=== PATIENT | male | born 1950 | race Caucasian/White ===

== ENCOUNTER 2017-10-23 12:32 | Emergency (ER) | payer MEDICARE ==
[~2017-10-23] VITALS: Ht 162.6 cm; Wt 73.5 kg
--- OUTSIDE RECORDS SUMMARY | ~2017-10-23 | XMS | Clinical Summary ---
Demographics + + + | Address | [address] | | | [place] [address] | + + + | Home Phone | | + + + | Preferred Language | Unknown | + + + | Marital Status | | + + + | Taoism Affiliation | 1041 | + + + | Race | Unknown | + + + | Ethnic Group | Unknown | + + + Author + + + | Author | [facility] | | | and [place] | + + + | Organization | [facility] | | | and [place] | + + + | Address | Unknown | + + + | Phone | Unavailable | + + + Support + + +---------+ + | Name | Relationship | Address | Phone | + + +---------+ + | GRETCHEN JAVIER | ECON | Unknown | | + + +---------+ + | Manuela Badillo | ECON | Unknown | | + + +---------+ + Care Team Providers + +------+ + | Care Milling Operator Name | Role | Phone | + +------+ + | Andrei Presley | PP | | | MD | | | + +------+ + Allergies + + + + + + | Active Allergy | Reactions | Severity | Noted | Comments | | | | | Date | | + + + + + + | Cefuroxime | | | 06/09/20 | Joint pain. | | | | | 14 | | + + + + + + | Iodinated Diagnostic | Hives, Shortness Of | High | 06/09/20 | | | Agents | Breath | | 14 | | + + + + + + Current Medications + + +-------+---------+------+------+-------+ | Prescription | Sig. | Disp. | Refills | Star | End | Statu | | | | | | t | Date | s | | | | | | Date | | | + + +-------+---------+------+------+-------+ | oxyCODONE | Take 15 mg by mouth | | | | | Activ | | (ROXICODONE) 15 mg | every 4 hours as | | | | | e | | immediate release | needed. | | | | | | | tablet | | | | | | | + + +-------+---------+------+------+-------+ | metoprolol | Take 50 mg by mouth | | | | | Activ | | succinate | Daily. | | | | | e | | (TOPROL-XL) 50 mg 24 | | | | | | | | hr tablet | | | | | | | + + +-------+---------+------+------+-------+ | baclofen | Take 10 mg by mouth | | | | | Activ | | (LIORESAL) 10 mg | 3 times daily. | | | | | e | | tablet | | | | | | | + + +-------+---------+------+------+-------+ | albuterol (PROAIR | Inhale 2 puffs into | | | | | Activ | | HFA) 90 mcg/puff | the lungs every 6 | | | | | e | | inhaler | hours as needed. | | | | | | + + +-------+---------+------+------+-------+ | | Take 1 tablet by | | | | | Activ | | butalbital-acetamino | mouth every 4 hours | | | | | e | | phen-caffeine | as needed. | | | | | | | (FIORICET) per | | | | | | | | tablet | | | | | | | + + +-------+---------+------+------+-------+ | albuterol 2.5 mg/3 | Take 2.5 mg by | | | | | Activ | | mL nebulizer | nebulization every 6 | | | | | e | | solution | hours as needed. | | | | | | + + +-------+---------+------+------+-------+ Active Problems + + + | Problem | Noted Date | + + + | ANITA (obstructive sleep apnea) | 06/16/2014 | + + + | Abnormal chest x-ray | 06/16/2014 | + + + | Von Willebrand's disease (HCC) | | + + + | Osteoarthritis | | + + + | Lumbar spondylosis | | + + + | Hypertension | | + + + | Chronic pansinusitis | | + + + Immunizations + + + + | Name | Dates Previously Given | Next Due | + + + + | INFLUENZA PF 18 Y OR | 06/03/2013 | | | >,TRIVALENT | | | | RECOMBINANT | | | + + + + | PNEUMOCOCCAL | 06/03/2013 | | | POLYSACCHARIDE | | | | 23-VALENT (PPSV23) | | | + + + + Family History + + +------+ + | Medical History | Relation | Name | Comments | + + +------+ + | Cancer | Brother | | brain tumor | + + +------+ + | Heart disease | Brother | | | + + +------+ + | Cancer | Father | | in his hips | + + +------+ + | Other (see comment) | Father | | bone disease from exposure to coral | + + +------+ + | Alcohol abuse | Mother | | | + + +------+ + + +------+ + + | Relation | Name | Status | Comments | + +------+ + + | Brother | | | heart disease | + +------+ + + | Brother | | Alive | | + +------+ + + | Father | | | cancer | + +------+ + + | Mother | | | alcohol abuse | + +------+ + + | Sister | | Alive | | + +------+ + + | Sister | | Alive | | + +------+ + + | Sister | | Alive | | + +------+ + + | Sister | | Alive | | + +------+ + + | Sister | | Alive | | + +------+ + + | Sister | | Alive | | + +------+ + + Social History + + + +--------+ + | Tobacco Use | Types | Packs/Day | Years | Date | | | | | Used | | + + + +--------+ + | Former Smoker | Cigarettes | 1 | 19 | Quit: 11/13/2013 | + + + +--------+ + + + +---------+ + | Alcohol Use | Drinks/We | oz/Week | Comments | | | ek | | | + + +---------+ + | Yes | | 0.0 | 4-6 per day at the most, ranges from 0 to | | | | | 4-6 | + + +---------+ + + + + | Sex Assigned at | Date Recorded | | | | + + + | Not on file | | + + + Last Filed Vital Signs + + + + | Vital Sign | Reading | Time Taken | + + + + | Blood Pressure | 126/80 | 06/16/20144 PST | + + + + | Pulse | 87 | 06/16/20144 PST | + + + + | Temperature | 37 C (98.6 F) | 06/16/20144 PST | + + + + | Respiratory Rate | 14 | 06/03/2014 1336 PST | + + + + | Oxygen Saturation | 95% | 06/16/20141433 PST | + + + + | Inhaled Oxygen | - | - | | Concentration | | | + + + + | Weight | 76.4 kg (168 lb 6.4 | 06/16/20141433 PST | | | oz) | | + + + + | Height | 161.3 cm (5' 3.5") | 06/16/20141433 PST | + + + + | Body Mass Index | 29.36 | 06/16/20141433 PST | + + + + Plan of Treatment + + + + + | Health Maintenance | Due Date | Last Done | Comments | + + + + + | Hepatitis C | | | | | Screening | 0 | | | + + + + + | Vaccine: | | | | | Dtap/Tdap/Td (1 - | 9 | | | | Tdap) | | | | + + + + + | COLON CANCER | | | | | SCREENING | 0 | | | | (COLONOSCOPY EVERY | | | | | 10 YEARS 50-75) | | | | + + + + + | Vaccine: Zoster (#1) | | | | | | 0 | | | + + + + + | Vaccine: | | 06/03/2013 | | | Pneumococcal 65+ | 5 | | | | Low/Medium Risk (1 | | | | | of 2 - PCV13) | | | | + + + + + | Vaccine: Influenza | | 06/03/2013 | | | (Season Ended) | 8 | | | + + + + + Results Not on filefrom Last 3 Months Insurance + +--------+ +--------+ +---------+ | Payer | Benefi | Subscriber | Type | Phone | Address | | | t Plan | ID | | | | | | / | | | | | | | Group | | | | | + +--------+ +--------+ +---------+ | MEDICARE | MEDICA | xxxxxxxxxx | Medica | +- | | | | RE | | re | [phone] | | | | PART A | | | | | | | AND B | | | | | + +--------+ +--------+ +---------+ | HEALTHNET | HEALTH | xxxxxxxxx | Indemn | [phone] | | | | NET | | ity | [phone] | | | | MDCR | | | | | | | SUPPL | | | | | + +--------+ +--------+ +---------+ + +--------+ +--------+ + + | Guarantor Name | Accoun | Relation to | Date | Phone | Billing Address | | | t Type | Patient | of | | | | | | | | | | + +--------+ +--------+ + + | KIKE BADILLO | Person | Self | [birth year] | Home: | [address] | | | al/Fam | | 1950 | [phone] | [place] [address] | | | tish | | | [phone] | | + +--------+ +--------+ + +
--- OUTSIDE RECORDS SUMMARY | ~2017-10-23 | XMS | Clinical Summary ---
Demographics + + + | Address | [address] | | | [place] [address] | + + + | Home Phone | | + + + | Preferred Language | Unknown | + + + | Marital Status | | + + + | Caodaism Affiliation | Unknown | + + + | Race | White | + + + | Ethnic Group | Not or | + + + Author + + + | Author | [facility] | + + + | Organization | [facility] | + + + | Address | Unknown | + + + | Phone | Unavailable | + + + Support + + +---------+ + | Name | Relationship | Address | Phone | + + +---------+ + | Bridgett Irwin | ECON | Unknown | | + + +---------+ + Care Team Providers + +------+ + | Care Chartered Wealth Manager Name | Role | Phone | + +------+ + PP | Unavailable | + +------+ + Source Comments MESERET is fully live on both [facility] Ambulatory and [facility] Allergies + + + + + + | Active Allergy | Reactions | Severity | Noted | Comments | | | | | Date | | + + + + + + | Clarification Needed | Angioedema | High | 04/23/20 | Reaction to Metal | | | | | 14 | "in mouth" | + + + + + + | Contrast Medium | Anaphylaxis, Contact | High | 04/23/20 | | | | Dermatitis | | 14 | | + + + + + + Current Medications + + +-------+---------+------+------+-------+ | Prescription | Sig. | Disp. | Refills | Star | End | Statu | | | | | | t | Date | s | | | | | | Date | | | + + +-------+---------+------+------+-------+ | baclofen 10 mg | Take 10 mg by mouth | | | | | Activ | | oral tablet | two times daily. | | | | | e | + + +-------+---------+------+------+-------+ | oxyCODONE, | Take 5 mg by mouth | | | | | Activ | | immediate release, 5 | every six hours as | | | | | e | | mg oral tablet | needed. | | | | | | + + +-------+---------+------+------+-------+ | | Take 1 tablet by | | | | | Activ | | losartan-hydrochloro | mouth once daily. | | | | | e | | thiazide 50-12.5 mg | | | | | | | | oral tablet | | | | | | | + + +-------+---------+------+------+-------+ | metoprolol | Take 50 mg by mouth | | | | | Activ | | succinate 50 mg oral | once daily. | | | | | e | | tablet extended | | | | | | | | release 24 hr | | | | | | | + + +-------+---------+------+------+-------+ Active Problems Not on file Social History + +-------+ +--------+ + | Tobacco Use | Types | Packs/Day | Years | Date | | | | | Used | | + +-------+ +--------+ + | Former Smoker | | | | Quit: 08/16/2013 | + +-------+ +--------+ + + + + | Sex Assigned at | Date Recorded | | | | + + + | Not on file | | + + + Last Filed Vital Signs + + + + | Vital Sign | Reading | Time Taken | + + + + | Blood Pressure | 126/76 | 04/23/2014 9:55 AM PDT | + + + + | Pulse | 75 | 04/23/2014 9:55 AM PDT | + + + + | Temperature | - | - | + + + + | Respiratory Rate | - | - | + + + + | Oxygen Saturation | - | - | + + + + | Inhaled Oxygen | - | - | | Concentration | | | + + + + | Weight | 77.1 kg (170 lb) | 04/23/2014 9:55 AM PDT | + + + + | Height | 162.6 cm (5' 4") | 04/23/2014 9:55 AM PDT | + + + + | Body Mass Index | 29.18 | 04/23/2014 9:55 AM PDT | + + + + Plan of Treatment + + + + + | Health Maintenance | Due Date | Last Done | Comments | + + + + + | INFLUENZA VACCINE | | | | | (FLU SHOT) | 8 | | | + + + + + Results Not on filefrom Last 3 Months
--- OUTSIDE RECORDS SUMMARY | ~2017-10-23 | XMS | Clinical Summary ---
Demographics + + + | Address | [address] | | | [place] [address] | + + + | Home Phone | | + + + | Preferred Language | Unknown | + + + | Marital Status | | + + + | Faith Affiliation | 1041 | + + + | Race | Unknown | + + + | Ethnic Group | Unknown | + + + Author + + + | Author | [facility] | + + + | Organization | [facility] | + + + | Address | Unknown | + + + | Phone | Unavailable | + + + Support + + + + + | Name | Relationship | Address | Phone | + + + + + | Manuela Baldwin | ECON | [address] | | | | | [place] | | | | | [address] | | + + + + + Care Team Providers + +------+ + | Care Snowboard Instructor Name | Role | Phone | + +------+ + | Clinic, [facility] | PP | Unavailable | | Community | | | + +------+ + Allergies [...]
--- OUTSIDE RECORDS SUMMARY | ~2017-10-23 | XMS | Clinical Summary ---
Demographics + + + | Address | [address] | | | [place] [address] | + + + | Home Phone | | + + + | Preferred Language | Unknown | + + + | Marital Status | | + + + | Faith Affiliation | 1041 | + + + | Race | Unknown | + + + | Ethnic Group | Unknown | + + + Author + + + | Author | [facility] | | | and [place] | + + + | Organization | [facility] | | | and [place] [...] Team Providers + +------+ + | Care Hand Knitter Name | Role | Phone | + [...] | HEALTH | xxxxxxxxx | Indemn | [phone] | | | | NET | | ity | [phone] | | | | MDCR | | [...] | Self | [birth year] | Home: | [address] | | | al/Fam | | 1950 | [phone] | [place] [address] | | | tish | | | [phone] | | + +--------+ +--------+ + +
--- OUTSIDE RECORDS SUMMARY | ~2017-10-23 | XMS | Clinical Summary ---
Demographics + + + | Address | [address] | | | [place] [address] | + + + | Home Phone | | + + + | Preferred Language | Unknown | + + + | Marital Status | | + + + | Jain Affiliation | Unknown | + + + | Race | White | + + + | Ethnic Group | Not or | + + + Author + + + | Author | [facility] | + + + | Organization | [facility] | + + + | Address | Unknown | + + + | Phone | Unavailable | + + + Support + + +---------+ + | Name | Relationship | Address | Phone | + + +---------+ + | Bridgett Irwin | ECON | Unknown | | + + +---------+ + Care Team Providers + +------+ + | Care Cook Dinner Name | Role | Phone | + +------+ + PP | Unavailable | + +------+ + Source Comments MESERET is fully live on both [facility] Ambulatory and [facility] InPatient.[facility] Allergies + + + + + + [...]
--- OUTSIDE RECORDS SUMMARY | ~2017-10-23 | XMS | Clinical Summary ---
Demographics + + + | Address | [address] | | | [place] [address] | + + + | Home Phone | | + + + | Preferred Language | Unknown | + + + | Marital Status | | + + + | Islam Affiliation | 1041 | + + + | Race | Unknown | + + + | Ethnic Group | Unknown | + + + Author + + + | Author | [facility] | + + + | Organization | [facility] | + + + | Address | Unknown | + + + | Phone | Unavailable | + + + Support + + + + + | Name | Relationship | Address | Phone | + + + + + | Manuela Baldwin | ECON | [address] | | | | | [place] | | | | | [address] | | + + + + + Care Team Providers + +------+ + | Care Engraver Flatware Name | Role | Phone | + +------+ + | Clinic, [facility] | PP | Unavailable | | Community [...]
[~2017-10-23 12:32] MED LIST: ADVAIR 250-501 EACH IH; ASPIRIN EC81 MG PO; ATIVAN1 MG PO; AZITHROMYCIN250 MG PO; BACLOFEN10 MG; BACLOFEN10 MG PO; BUTALB-ACETAMI1 EACH PO; CEPACOL SORE T1 EAC5 MM; DAYPRO600 MG PO; FIORICET 50-301 EACH PO; FLOMAX0.4 MG PO; HYDROMORPHONE HC4 MG PO; HYDROXYZINE HCL50 MG PO; LISINOPRIL10 MG; LISINOPRIL20 MG PO; LOSARTAN-HCTZ1 EACH PO; MEDROL4 M1 PO; METOPROLOL SUCC50 MG PO; MIRALAX17 GM PO; OXYCODONE HCL15 MG PO; OXYCODONE HCL5 MG PO; OXYCONTIN10 MG PO; PERCOCET 5-3251 EACH PO; PREDNISONE20 MG PO; PROAIR HFA8.5 GM IH; ROBAXIN500 MG PO; ROPINIROLE HCL0.5 MG PO; TAMSULOSIN HCL0.4 MG PO; VOLTAREN-XR100 MG PO; XARELTO10 MG PO
== END 2017-10-23 15:21 | disposition home or self-care (01) ==
LOC: ED 12:32
PROC: 0T9B70Z Drainage of Bladder with Drainage Device, Via Natural or Artificial Opening (ICD-10-PCS; principal; 2017-10-23)
PROC: BT40ZZZ Ultrasonography of Bladder (ICD-10-PCS; principal; 2017-10-23)
DX: R33.9 Retention of urine, unspecified (principal); I10 Essential (primary) hypertension; F17.200 Nicotine dependence, unspecified, uncomplicated; Z91.041 Radiographic dye allergy status; Z79.899 Other long term (current) drug therapy
CPT/HCPCS: 51702; 51798; 81001; 99284

== ENCOUNTER 2018-03-30 08:49 | Emergency (ER) | payer MEDICARE ==
[~2018-03-30] VITALS: Ht 162.6 cm; Wt 73.5 kg
--- OUTSIDE RECORDS SUMMARY | ~2018-03-30 | XMS | Clinical Summary ---
Demographics + + + | Address | [address] | | | [place] [address] | + + + | Home Phone | | + + + | Preferred Language | Unknown | + + + | Marital Status | | + + + | Synagogue Affiliation | 1041 | + + + | Race | Unknown | + + + | Ethnic Group | Unknown | + + + Author + + + | Author | [facility] | | | and [place] | + + + | Organization | [facility] | | | and [place] [...] Team Providers + +------+ + | Care Cullet Trucker Name | Role | Phone | + [...] +--------+ +---------+ | MEDICARE | MEDICA | [id number] | Medica | +1- | | | | RE | | re | [phone] | | | | PART A | | | | | | | AND B | | | | | + +--------+ +--------+ +---------+ | HEALTHNET | HEALTH | [id number] | Indemn | [phone] | | | | NET | | [...] | Self | [birth year] | Home: | [address] | | | [place] | | 1950 | [phone] | [place] [address] | | | [place] | | | [address] | | + +--------+ +--------+ + +
--- OUTSIDE RECORDS SUMMARY | ~2018-03-30 | XMS | Clinical Summary ---
Demographics + + + | Address | [address] | | | [place] [address] | + + + | Home Phone | | + + + | Preferred Language | Unknown | + + + | Marital Status | | + + + | Evangelical Affiliation | Unknown | + + + | Race | White | + + + | Ethnic Group | Not or | + + + Author + + + | Author | [facility] | + + + | Organization | [facility] | + + + | Address | Unknown | + + + | Phone | Unavailable | + + + Support + + +---------+ + | Name | Relationship | Address | Phone | + + +---------+ + | Bridgett Irwin | ECON | Unknown | | + + +---------+ + Care Team Providers + +------+ + | Care Rotary Operator Name | Role | Phone | + +------+ + PP | Unavailable | + +------+ + Source Comments MESERET is fully live on both [facility] Ambulatory and [facility] InPatient.[facility] Allergies + + + + + + [...] | + + + + + | Pneumococcal (Adult) | | | | | (1 of 2 - PCV13) | 5 | | | + + + + + | INFLUENZA VACCINE | | | | | (FLU SHOT) | 8 | | | + + + + + Results Not on filefrom Last 3 Months Insurance + +--------+ +--------+ + + | Payer | Benefi | Subscriber | Type | Phone | Address | | | t Plan | ID | | | | | | / | | | | | | | Group | | | | | + +--------+ +--------+ + + | MEDICARE | MEDICA | xxxxxxxxxx | Medica | +1- | [address] | | | RE A & | | re | [phone] | [place] [address] | | | B | | | | | + +--------+ +--------+ + + | COMMERCIAL | INDIVI | xxxxxxxxx | Indemn | | | | INDIVIDUAL | DUAL | | ity | | | | | COMMER | | | | | | | CIAL | | | | | + +--------+ +--------+ + + + +--------+ +--------+ + + | Guarantor Name | Accoun | Relation to | Date | Phone | Billing Address | | | t Type | Patient | of | | | | | | | | | | + +--------+ +--------+ + + | KIKE BADILLO | Person | Self | [birth year] | Home: | [address] | | | [place] | | 1950 | [phone] | [place] [address] | | | [place] | | | [address] | | + +--------+ +--------+ + +
--- OUTSIDE RECORDS SUMMARY | ~2018-03-30 | XMS | Clinical Summary ---
Demographics + + + | Address | [address] | | | [place] [address] | + + + | Home Phone | | + + + | Preferred Language | Unknown | + + + | Marital Status | | + + + | Rastafari Affiliation | 1041 | + + + | Race | Unknown | + + + | Ethnic Group | Unknown | + + + Author + + + | Author | [facility] | | | and [place] | + + + | Organization | [facility] | | | and [place] [...] Team Providers + +------+ + | Care Bi Lead Name | Role | Phone | + [...] +--------+ +---------+ | MEDICARE | MEDICA | [id number] | Medica | +1- | | | | RE | | re | [phone] | | | | PART A | | | | | | | AND B | | | | | + +--------+ +--------+ +---------+ | HEALTHNET | HEALTH | [id number] | Indemn | [phone] | | | | NET | | [...] | Self | [birth year] | Home: | [address] | | | al/[place] | | 1950 | [phone] | [place] [address] | | | [place] | | | [address] | | + +--------+ +--------+ + +
--- OUTSIDE RECORDS SUMMARY | ~2018-03-30 | XMS | Clinical Summary ---
Demographics + + + | Address | [address] | | | [place] [address] | + + + | Home Phone [...] + + | Author | [facility] | + + + | Organization | [facility] | + + + | Address | Unknown | + + + | Phone | Unavailable | + + + Support + + + + + | Name | Relationship | Address | Phone | + + + + + | Manuela Baldwin | ECON | [address] | | | | | [place] | | | | | [address] | | + + + + + Care Team Providers + +------+ + | Care Film Waxer Name | Role | Phone | + +------+ + | Medicine, [place] | PP | Unavailable | | Family [...]
--- OUTSIDE RECORDS SUMMARY | ~2018-03-30 | XMS | Clinical Summary ---
Demographics + + + | Address | [address] | | | [place] [address] | + + + | Home Phone | | + + + | Preferred Language | Unknown | + + + | Marital Status | | + + + | Hoahaoism Affiliation | 1041 | + + + | Race | Unknown | + + + | Ethnic Group | Unknown | + + + Author + + + | Author | [facility] | + + + | Organization | [facility] | + + + | Address | Unknown | + + + | Phone | Unavailable | + + + Support + + + + + | Name | Relationship | Address | Phone | + + + + + | Manuela Baldwin | ECON | [address] | | | | | [place] | | | | | [address] | | + + + + + Care Team Providers + +------+ + | Care Reexaminer Name | Role | Phone | + +------+ + | Medicine, [place] | PP | Unavailable | | Family [...]
--- OUTSIDE RECORDS SUMMARY | ~2018-03-30 | XMS | Clinical Summary ---
Demographics + + + | Address | [address] | | | [place] [address] | + + + | Home Phone | | + + + | Preferred Language | Unknown | + + + | Marital Status | | + + + | Spiritism Affiliation | Unknown | + + + | Race | White | + + + | Ethnic Group | Not or | + + + Author + + + | Author | [facility] | + + + | Organization | [facility] | + + + | Address | Unknown | + + + | Phone | Unavailable | + + + Support + + +---------+ + | Name | Relationship | Address | Phone | + + +---------+ + | Bridgett Irwin | ECON | Unknown | | + + +---------+ + Care Team Providers + +------+ + | Care Core Stripper Name | Role | Phone | + +------+ + PP | Unavailable | + +------+ + Source Comments MESERET is fully live on both [facility] Ambulatory and [facility] InPatient.[facility] Allergies + + + + [...] | re | [phone] | [place] [address] | | | B | | | [...] | Self | [birth year] | Home: | [address] | | | [place] | | 1950 | [phone] | [place] [address] | | | [place] | | | [address] | | + +--------+ +--------+ + +
[2018-03-30] MEDS ORDERED: GABAPENTIN600 MG PO (09:01)
== END 2018-03-30 12:44 | disposition home or self-care (01) ==
LOC: ED 08:49
PROC: 0R9N3ZZ Drainage of Right Wrist Joint, Percutaneous Approach (ICD-10-PCS; principal; 2018-03-30)
DX: M25.531 Pain in right wrist (principal); I10 Essential (primary) hypertension; F17.200 Nicotine dependence, unspecified, uncomplicated; Z91.041 Radiographic dye allergy status; Z79.899 Other long term (current) drug therapy
CPT/HCPCS: 20605; 73110; 80053; 84550; 85025; 85651; 96374; 96375; 99283; J1170; J1885; J3301

== ENCOUNTER → 2018-05-11 | Emergency (ER) | payer MEDICARE ==
[~2018-05-11] VITALS: Ht 162.6 cm; Wt 73.5 kg
[~2018-05-11] MED LIST changes: +GABAPENTIN600 MG PO
--- OUTSIDE RECORDS SUMMARY | ~2018-05-11 | XMS | Clinical Summary ---
Demographics + + + | Address | [address] | | | [place] [address] | + + + | Home Phone | | + + + | Preferred Language | Unknown | + + + | Marital Status | | + + + | Zoroastrian Affiliation | 1041 | + + + | Race | Unknown | + + + | Ethnic Group | Unknown | + + + Author + + + | Author | [facility] | + + + | Organization | [facility] | + + + | Address | Unknown | + + + | Phone | Unavailable | + + + Support + + + + + | Name | Relationship | Address | Phone | + + + + + | Manuela Baldwin | ECON | [address] | | | | | [place] | | | | | [address] | | + + + + + Care Team Providers + +------+ + | Care Security Sales Manager Name | Role | Phone | + +------+ + | Medicine, [place] | PP | Unavailable | | Family | | | + +------+ + Allergies Not on File Current Medications Not on file Active Problems Not on file Social History + +-------+ +--------+------+ | Tobacco [...] on file | | + + + Plan of Treatment Not on file Results Not on filefrom Last 3 Months"
--- OUTSIDE RECORDS SUMMARY | ~2018-05-11 | XMS | Clinical Summary ---
Demographics + + + | Address | [address] | | | [place] [address] | + + + | Home Phone | | + + + | Preferred Language | Unknown | + + + | Marital Status | | + + + | Mandaeism Affiliation | 1041 | + + + | Race | Unknown | + + + | Ethnic Group | Unknown | + + + Author + + + | Author | [facility] | | | and [place] | + + + | Organization | [facility] | | | and [place] [...] Team Providers + +------+ + | Care Rectifier Operator Name | Role | Phone | [...] + + + + | Vaccine: Zoster (1 | | | | | of 2) | 0 | | | + + + + + | Vaccine: | | 06/03/2013 | | | Pneumococcal 65+ | 5 | | | | Low/Medium Risk (1 | | | | | of 2 - PCV13) | | | | + + + + + | Vaccine: Influenza | | 06/03/2013 | | | (#1) | 8 | | | + + [...] +--------+ +---------+ | MEDICARE | MEDICA | [id number] | Medica | +1- | | | | RE | | re | [phone] | | | | PART A | | | | | | | AND B | | | | | + +--------+ +--------+ +---------+ | HEALTHNET | HEALTH | [id number] | Indemn | [phone] | | | | NET | | ity | [phone] | | | | MDCR | | [...] | Self | [birth year] | Home: | [address] | | | [place] | | 1950 | [phone] | [place] [address] | | | [place] | | | [address] | | + +--------+ +--------+ + +
--- OUTSIDE RECORDS SUMMARY | ~2018-05-11 | XMS | Clinical Summary ---
Demographics + + + | Address | [address] | | | [place] [address] | + + + | Home Phone | | + + + | Preferred Language | Unknown | + + + | Marital Status | | + + + | Baptist Affiliation | 1041 | + + + | Race | Unknown | + + + | Ethnic Group | Unknown | + + + Author + + + | Author | [facility] | | | and [place] | + + + | Organization | [facility] | | | and [place] [...] Team Providers + +------+ + | Care Lockstitch Pocket Setter Name | Role | Phone | + [...] +--------+ +---------+ | MEDICARE | MEDICA | [id number] | Medica | +1- | | | | RE | | re | [phone] | | | | PART A | | | | | | | AND B | | | | | + +--------+ +--------+ +---------+ | HEALTHNET | HEALTH | [id number] | Indemn | [phone] | | | | NET | | [...] | Self | [birth year] | Home: | [address] | | | [place] | | 1950 | [phone] | [place] [address] | | | [place] | | | [address] | | + +--------+ +--------+ + +
--- OUTSIDE RECORDS SUMMARY | ~2018-05-11 | XMS | Clinical Summary ---
Demographics + + + | Address | [address] | | | [place] [address] | + + + | Home Phone | | + + + | Preferred Language | Unknown | + + + | Marital Status | | + + + | Rastafari Affiliation | Unknown | + + + | Race | White | + + + | Ethnic Group | Not or | + + + Author + + + | Author | [facility] | + + + | Organization | [facility] | + + + | Address | Unknown | + + + | Phone | Unavailable | + + + Support + + +---------+ + | Name | Relationship | Address | Phone | + + +---------+ + | Bridgett Irwin | ECON | Unknown | | + + +---------+ + Care Team Providers + +------+ + | Care Nickel Plater Name | Role | Phone | + +------+ + PP | Unavailable | + +------+ + Source Comments MESERET is fully live on both [facility] Ambulatory and [facility] InPatient.Pending Sale To [facility] Allergies + + + + + + [...] | | | | vaccination (#1) | 8 | | | + [...] | MEDICA | xxxxxxxxxx | Medica | [phone] | [phone] | | | RE A & | | re | [phone] | [place] [address] | | | B | | | [...] | Self | [birth year] | Home: | [address] | | | brandan/Segun | | 1950 | [phone] | [place] [address] | | | tish | | | [phone] | | + +--------+ +--------+ + +
--- OUTSIDE RECORDS SUMMARY | ~2018-05-11 | XMS | Clinical Summary ---
Demographics + + + | Address | [address] | | | [place] [address] | + + + | Home Phone [...] + + | Author | [facility] | + + + | Organization | [facility] | + + + | Address | Unknown | + + + | Phone | Unavailable | + + + Support + + + + + | Name | Relationship | Address | Phone | + + + + + | Manuela Baldwin | ECON | [address] | | | | | [place] | | | | | [address] | | + + + + + Care Team Providers + +------+ + | Care Balancing Machine Operator Name | Role | Phone | + +------+ + | [place], [place] | PP | Unavailable | | Family [...]
--- OUTSIDE RECORDS SUMMARY | ~2018-05-11 | XMS | Clinical Summary ---
Demographics + + + | Address | [address] | | | [place] [address] | + + + | Home Phone | | + + + | Preferred Language | Unknown | + + + | Marital Status | | + + + | Pentecostalism Affiliation | Unknown | + + + | Race | White | + + + | Ethnic Group | Not or | + + + Author + + + | Author | [facility] | + + + | Organization | [facility] | + + + | Address | Unknown | + + + | Phone | Unavailable | + + + Support + + +---------+ + | Name | Relationship | Address | Phone | + + +---------+ + | Bridgett Irwin | ECON | Unknown | | + + +---------+ + Care Team Providers + +------+ + | Care Quality Process Engineer Name | Role | Phone | + +------+ + PP | Unavailable | + +------+ + Source Comments MESERET is fully live on both [facility] Ambulatory and [facility] InPatient.[facility] Allergies + + + + + + [...] | | re | [phone] | [place] [address] | | | B | | | [...] | Self | [birth year] | Home: | [address] | | | brandan/[place] | | 1950 | [phone] | [place] [address] | | | tish | | | [phone] | | + +--------+ +--------+ + +
--- NOTE | 2018-05-12 12:37 | EKG ---
[facility] [address] [place], [place] [address] Signed Sinus rhythm with 1st degree AV block Possible Left atrial enlargement Septal infarct , age undetermined Abnormal ECG No previous ECGs available Confirmed by MERCEDES LLOYD DO ([id number]) on 05/12/2018 12:37:06 PM Electronically Signed By: MERCEDES LLOYD DO 05/12/18 1237 PATIENT NAME: NATHANIEL BADILLO Electrocardiogram DATE OF : 50 PHYSICIAN: MERCEDES LLOYD DO REPORT #: [id number] REPORT IS CONFIDENTIAL AND NOT TO BE RELEASED WITHOUT AUTHORIZATION
--- NOTE | 2018-05-12 12:38 | EKG ---
[facility] [address] [place], [place] [address] Signed Sinus rhythm with 1st degree AV block Possible Left atrial enlargement Septal infarct (cited on or before 11-MAY-2018) Abnormal ECG When compared with ECG of 11-MAY-2018 20:43, (Unconfirmed) No significant change was found Confirmed by MERCEDES LLOYD DO ([id number]) on 05/12/2018 12:38:31 PM Electronically Signed By: MERCEDES LLOYD DO 05/12/18 1238 PATIENT NAME: ABYNATHANIEL Electrocardiogram DATE OF : 50 PHYSICIAN: MERCEDES LLOYD DO REPORT #: [id number] REPORT IS CONFIDENTIAL AND NOT TO BE RELEASED WITHOUT AUTHORIZATION
== END ==
LOC: ED 20:38
DX: R06.02 Shortness of breath (principal); I10 Essential (primary) hypertension; F17.200 Nicotine dependence, unspecified, uncomplicated; Z91.041 Radiographic dye allergy status; Z79.899 Other long term (current) drug therapy
CPT/HCPCS: 70450; 71046; 80053; 84484; 85025; 93005; 93010; 94640; 96372; 99285; J1650

== ENCOUNTER 2020-01-22 18:29 | Emergency (ER) | payer MEDICARE ==
[~2020-01-22] VITALS: Ht 162.6 cm; Wt 73.5 kg
--- OUTSIDE RECORDS SUMMARY | ~2020-01-22 | XMS | Encounter Summary ---
Demographics + + + | Address | [address] | | | [place] [address] | + + + | Home Phone | | + + + | Preferred Language | Unknown | + + + | Marital Status | | + + + | Pentecostal Affiliation | [phone] | + + + | Race | Unknown | + + + | Ethnic Group | Unknown | + + + Author + + + | Author | [facility] | | | and [place] | + + + | Organization | [facility] | | | and [place] | + + + | Address | Unknown | + + + | Phone | Unavailable | + + + Support + + + + + | Name | Relationship | Address | Phone | + + + + + | Bridgett Neal | ECON | Unknown | | + + + + + | Manuela Badillo | ECON | [address] | | | | | [place] | | | | | [address] | | + + + + + Care Team Providers + +------+ + | Care Network Cabler Name | Role | Phone | + +------+ + | nAdrei Presley PCP | | | MD | | | + +------+ + Encounter Details +--------+ + + + + | Date | Type | Department | Care Team | Description | +--------+ + + + + | // | Orders Only | [place] [facility] | Lin Pike, | | | 2010 | | CONVERSION | MD [address] | | | | | [address]FAC[address] | [place] [address] | | | | | [address] [place], [place] | [phone] | | | | | [address] | | | | | | [phone] | | | +--------+ + + + + Social History + +-------+ +--------+------+ | Tobacco Use | Types | Packs/Day | Years | Date | | | | | Used | | + +-------+ +--------+------+ | Never Assessed | | | | | + +-------+ +--------+------+ + + + | Sex Assigned at | Date Recorded | | | | + + + | Not on file | | + + + documented as of this encounter Plan of Treatment Not on filedocumented as of this encounter Procedures + +--------+ + + + | Procedure Name | Priori | Date/Time | Associated Diagnosis | Comments | | | ty | | | | + +--------+ + + + | ECHO COMPLETE | Routin | 04/25/2011 | | Results for this | | | e | 4:05 PM | | procedure are in the | | | | PDT | | results section. | + +--------+ + + + documented in this encounter Results ECHO Complete (04/25/2011 4:05 PM PDT) + + | Specimen | + + | | + + + + + | Narrative | Performed At | + + + | [place] [address] | | | Patient Name: NATHANIEL BADILLO Date of : | | | 1950 Medical Record: [id number] Account: [id number] | | | Exam Date/Time: 04/25/2011 15:17 Performing | | | Physician: Ronny Black Order Detail: [id number] Exam Description: | | | ECHO CARDIAC ADULT WITH DOPPLER COLOR FLOW | | | | | | INDICATIONS LVEF, WALL MOTION, CP CONCLUSIONS | | | 1. Left ventricular systolic function is hyperdynamic | | | with an estimated EF of >70%. 2. The diastolic filling pattern | | | indicates impaired relaxation consistent with mild dysfunction (Grade | | | I). 3. There is borderline pulmonary hypertension. FINDINGS | | | -------- ECG rhythm: Sinus rhythm. Study: A 2-dimensional | | | transthoracic echocardiogram with m-mode, spectral and color flow | | | Doppler was perfomed. Study: This was a technically adequate study. | | | Left Ventricle: Left ventricular systolic function is hyperdynamic | | | with an estimated EF of >70%. Left Ventricle: Left Ventricle ejection | | | fraction by m-mode measures 79%. Left Ventricle: The left ventricle | | | cavity size is normal. Left Ventricle: Left ventricular wall | | | thickness is normal. Left Ventricle: The diastolic filling pattern | | | indicates impaired relaxation consistent with mild dysfunction (Grade | | | I). Right Ventricle: The right ventricle is normal in size. Right | | | Ventricle: The right ventricular systolic function is normal. Left | | | Atrium: The left atrial size is normal Left Atrium: , and the LA | | | measures 3.9cm. Right Atrium: The right atrium is mildly enlarged | | | Right Atrium: , and the RA measures 5.2cm. Aortic Valve: The aortic | | | valve is trileaflet and appears structurally normal. Aortic Valve: | | | There is no evidence of aortic regurgitation. Aortic Valve: There is | | | no evidence of aortic stenosis. Mitral Valve: The mitral valve is | | | normal. Mitral Valve: There is trace mitral regurgitation. Tricuspid | | | Valve: The tricuspid valve appears structurally normal. Tricuspid | | | Valve: No regurgitation noted Tricuspid Valve: There is borderline | | | pulmonary hypertension. Tricuspid Valve: The right ventricular | | | systolic pressure (pulmonary artery systolic pressure), as measured by | | | Doppler, is 35mmHg. Pulmonic Valve: The pulmonic valve is normal. | | | Pulmonic Valve: Trace/mild (physiologic) pulmonic regurgitation. | | | Pericardium: There is no pericardial effusion. IVC/Hepatic Veins: The | | | IVC is small (<1.5cm) and collapses with sniff, consistent with | | | central venous pressures of 0-5mmHg. Mass: No mass visualized | | | Thrombus: No clot visualized Septum: No ASD observed. Septum: No VSD | | | observed. MEASUREMENTS IVC: 1.26 cm LA Major: | | | 5.02 cm EDV(Teich): 58.28 ml IVSd: 1.10 cm LVIDd: 3.70 | | | cm LVPWd: 1.03 cm LVOT Diam: 2.08 cm %FS: 47.12 % | | | EF(Teich): 79.29 % ESV(Teich): 12.06 ml IVSs: 1.46 cm | | | LVIDs: 1.95 cm LVPWs: 1.52 cm SV(Teich): 46.21 ml RA | | | Major: 5.20 cm RVIDd: 2.39 cm LVEF MOD A2C: 72.89 % SV MOD | | | A2C: 31.98 ml LVEF MOD A4C: 70.28 % SV MOD A4C: 50.41 ml | | | EF Biplane: 73.23 % LVEDV MOD BP: 59.78 ml LVESV MOD BP: | | | 16.00 ml LVEDV MOD A2C: 43.87 ml LVLd A2C: 7.31 cm LVEDV MOD | | | A4C: 71.72 ml LVLd A4C: 8.52 cm LVESV MOD A2C: 11.89 ml | | | LVLs A2C: 4.92 cm LVESV MOD A4C: 21.30 ml LVLs A4C: 5.85 cm | | | CO Biplane: 4.03 l/min HR: 92.21 BPM R-R: 650.64 ms | | | LAESV(A-L): 55.85 ml LAESV Index (A-L): 30.86 ml/m2 LAAs A2C: | | | 19.22 cm2 LAESV A-L A2C: 57.80 ml LALs A2C: 5.42 cm LAAs | | | A4C: 17.50 cm2 LAESV A-L A4C: 50.87 ml LALs A4C: 5.11 cm | | | Ao Diam: 3.13 cm AV Cusp: 2.23 cm LA Diam: 3.91 cm LA/Ao: | | | 1.25 %FS: 46.66 % EDV(Teich): 62.79 ml EF(Teich): 78.73 | | | % ESV(Teich): 13.35 ml IVSd: 1.07 cm IVSs: 1.22 cm | | | LVIDd: 3.82 cm LVIDs: 2.03 cm LVPWd: 0.96 cm LVPWs: | | | 1.98 cm SV(Teich): 49.44 ml D-E Excursion: 1.86 cm E-F Ford: | | | 0.06 m/s EPSS: 0.06 cm HR: 85.89 BPM AV maxP.40 | | | mmHg AV meanP.55 mmHg AV Vmax: 1.52 m/s AV Vmean: 1.13 | | | m/s AV VTI: 30.35 cm TRAVIS Vmax: 3.21 cm2 TRAVIS (VTI): 2.84 | | | cm2 LVCI Dopp: 4.07 l/minm2 LVCO Dopp: 7.37 l/min HR: | | | 85.42 BPM LVOT maxP.28 mmHg LVOT meanP.96 mmHg LVSI | | | Dopp: 47.68 ml/m2 LVSV Dopp: 86.31 ml LVOT Vmax: 1.43 m/s | | | LVOT Vmean: 0.94 m/s LVOT VTI: 25.41 cm MCO: 406.65 ms MV | | | A Del: 0.78 m/s MV DecT: 275.72 ms MV E Del: 0.70 m/s MV | | | E/A Ratio: 0.90 MV PHT: 74.92 ms MVA By PHT: 2.93 cm2 MV A | | | Dur: 107.20 ms MV maxP.45 mmHg MV meanP.22 mmHg | | | MV Vmax: 0.78 m/s MV Vmean: 0.52 m/s MV VTI: 16.81 cm MVA | | | (VTI): 5.13 cm2 Septal e': 0.09 m/s Septal E/e': 7.69 | | | Lateral e': 0.14 m/s Lateral E/e': 4.88 P Vein A: 0.39 m/s | | | P Vein A Dur: 77.63 ms P Vein D: 0.38 m/s P Vein S/D Ratio: | | | 1.52 P Vein S: 0.58 m/s HR: 82.80 BPM PV maxP.97 | | | mmHg PV meanP.82 mmHg PV Vmax: 1.22 m/s PV Vmean: 0.79 | | | m/s PV VTI: 22.92 cm TR maxP.87 mmHg TR Vmax: 2.73 | | | m/s TV A Del: 0.55 m/s TV Dec Ford: 3.56 m/s2 TV Dec Time: | | | 146.24 ms TV E Del: 0.52 m/s TV E/A Ratio: 0.94 | | | Business Planning Director: PRIYA Authenticated by: Ronny Black Report Date/Time: | | | 04-25-2011 18:49:35 | | + + + + + | Procedure Note | + + | Tej Rodriguez Conversion - 03/08/2019 11:00 AM [facility] | | [place], [place] [address]: Patient Name: Tyree BADILLO of : | | 1950Medical Record: [id number]: [id number] | | Date/Time: 04/25/2011 15:17Performing Physician: Ronny Crowe Detail: [id number] | | Description: ECHO CARDIAC ADULT WITH DOPPLER COLOR | | FLOW INDICATIONS | | -LVEF, WALL MOTION, CP CONCLUSIONS 1. Left ventricular systolic function is | | hyperdynamic with an estimated EF of >70%.2. The diastolic filling pattern indicates | | impaired relaxation consistent with mild dysfunction (Grade I).3. There is borderline | | pulmonary hypertension. FINDINGS--------ECG rhythm: Sinus rhythm.Study: A 2-dimensional | | transthoracic echocardiogram with m-mode, spectral and color flow Doppler was | | perfomed.Study: This was a technically adequate study.Left Ventricle: Left ventricular | | systolic function is hyperdynamic with an estimated EF of >70%.Left Ventricle: Left | | Ventricle ejection fraction by m-mode measures 79%.Left Ventricle: The left ventricle | | cavity size is normal.Left Ventricle: Left ventricular wall thickness is normal.Left | | Ventricle: The diastolic filling pattern indicates impaired relaxation consistent with | | mild dysfunction (Grade I).Right Ventricle: The right ventricle is normal in size.Right | | Ventricle: The right ventricular systolic function is normal.Left Atrium: The left | | atrial size is normalLeft Atrium: , and the LA measures 3.9cm.Right Atrium: The right | | atrium is mildly enlargedRight Atrium: , and the RA measures 5.2cm.Aortic Valve: The | | aortic valve is trileaflet and appears structurally normal.Aortic Valve: There is no | | evidence of aortic regurgitation.Aortic Valve: There is no evidence of aortic | | stenosis.Mitral Valve: The mitral valve is normal.Mitral Valve: There is trace mitral | | regurgitation.Tricuspid Valve: The tricuspid valve appears structurally normal.Tricuspid | | Valve: No regurgitation notedTricuspid Valve: There is borderline pulmonary | | hypertension.Tricuspid Valve: The right ventricular systolic pressure (pulmonary artery | | systolic pressure), as measured by Doppler, is 35mmHg.Pulmonic Valve: The pulmonic valve | | is normal.Pulmonic Valve: Trace/mild (physiologic) pulmonic regurgitation.Pericardium: | | There is no pericardial effusion.IVC/Hepatic Veins: The IVC is small (<1.5cm) and | | collapses with sniff, consistent with central venous pressures of 0-5mmHg.Mass: No mass | | visualizedThrombus: No clot visualizedSeptum: No ASD observed.Septum: No VSD observed. | | MEASUREMENTS IVC: 1.26 cmLA Major: 5.02 cmEDV(Teich): 58.28 mlIVSd: | | 1.10 cmLVIDd: 3.70 cmLVPWd: 1.03 cmLVOT Diam: 2.08 cm%FS: 47.12 %EF(Teich): | | 79.29 %ESV(Teich): 12.06 mlIVSs: 1.46 cmLVIDs: 1.95 cmLVPWs: 1.52 cmSV(Teich): | | 46.21 mlRA Major: 5.20 cmRVIDd: 2.39 cmLVEF MOD A2C: 72.89 %SV MOD A2C: 31.98 | | mlLVEF MOD A4C: 70.28 %SV MOD A4C: 50.41 mlEF Biplane: 73.23 %LVEDV MOD BP: | | 59.78 mlLVESV MOD BP: 16.00 mlLVEDV MOD A2C: 43.87 mlLVLd A2C: 7.31 cmLVEDV MOD | | A4C: 71.72 mlLVLd A4C: 8.52 cmLVESV MOD A2C: 11.89 mlLVLs A2C: 4.92 cmLVESV MOD | | A4C: 21.30 mlLVLs A4C: 5.85 cmCO Biplane: 4.03 l/minHR: 92.21 BPMR-R: 650.64 | | msLAESV(A-L): 55.85 mlLAESV Index (A-L): 30.86 ml/m2LAAs A2C: 19.22 [id number] A-L | | A2C: 57.80 mlLALs A2C: 5.42 cmLAAs A4C: 17.50 [id number] A-L A4C: 50.87 mlLALs | | A4C: 5.11 cmAo Diam: 3.13 cmAV Cusp: 2.23 cmLA Diam: 3.91 cmLA/Ao: 1.25%FS: | | 46.66 %EDV(Teich): 62.79 mlEF(Teich): 78.73 %ESV(Teich): 13.35 mlIVSd: 1.07 | | cmIVSs: 1.22 cmLVIDd: 3.82 cmLVIDs: 2.03 cmLVPWd: 0.96 cmLVPWs: 1.98 | | cmSV(Teich): 49.44 mlD-E Excursion: 1.86 cmE-F Ford: 0.06 m/sEPSS: 0.06 cmHR: | | 85.89 BPMAV maxP.40 mmHgAV meanP.55 mmHgAV Vmax: 1.52 m/Hong Vmean: 1.13 | | m/Hong VTI: 30.35 cmAVA Vmax: 3.21 cm2AVA (VTI): 2.84 [id number] Dopp: 4.07 | | [id number]/[id number] Dopp: 7.37 l/minHR: 85.42 BPMLVOT maxP.28 mmHgLVOT meanP.96 | | mmHgLVSI Dopp: 47.68 ml/m2LVSV Dopp: 86.31 mlLVOT Vmax: 1.43 m/sLVOT Vmean: 0.94 | | m/sLVOT VTI: 25.41 cmMCO: 406.65 msMV A Del: 0.78 m/sMV DecT: 275.72 msMV E | | Del: 0.70 m/sMV E/A Ratio: 0.90MV PHT: 74.92 msMVA By PHT: 2.93 cm2MV A Dur: | | 107.20 msMV maxP.45 mmHgMV meanP.22 mmHgMV Vmax: 0.78 m/sMV Vmean: 0.52 | | m/sMV VTI: 16.81 cmMVA (VTI): 5.13 fo0Fniige e': 0.09 m/sSeptal E/e': | | 7.69Lateral e': 0.14 m/sLateral E/e': 4.88P Vein A: 0.39 m/sP Vein A Dur: 77.63 | | msP Vein D: 0.38 m/sP Vein S/D Ratio: 1.52P Vein S: 0.58 m/sHR: 82.80 BPMPV | | maxP.97 mmHgPV meanP.82 mmHgPV Vmax: 1.22 m/sPV Vmean: 0.79 m/sPV VTI: | | 22.92 cmTR maxP.87 mmHgTR Vmax: 2.73 m/sTV A Del: 0.55 m/sTV Dec Ford: | | 3.56 m/s2TV Dec Time: 146.24 msTV E Del: 0.52 m/sTV E/A Ratio: 0.94 Business Planning Director: | | PRIYAAuthenticated by: Ronny Tapia Date/Time: 04-25-2011 18:49:35 | | | |MEASUREMENTS | | | |IVC: 1.26 cm | |LA Major: 5.02 cm | |EDV(Teich): 58.28 ml | |IVSd: 1.10 cm | |LVIDd: 3.70 cm | |LVPWd: 1.03 cm | |LVOT Diam: 2.08 cm | |%FS: 47.12 % | |EF(Teich): 79.29 % | |ESV(Teich): 12.06 ml | |IVSs: 1.46 cm | |LVIDs: 1.95 cm | |LVPWs: 1.52 cm | |SV(Teich): 46.21 ml | |RA Major: 5.20 cm | |RVIDd: 2.39 cm | |LVEF MOD A2C: 72.89 % | |SV MOD A2C: 31.98 ml | |LVEF MOD A4C: 70.28 % | |SV MOD A4C: 50.41 ml | |EF Biplane: 73.23 % | |LVEDV MOD BP: 59.78 ml | |LVESV MOD BP: 16.00 ml | |LVEDV MOD A2C: 43.87 ml | |LVLd A2C: 7.31 cm | |LVEDV MOD A4C: 71.72 ml | |LVLd A4C: 8.52 cm | |LVESV MOD A2C: 11.89 ml | |LVLs A2C: 4.92 cm | |LVESV MOD A4C: 21.30 ml | |LVLs A4C: 5.85 cm | |CO Biplane: 4.03 l/min | |HR: 92.21 BPM | |R-R: 650.64 ms | |LAESV(A-L): 55.85 ml | |LAESV Index (A-L): 30.86 ml/m2 | |LAAs A2C: 19.22 cm2 | |LAESV A-L A2C: 57.80 ml | |LALs A2C: 5.42 cm | |LAAs A4C: 17.50 cm2 | |LAESV A-L A4C: 50.87 ml | |LALs A4C: 5.11 cm | |Ao Diam: 3.13 cm | |AV Cusp: 2.23 cm | |LA Diam: 3.91 cm | |LA/Ao: 1.25 | |%FS: 46.66 % | |EDV(Teich): 62.79 ml | |EF(Teich): 78.73 % | |ESV(Teich): 13.35 ml | |IVSd: 1.07 cm | |IVSs: 1.22 cm | |LVIDd: 3.82 cm | |LVIDs: 2.03 cm | |LVPWd: 0.96 cm | |LVPWs: 1.98 cm | |SV(Teich): 49.44 ml | |D-E Excursion: 1.86 cm | |E-F Ford: 0.06 m/s | |EPSS: 0.06 cm | |HR: 85.89 BPM | |AV maxP.40 mmHg | |AV meanP.55 mmHg | |AV Vmax: 1.52 m/s | |AV Vmean: 1.13 m/s | |AV VTI: 30.35 cm | |TRAVIS Vmax: 3.21 cm2 | |TRAVIS (VTI): 2.84 cm2 | |LVCI Dopp: 4.07 l/minm2 | |LVCO Dopp: 7.37 l/min | |HR: 85.42 BPM | |LVOT maxP.28 mmHg | |LVOT meanP.96 mmHg | |LVSI Dopp: 47.68 ml/m2 | |LVSV Dopp: 86.31 ml | |LVOT Vmax: 1.43 m/s | |LVOT Vmean: 0.94 m/s | |LVOT VTI: 25.41 cm | |MCO: 406.65 ms | |MV A Del: 0.78 m/s | |MV DecT: 275.72 ms | |MV E Del: 0.70 m/s | |MV E/A Ratio: 0.90 | |MV PHT: 74.92 ms | |MVA By PHT: 2.93 cm2 | |MV A Dur: 107.20 ms | |MV maxP.45 mmHg | |MV meanP.22 mmHg | |MV Vmax: 0.78 m/s | |MV Vmean: 0.52 m/s | |MV VTI: 16.81 cm | |MVA (VTI): 5.13 cm2 | |Septal e': 0.09 m/s | |Septal E/e': 7.69 | |Lateral e': 0.14 m/s | |Lateral E/e': 4.88 | |P Vein A: 0.39 m/s | |P Vein A Dur: 77.63 ms | |P Vein D: 0.38 m/s | |P Vein S/D Ratio: 1.52 | |P Vein S: 0.58 m/s | |HR: 82.80 BPM | |PV maxP.97 mmHg | |PV meanP.82 mmHg | |PV Vmax: 1.22 m/s | |PV Vmean: 0.79 m/s | |PV VTI: 22.92 cm | |TR maxP.87 mmHg | |TR Vmax: 2.73 m/s | |TV A Del: 0.55 m/s | |TV Dec Ford: 3.56 m/s2 | |TV Dec Time: 146.24 ms | |TV E Del: 0.52 m/s | |TV E/A Ratio: 0.94 | | | |Business Planning Director: PRIYA | |Authenticated by: Ronny Black | |Report Date/Time: 04-25-2011 18:49:35 | + + documented in this encounter Visit Diagnoses Not on filedocumented in this encounter"
--- OUTSIDE RECORDS SUMMARY | ~2020-01-22 | XMS | Encounter Summary ---
Demographics + + + | Address | [address] | | | [place] [address] | + + + | Home Phone | | + + + | Preferred Language | Unknown | + + + | Marital Status | | + + + | Episcopalian Affiliation | [id number] | + + + | Race | Unknown | + + + | Ethnic Group | Unknown | + + + Author + + + | Author | [facility] | | | and [place] | + + + | Organization | [facility] | | | and [place] | [...] + | Manuela Badillo | ECON | [address] | | | | | [place] | | | | | [address] | | + + + + + Care Team Providers + +------+ + | Care Abstract Writer Name | Role | Phone | + +------+ + | Andrei Presley PCP | | | MD | | | + +------+ + Encounter Details +--------+ + + + + | Date | Type | Department | Care Team | Description | +--------+ + + + + | 04/25/ | Orders Only | [place] [facility] | Mateo Bolivar, | | | 2010 | | CONVERSION | MD [address] | | | | | INTERFACES [address] | [place] [address] | | | | | [address] [place], [place] | [phone] | | | | | [address] | | | | | | [phone] | | | +--------+ + + + [...] | + +--------+ + + + | XR CHEST 1 VIEW | Routin | 04/25/2011 | | Results for this | | | e | 10:01 AM | | procedure are in the | | | | PDT | | results section. | + +--------+ + + + documented in this encounter Results XR Chest 1 Vw (04/25/2011 10:01 AM PDT) + + | Specimen | + + | | + + + + + | Narrative | Performed At | + + + | [facility] [id number] Ph: | | | Patient Name: KIKE BADILLO Date of : | | | 1950 Medical Record: [id number] Account: [id number] | | | Exam Date/Time: 04/25/2011 09:49 Ordering | | | Physician: MATEO BOLIVAR Order Detail: [id number] Exam Description: | | | XR CHEST 1 VIEW | | | The | | | KIKE BADILLO XR CHEST 1 VIEW 04/25/2011 9:49 AM HISTORY: 60 | | | years. Male. Chest pain TECHNIQUE: AP portable view of the | | | chest 0958 hrs COMPARISON: None FINDINGS: Cardiac size is | | | normal. The lungs are expanded free of infiltrate. There is no | | | pneumo thorax. The coarsening of the interstitial markings and | | | rarification the lung parenchyma are free may suggest some underlying | | | emphysematous change/COPD but no evidence of a superimposed | | | infiltrate, no large bulla, no evidence of pulmonary nodule or mass. | | | No hilar or mediastinal adenopathy. The osseous structures are | | | grossly unremarkable for age degenerative changes of the left | | | shoulder in mild thoracic spondylosis are noted. IMPRESSION: 1. | | | Negative AP portable view of the chest. | | + + + + + | Procedure Note | + + | Tej Rodriguez - 03/08/2019 11:00 AM PDT | | [facility] | | [facility] [address] | | | | | | Patient Name: KIKE BADILLO | | Date of : 1950 | | Medical Record: [id number] | | Account: [id number] | | | | | | Exam Date/Time: 04/25/2011 09:49 | | Ordering Physician: MATEO BOLIVAR | | Order Detail: [id number] | | Exam Description: XR CHEST 1 VIEW | | | | The KIKE BADILLO | | XR CHEST 1 VIEW | | 04/25/2011 9:49 AM | | | | HISTORY: | | 60 years. Male. Chest pain | | | | TECHNIQUE: | | AP portable view of the chest 0958 hrs | | | | COMPARISON: | | None | | | | FINDINGS: | | Cardiac size is normal. The lungs are expanded free of infiltrate. There | | is no pneumo thorax. The coarsening of the interstitial markings and | | rarification the lung parenchyma are free may suggest some underlying | | emphysematous change/COPD but no evidence of a superimposed infiltrate, no | | large bulla, no evidence of pulmonary nodule or mass. No hilar or | | mediastinal adenopathy. The osseous structures are grossly unremarkable | | for age degenerative changes of the left shoulder in mild thoracic | | spondylosis are noted. | | | | IMPRESSION: | | 1. Negative AP portable view of the chest. | | | | | + + documented in this encounter Visit Diagnoses Not on filedocumented in this encounter"
--- OUTSIDE RECORDS SUMMARY | ~2020-01-22 | XMS | Encounter Summary ---
Demographics + + + | Address | [address] | | | [place] [address] | + + + | Home Phone | | + + + | Preferred Language | Unknown | + + + | Marital Status | | + + + | Anabaptist Affiliation | [id number] | + + + | Race | Unknown | + + + | Ethnic Group | Unknown | + + + Author + + + | Author | [facility] | | | and [place] | + + + | Organization | [facility] | | | and [...] + + + + + | Manuela Denny | ECON | [address] | | | | | [place] | | | | | [address] | | + + + + + Care Team Providers + +------+ + | Care Locate Technician Name | Role | Phone | + +------+ + | Andrei Presley PCP | | | MD | | | + +------+ + Reason for Referral Evaluate & Treat (Routine) +--------+ + + + + + | Status | Reason | Specialty | Diagnoses / | Referred By | Referred To | | | | | Procedures | Contact | Contact | +--------+ + + + + + | Closed | Specialty | Sleep | Diagnoses | | [facility] | | | Services | Medicine | ANITA | [place], | Center [address] | | | Required | | (obstructive | Sloane B, | [place] | | | | | sleep | MD [address] | [place], | | | | | apnea) | [address] | [place] [address] | | | | | Procedures | [place], | Phone: | | | | | [place] | [place] [address] | [phone] | | | | | 6/>YRS SLEEP | | Fax: | | | | | 4/> ADDL | | [phone] | | | | | JONO ATTND | | | | | | | NPSG | | | +--------+ + + + + + Diagnostic/Screening (Routine) +--------+--------+ + + + + | Status | Reason | Specialty | Diagnoses / | Referred By | Referred To | | | | | Procedures | Contact | Contact | +--------+--------+ + + + + | Closed | | Radiology | Diagnoses | | [facility] [address] | | | | | Abnormal | [place], | [address] [place] | | | | | chest x-ray | Sloane B, | [place], | | | | | Procedures | MD [address] | [place] [address] | | | | | CT Chest wo | [address] | Phone: | | | | | Contrast | [place], | [phone] | | | | | | [place] [address] | Fax: | | | | | | | [phone] | +--------+--------+ + + + + Reason for Visit + + + | Reason | Comments | + + + | Establish Care | | + + + Evaluate & Treat (Routine) +--------+--------+ + + + + | Status | Reason | Specialty | Diagnoses / | Referred By | Referred To | | | | | Procedures | Contact | Contact | +--------+--------+ + + + + | Closed | | Pulmonary | Diagnoses | Fernandez, | Vaish[place], | | | | Disease / | Chronic | Andrei | Sloane Husain, | | | | Pulmonology | airway | MD Akbar | | | | | | obstruction, | [address] | | | | | | not | [address] | | | | | | elsewhere | [address] | | | | | | classified | [place], | | | | | | Procedures | [place] [address] | | | | | | [place] OFFICE | Phone: | | | | | | OUTPATIENT | [phone] | | | | | | NEW [address] | Fax: | | | | | | MINUTES | [phone] | | | | | | [address] MAINTENANCE SUPERVISOR-DOS | | | | | | | 12-1-14 | | | +--------+--------+ + + + + Encounter Details +--------+---------+ + + + | Date | Type | Department | Care Team | Description | +--------+---------+ + + + | 06/16/ | Office | [facility] [place] | [place], | Abnormal chest x-ray | | 2013 | Visit | PULMONARY [address] | Sloane Husain MD | (Primary Dx); ANITA | | | | [place], | | (obstructive sleep | | | | [place] [address] | | apnea); | | | | [phone] | | Osteoarthritis | +--------+---------+ + + + Social History + + + +--------+ + | Tobacco Use | Types | Packs/Day | Years | Date | | | | | Used | | + + + +--------+ + | Former Smoker | Cigarettes | 1 | 19 | Quit: 11/13/2013 | + + + +--------+ + + + +---------+ + | Alcohol Use | Drinks/Week | oz/Week | Comments | + + +---------+ + | Yes | | 0.0 | 4-6 per day at the | | | | | most, ranges from 0 | | | | | to 4-6 | + + +---------+ + + + + | Sex Assigned at | Date Recorded | | | | + + + | Not on file | | + + + documented as of this encounter Last Filed Vital Signs + + + + + | Vital Sign | Reading | Time Taken | Comments | + + + + + | Blood Pressure | 126/80 | 06/16/2014 2:34 PM | | | | | PST | | + + + + + | Pulse | 87 | 06/16/2014 2:34 PM | | | | | PST | | + + + + + | Temperature | 37 C (98.6 F) | 06/16/2014 2:34 PM | | | | | PST | | + + + + + | Respiratory Rate | - | - | | + + + + + | Oxygen Saturation | 95% | 06/16/2014 2:34 PM | | | | | PST | | + + + + + | Inhaled Oxygen | - | - | | | Concentration | | | | + + + + + | Weight | 76.4 kg (168 lb 6.4 | 06/16/2014 2:34 PM | | | | oz) | PST | | + + + + + | Height | 161.3 cm (5' 3.5") | 06/16/2014 2:34 PM | | | | | PST | | + + + + + | Body Mass Index | 29.36 | 06/16/2014 2:34 PM | | | | | PST | | + + + + + documented in this encounter Patient Instructions Patient Instructions Sloane Tom MD - 06/16/2014 3:46 PM PSTWe will schedule a chest CT to look more at your lung disease. We can do the same day as your follow up or your sleep study. We will see you back after your sleep study. If you need a second sleep study for treatment , we may go ahead and order this to expedite things for your surgery. Instructions for Night-Time Sleep Testing The [facility] is located on the 1st level of the [facility]. Please park in the Cancer Center/Sleep Center Parking Lot located on the [facility] corner of [facility], at [address] Please enter through the glass sliding doors and take the aga vated down to level 1. Bring pajamas, T-shirt and shorts, or nightgown to wear. You may bring your own pillow with you. Do not bring polyester, ginger, nylon or other slick material clothing to wear. Bring a change of clothes and any toiletries for the morning after your sleep study. Each bedroo m is equipped with a full bathroom. If you usually consume caffeine or alcoholic beverages, continue to do so. If you consume alcoholic beverages in the evening, bring them with you. You may drink them prior to your s leep study. Do not drink them before you arrive, especially if you are driving. If you dri nk alcoholic beverages before your sleep study you will not be allowed to leave the Sleep Ce nter until the effects of the alcohol have worn off. Do not take any naps on the day of the test. Continue taking all your medications, unless your doctor has advised you otherwise. Be joan e to bring all medications along with you in original prescription containers. Eat your evening meal before you come to the hospital. Our cafeteria will be closed by the time you arrive. Do not bring valuables with you. We will be attaching many electrodes and sensors to you for the test; however, you are able to get up easily during the night. You will be continuously monitored by video cameras and intercoms during the night. Should you need anything, just start talking and the technolog ists will answer. We will wake you at 6:00 am; however, if you must get up at an earlier time, please let the technologist know. If you have any questions, please give the sleep center a call at . documented in this encounter Progress Notes Sloane Tom MD - 06/16/2014 2:56 PM PSTFormatting of this note might be differe nt from the original. Pulmonary Consult Referring Provider: Andrei Presley* HPI Kike Baldwin is a 64 y.o. male patient of Andrei Presley here today for evalua tion of COPD. He needs clearance for a hip replacement, which will be done in [place]. He notes that he is here because he would like to have a hip replacement. He notes that he has been asked to get clearance for his lung problems and for his von Willebrand's. He denies any significant problems with dyspnea on exertion. He notes that he does wake up at times gasping for air. He thinks that he must forget to stop breathing in his sleep, or b reathe shallowly. It will last for 3-4 hours and he will sit and watch TV. This will occur a bout once a week. This occurs almost always when he takes a muscle relaxant, so he opts not to take these. When he doesn't take these, the episodes happen, but not as severe. He notes that he has a home oximeter, and his has placed it on him when he is asleep a nd his heart rate goes down to 40 bpm, but his oxygen level is always is in the 90s. Currently they are able to walk several miles at their own pace on level ground, when he do es not have hip pain. He notes as long as he takes his time, there is no limit to what he ca n do. One year ago, he feels that they could walk the same distance. He is exercising regul dean, doing yard work, taking care of his children. He does not cough chronically, and does not produce mucous. He has not had hemoptysis rece ntly, but has in the past. He used his ProAir inhaler 2 times in the last year. He used his albuterol nebulizer 2 time s last month. He does snore if he drinks too much according to his . His has never said that he chokes, gasps or chokes in his sleep, only snores on occasion. She has not noticed any recen t coughing or wheezing. She has noticed occasional apneas. In the last six months he has not slept well due to hip pain. He tried the muscle relaxants, but then he had the gasping epis odes at night. He does not like taking them also due to the side effects of sedation. Usuall y he wakes up at night 3-4 times per night, to urinate and from muscle cramps either hip or shoulder. His brother in laws have sleep apnea and have suggested he try treatment for this. He notes that he has had a cardiac work up previously, about 1 year ago. He had a Holter mo nitor done. He does not know if he had an ultrasound of his heart done. Past Medical History Past Medical History Diagnosis Date COPD (chronic obstructive pulmonary disease) (HCC) Chronic pansinusitis Hypertension Lumbar spondylosis Osteoarthritis Von Willebrand's disease (HCC) Abnormal chest x-ray Past Surgical History Past Surgical History Procedure Date Tonsillectomy Inguinal hernia repair Vasectomy Vasectomy reversal Total knee arthroplasty 2002 Right Knee surgery several prior to replacement on right Family History: Family History Problem Relation Age of Onset Alcohol abuse Mother Cancer Father in his hips Other (See Comment) Father bone disease from exposure to coral Cancer Brother brain tumor Heart disease Brother Social History: History Social History Marital Status: Spouse Name: N/A Number of Children: N/A Years of Education: N/A Occupational History Painting Sand blasting Social History Main Topics Smoking status: Former Smoker -- 1.0 packs/day for 19 years Types: Cigarettes Quit date: 11/13/2013 Smokeless tobacco: None Alcohol Use: 0.0 oz/week Comment: 4-6 per day at the most, ranges from 0 to 4-6 Drug Use: No Sexually Active: None Other Topics Concern None Social History Narrative Lives: [place] With: his and 2 daughtersGrew up: [place] Has previously lived i n: [place], [place], [place], [facility], [facility], [place], [place], [place], [place], [place]posure to toxic chemicals: grain dust, sand dust, inhaled pesticides, herbicides, paint epoxy's; he has worn appropria te protection over the yearExposure to asbestos: yesExposure to tuberculosis: no Has had a P PD or Quantiferon before: yes, negativeHas pets at home: dog Has ever owned birds: no, has s craped pigeon poop in his work beforeOther animal exposures: no Allergies: Allergies Allergen Reactions Iodinated Diagnostic Agents Hives and Shortness Of Breath Cefuroxime Joint pain. Medications: Outpatient Encounter Prescriptions as of 06/16/2014 Medication Sig Dispense Refill albuterol (PROAIR HFA) 90 mcg/puff inhaler Inhale 2 puffs into the lungs every 6 hours as needed. albuterol 2.5 mg/3 mL nebulizer solution Take 2.5 mg by nebulization every 6 hours as n eeded. baclofen (LIORESAL) 10 mg tablet Take 10 mg by mouth 3 times daily. ymbjuswkib-hozwkqnrukkzg-cgzcnkcx (FIORICET) per tablet Take 1 tablet by mouth every 4 hours as needed. metoprolol succinate (TOPROL-XL) 50 mg 24 hr tablet Take 50 mg by mouth Daily. oxyCODONE (ROXICODONE) 15 mg immediate release tablet Take 15 mg by mouth every 4 hours as needed. Review of Systems Constitutional: Denies fever, and chills. He has lost 35 pounds in the last 6 months for u nclear reasons. He had a routine colonoscopy, prostate test, etc. He does get night sweats. Sleep: See HPI. Eyes: Denies vision change. His eyes burn quite a bit. ENT: Denies earache, decreased hearing, nosebleeds, sore throat, and hoarseness. Very occa sional tooth problems. He has very occasional nasal congestion. Resp: See HPI. He notes when he coughs, he has a rotted smell come up. CV: Denies chest pain, palpitations, syncope, and peripheral edema. GI: Denies nausea, vomiting, and abdominal pain. He gets heartburn once in a great while. : He notes he has to urinate more often than he used to, and he urinates small amounts. Musculoskeletal: Denies joint pain/stiffness, joint swelling, and muscle cramps. Derm: Denies itching, dryness, and suspicious lesions. Has had skin rashes. Neurologic: Denies seizures, numbness or tingling in hands or feet, and vertigo. Has had he adaches. Psych: Denies depression, anxiety, and suicidal ideation. Endo: Denies cold intolerance, heat intolerance, and unusual weight change. Heme: Denies abnormal bruising, bleeding, and enlarged lymph nodes. Has been diagnosed with von Willebrand's though he denies having bleeding problems with prior surgeries. Allergy: Denies food allergies, allergic rash. Has seasonal allergies, when working in the lay. Objective BP 126/80 | Pulse 87 | Temp 37 C (98.6 F) (Tympanic) | Ht 1.613 m (5' 3.5") | Wt 76.386 kg (168 lb 6.4 oz) | BMI 29.36 kg/m2 | SpO2 95% RA General Appearance: Alert, cooperative, no distress, appears stated age Head: Normocephalic, without obvious abnormality, atraumatic Eyes: PERRL, conjunctiva clear, no scleral icterus, EOM's intact Ears: Normal TM's, external auditory canals, normal acuity Nose: Nares normal, septum midline, mucosa normal Mouth: No oral lesions or exudate Neck: Supple, symmetrical, no adenopathy Lungs: No accessory muscle use, breath sounds are slightly diminished bilaterally, no whe ezes, crackles or rhonchi Chest Wall: No deformity Heart: Regular rate and rhythm, though with an occasional skipped beat, no murmur, rub or gallop Abdomen: Soft, non-tender, non-distended Extremities: No cyanosis, clubbing, or edema Pulses: Radial pulses 2+ and symmetric Skin: Warm and dry Lymph nodes: Cervical and supraclavicular nodes normal Data: Chest x-ray done May 15, 2014 was reviewed and interpreted in clinic today. It shows ev idence of ILD, and reportedly is stable to x-ray from 1 year prior. Pulmonary function tests were performed prior to clinic today and were reviewed and interpr eted in clinic today. They show normal spirometry, normal lung volumes and a moderately red uced diffusion capacity. Echocardiogram was performed on April 25, 2011 and results were reviewed in clinic today. It shows a hyperdynamic LV, grade 1 diastolic dysfunction, and mild pulmonary hypertension. NM stress test was performed on April 26, 2011 and results were reviewed in clinic today. It did not show evidence of ischemia. Labs 05/15/2014: CBC normal BNP 137 Andrei Presley's notes were reviewed in clinic today. Immunization History Administered Date(s) Administered PNEUMOCOCCAL POLYSACCHARIDE 23-VALENT (PPSV23) 06/03/2013 TRIVALENT INFLUENZA, PRESERATIVE FREE (PED/ADOL/ADULT) 06/03/2013 Assessment 1. 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 I told him that based on his PFTs, he is somewhat higher risk for having complications from an orthopedic surgery, but I do no t feel he is excluded from having one. 2. ANITA (obstructive sleep apnea) - I strongly suspect sleep apnea, based on symptoms descri bed above. I discussed risks of untreated sleep apnea at time of surgery, including, but not limited to, increased risk of viviana operative . I recommended that he have a sleep stud y to evaluate for ANITA or CSA prior to having any surgery, and would not recommend surgery pr ior to a sleep study. 3. Osteoarthritis - He notes marked issues with arthritis and feels he needs to have surger y as soon as possible. We discussed doing surgery at a higher level of care, which he is res istant to, and I suggested that the highest level of care he is willing to do would be best. He has not even made a decision as to what surgeon will be doing his surgery as of yet or w here to do the surgery it would seem, so no surgery date is even planned for his hip replace ment. Plan 1.Recommend chest CT scan for further evaluation of probable ILD. 2.Recommend sleep study prior to any surgery, either here or at [facility]. 3.We will see him back after his sleep study. 4. He is at slightly increased risk for complications from surgery based on his lung diseas e and PFTs. I would not recommend surgery until he has a sleep study for further clarificati on. He was advised to call if new pulmonary symptoms were to develop. Return to clinic after sleep study CC: Andrei Presley MD Portions of this report were transcribed using voice recognition software. Every effort wa s made to ensure accuracy; however, inadvertent computerized sheet pile hammer operator errors may be pre sent. documented in t his encounter Procedure Notes [facility]AN [facility] - 06/16/2014 12:00 AM PST 14 1:44 PM PSTONBASE SCAN [facility] - 05/15/2014 12:00 AM PDTAssociated Order(s): IMAGING REPORT - EXTERNAL SCAN NBASE SCAN [facility] - 05/15/2014 12:00 AM PDTAssociated Order(s): LABS - EXTERNAL SCAN documented in this encounter Miscellaneous Notes Miscellaneous - ONBASE SCAN [facility] - 06/16/2014 12:00 AM PSTElectronically signed by [facility], [facility] at 06/22/2014 12:45 PM PSTMiscellaneous - ONBASE SCAN [facility] - 06/03/2014 12:00 AM PSTEle ctronically signed by [facility], [facility] at 06/24/2014 1:44 PM PSTdocumented in this encounter Plan of Treatment + +---------+--------+ + + | Name | Type | Priori | Associated Diagnoses | Order Schedule | | | | ty | | | + +---------+--------+ + + | CT Chest wo Contrast | Imaging | Routin | Abnormal chest | Expected: | | | | e | x-ray | 06/16/2014, Expires: | | | | | | 06/16/2015 | + +---------+--------+ + + + + +--------+ + + | Name | Type | Priori | Associated Diagnoses | Order Schedule | | | | ty | | | + + +--------+ + + | Diagnostic NPSG | Outpatient | Routin | ANITA (obstructive | Ordered: 06/16/2014 | | | Referral | e | sleep apnea) | | + + +--------+ + + documented as of this encounter Procedures + +--------+ + + + | Procedure Name | Priori | Date/Time | Associated Diagnosis | Comments | | | ty | | | | + +--------+ + + + | IMAGING REPORT - | | 05/15/2014 | Abnormal chest | Results for this | | EXTERNAL SCAN | | 12:00 AM | x-ray | procedure are in the | | | | PDT | | results section. | + +--------+ + + + | LABS - EXTERNAL SCAN | | 05/15/2014 | Abnormal chest | | | | | 12:00 AM | x-ray | | | | | PDT | | | + +--------+ + + + documented in this encounter Results IMAGING REPORT - EXTERNAL SCAN (05/15/2014 12:00 AM PDT) + + + | Narrative | Performed At | + + + | Ordered by an | | | unspecified provider. | | + + + + + | Transcriptions | + + | Segundo Ledezma - 05/15/2014 12:00 AM PDT | + + documented in this encounter Visit Diagnoses + + | Diagnosis | + + | Abnormal chest x-ray - Primary Other nonspecific abnormal finding of lung field | + + | ANITA (obstructive sleep apnea) Obstructive sleep apnea (adult) (pediatric) | + + | Osteoarthritis Osteoarthrosis, unspecified whether generalized or localized, | | unspecified site | + + documented in this encounter
--- OUTSIDE RECORDS SUMMARY | ~2020-01-22 | XMS | Encounter Summary ---
Demographics + + + | Address | [address] | | | [place] [address] | + + + | Home Phone | | + + + | Preferred Language | Unknown | + + + | Marital Status | | + + + | Buddhist Affiliation | Unknown | + + + | Race | White | + + + | Ethnic Group | Not or | + + + Author + + + | Author | [facility] | + + + | Organization | [facility] | + + + | Address | Unknown | + + + | Phone | Unavailable | + + + Support + + +---------+ + | Name | Relationship | Address | Phone | + + +---------+ + | Bridgett Persall | ECON | Unknown | | + + +---------+ + Care Team Providers + +------+ + | Care Engineering Inspection Assistant Name | Role | Phone | + +------+ + | Andrei Presley MD | PCP | | + +------+ + Encounter Details +--------+ + + + + | Date | Type | Department | Care Team | Description | +--------+ + + + + | 04/23/ | Hospital | Radiology/Imaging | | | | 2013 | Encounter | Lab at [facility] [address] | | | | | | [facility] | [facility], | | | | | | [address] | | | | | | [place], [place] | | | | | | [address] | | | | | | [phone] | | | +--------+ + + + + Social History + +-------+ +--------+ + | Tobacco Use | Types | Packs/Day | Years | Date | | | | | Used | | + +-------+ +--------+ + | Former Smoker | | | | Quit: 08/16/2013 | + +-------+ +--------+ + + + +---------+ + | Alcohol Use | Drinks/Week | oz/Week | Comments | + + +---------+ + | Not Asked | | | | + + +---------+ + + + + | Sex Assigned at | Date Recorded | | | | + + + | Not on file | | + + + + + + + | Job Start Date | Occupation | Industry | + + + + | Not on file | Not on file | Not on file | + + + + + + + + | Travel History | Travel Start | Travel End | + + + + + + | No recent travel history available. | + + documented as of this encounter Medications at Time of Discharge + + + +---------+--------+ + | Medication | Sig | Dispensed | Refills | Start | End Date | | | | | | Date | | + + + +---------+--------+ + | baclofen 10 mg | Take 10 mg by mouth | | 0 | | | | oral tablet | two times daily. | | | | | + + + +---------+--------+ + | | Take 1 tablet by | | 0 | | | | losartan-hydrochloro | mouth once daily. | | | | | | thiazide 50-12.5 mg | | | | | | | oral tablet | | | | | | + + + +---------+--------+ + | metoprolol | Take 50 mg by mouth | | 0 | | | | succinate 50 mg oral | once daily. | | | | | | tablet extended | | | | | | | release 24 hr | | | | | | + + + +---------+--------+ + | oxyCODONE, | Take 5 mg by mouth | | 0 | | | | immediate release, 5 | every six hours as | | | | | | mg oral tablet | needed. | | | | | + + + +---------+--------+ + documented as of this encounter Plan of Treatment Not on filedocumented as of this encounter Procedures + +--------+ + + + | Procedure Name | Priori | Date/Time | Associated Diagnosis | Comments | | | ty | | | | + +--------+ + + + | X-RAY HIP 2 VIEWS | Routin | 04/23/2014 | Right hip pain | Results for this | | RIGHT W/ PELVIS 1 | e | 10:13 AM | | procedure are in the | | VIEW | | PDT | | results section. | + +--------+ + + + documented in this encounter Results X-RAY HIP 2 VIEWS RIGHT W/ PELVIS 1 VIEW (04/23/2014 10:13 AM PDT) + + + + + + | Component | Value | Ref Range | Performed | Pathologist | | | | | At | Signature | + + + + + + | X-RAY HIP 2 | STUDY: HIP 2 VIEWS RIGHT | | | | | VIEWS | W/ PELVIS 1 VIEW | | | | | RIGHT W/ | 04/23/14 10:13:00 | | | | | PELVIS 1 | HISTORY: Pain. | | | | | VIEW | COMPARISON: 02/18/2014 | | | | | | outside hip MRI | | | | | | FINDINGS:HIPS:There is | | | | | | moderately severe joint | | | | | | space narrowing and | | | | | | sclerosis at the | | | | | | righthip. Mild/moderate | | | | | | narrowing and sclerosis | | | | | | is seen at the left hip. | | | | | | There is nofracture or | | | | | | focal osseous | | | | | | destruction. Alignment | | | | | | is normal. SI joints and | | | | | | pubicsymphysis are | | | | | | maintained. No soft | | | | | | tissue abnormality. | | | | | | KNEES: RIGHT: [place], | | | | | | AP and patellar views | | | | | | demonstrate total knee | | | | | | arthroplastyhardware | | | | | | without evidence of | | | | | | loosening or failure. | | | | | | There is no fracture | | | | | | focalosseous | | | | | | distraction. Alignment | | | | | | is normal. No soft | | | | | | tissue abnormality. | | | | | | LEFT: Severe medial | | | | | | compartment joint space | | | | | | narrowing and | | | | | | mild/moderatetricompartm | | | | | | ental spurring. No | | | | | | fracture or focal | | | | | | osseous destruction. | | | | | | Alignmentis normal. | | | | | | There is a small joint | | | | | | effusion. 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 | | | | | | Moderatedegenerative | | | | | | joint disease the left | | | | | | hip. Right total knee | | | | | | arthroplasty hardware | | | | | | without complication. | | | | | | Left knee severe medial | | | | | | compartment degenerative | | | | | | joint disease | | | | | | andtricompartmental | | | | | | spurring with small | | | | | | joint effusion. | | | | | | Attending Radiologists: | | | | | | FLORENCIO GARCIA MDAuthor: | | | | | | EVE NATHAN MD I | | | | | | have personally viewed | | | | | | this procedure/exam, | | | | | | reviewed this report, | | | | | | and madechanges to it | | | | | | where appropriate. | | | | | | Final/Electronically | | | | | | signed / FLORENCIO GARCIA | | | | | | 04/23/2014 11:56 AM | | | | + + + + + + + + | Specimen | + + | | + + + +---------+ + + | Performing | Address | City/State/Zipcode | Phone Number | | Organization | | | | + +---------+ + + | [facility] | | | | [facility] | | | | + +---------+ + + documented in this encounter Visit Diagnoses + + | Diagnosis | + + | Right hip pain Pain in joint, pelvic region and thigh | + + documented in this encounter"
--- OUTSIDE RECORDS SUMMARY | ~2020-01-22 | XMS | Encounter Summary ---
Demographics + + + | Address | [address] | | | [place] [address] | + + + | Home Phone | | + + + | Preferred Language | Unknown | + + + | Marital Status | | + + + | Worship Affiliation | [phone] | + + + | Race | Unknown | + + + | Ethnic Group | Unknown | + + + Author + + + | Author | [facility] | | | and [place] | + + + | Organization | [facility] | | | and [place] [...] + | Manuela Baldwin | ECON | [address] | | | | | [place] | | | | | [address] | | + + + + + Care Team Providers + +------+ + | Care Manager Commodities Name | Role | Phone | + +------+ + PCP | Unavailable | + +------+ + Encounter Details +--------+ + + + + | Date | Type | Department | Care Team | Description | +--------+ + + + + | 06/08/ | Orders Only | [facility] [place] | [place], | COPD (chronic | | 2013 | | PULMONARY [address] | Sloane Husain MD | obstructive | | | | [place], | | pulmonary disease) | | | | [place] [address] | | ([facility]) (Primary Dx) | | | | [phone] | | | +--------+ + + + [...] Not on filedocumented as of this encounter Results PFT PULMONARY FUNCTION TESTING ORDERS Full PFT ([place] w/BD, lung volumes, diffusion)?: Yes (06/28/2014 9:12 AM PST) + + + | Narrative | Performed At | + + + | Sloane Tom MD 06/28/2014 9:12 PULMONARY | | | FUNCTION TESTING METHOD: Spirometry was obtained pre | | | administration of inhaled bronchodilator only. Lung volumes were | | | obtained by body plethysmography. Diffusion capacity was obtained by | | | single breath method and was not corrected for a measured | | | hemoglobin. ATS standards were met. SPIROMETRY: FVC was normal | | | at 3.75 L or 105% of predicted. FEV1 was normal at 2.90 L or 100% of | | | predicted. FEV1/FVC ratio was normal at 77%. LUNG VOLUMES: Total | | | lung capacity was normal at 5.24 L or 92% of predicted. Residual | | | volume was mildly reduced at 1.49 L or 76% of predicted. RV/TLC | | | ratio was normal at 28% or 84 % of predicted. DIFFUSION CAPACITY: | | | Diffusion capacity was moderately reduced at 15.1 mL/mmHg per minute | | | or 57% of predicted and was not corrected for a measured | | | hemoglobin. IMPRESSION: Spirometry is normal. Lung volume testing is | | | normal. Diffusion capacity is moderately reduced and is not | | | corrected for measured hemoglobin. Electronically signed by: | | | Sloane Tom MD 06/28/2014 9:09 [facility] | | | [facility] CC: Andrei Presley | | + + + + + | Procedure Note | + + | Sloane Tom MD - 06/28/2014 9:09 AM PST PULMONARY FUNCTION TESTING | | METHOD: Spirometry was obtained pre administration of inhaled bronchodilator only. Lung | | volumes were obtained by body plethysmography. Diffusion capacity was obtained by single | | breath method and was not corrected for a measured hemoglobin. ATS standards were met. | | SPIROMETRY: FVC was normal at 3.75 L or 105% of predicted. FEV1 was normal at 2.90 L or | | 100% of predicted. FEV1/FVC ratio was normal at 77%. LUNG VOLUMES: Total lung capacity | | was normal at 5.24 L or 92% of predicted. Residual volume was mildly reduced at 1.49 L | | or 76% of predicted. RV/TLC ratio was normal at 28% or 84 % of predicted. DIFFUSION | | CAPACITY: Diffusion capacity was moderately reduced at 15.1 mL/mmHg per minute or 57% of | | predicted and was not corrected for a measured hemoglobin.IMPRESSION: Spirometry is | | normal. Lung volume testing is normal. Diffusion capacity is moderately reduced and is | | not corrected for measured hemoglobin.Electronically signed by: Sloane Tom | | 06/28/2014 9:09[facility] | |[facility] | | | |CC: Andrei Presley | + + documented in this encounter Visit Diagnoses + + | Diagnosis | + + | COPD (chronic obstructive pulmonary disease) (HCC) - Primary Chronic airway | | obstruction, not elsewhere classified | + + documented in this encounter"
--- OUTSIDE RECORDS SUMMARY | ~2020-01-22 | XMS | Encounter Summary ---
Demographics + + + | Address | [address] | | | [place] [address] | + + + | Home Phone | | + + + | Preferred Language | Unknown | + + + | Marital Status | | + + + | Nondenominational Affiliation | Unknown | + + + | Race | White | + + + | Ethnic Group | Not or | + + + Author + + + | Author | [facility] | + + + | Organization | [facility] | + + + | Address | Unknown | + + + | Phone | Unavailable | + + + Support + + +---------+ + | Name | Relationship | Address | Phone | + + +---------+ + | Bridgett Persall | ECON | Unknown | | + + +---------+ + Care Team Providers + +------+ + | Care Auto Body Man Name | Role | Phone | + +------+ + | Andrei Presley MD | PCP | | + +------+ + Reason for Referral Consult to [place] (Routine) +--------+--------+ + + + + | Status | Reason | Specialty | Diagnoses / | Referred By | Referred To | | | | | Procedures | Contact | Contact | +--------+--------+ + + + + | Closed | | Orthopedics | Diagnoses | Nicolás, | Nicolás, | | | | | OA | Chrystal Ahn, | Chrystal Ahn MD | | | | | (osteoarthri | [address] | | | | | tis) of hip | [address] | Ave | | | | | Procedures | [place] | | | | | REQUEST TO | [address] | [address] | | | | | SURGERY | Phone: | Phone: | | | | | [facility] | [phone] | [phone] | | | | | [place] T[place]IP | Fax: | Fax: | | | | | | [phone] | [phone] | | | | | ARTHROPLASTY | | | +--------+--------+ + + + + Consultation (Routine) +--------+--------+ + + + + | Status | Reason | Specialty | Diagnoses / | Referred By | Referred To | | | | | Procedures | Contact | Contact | +--------+--------+ + + + + | Closed | | Hematology & | Diagnoses | | Phil, | | | | Oncology | Left knee | Snadra, | MD North | | | | | pain | Marlee Husain MD | [address] | | | | | Procedures | [address] | [address] | | | | | CONSULT TO | [facility] | [place], [place] | | | | | HEMATOLOGY / | Hospital | [address] | | | | | ONCOLOGY | Road | Phone: | | | | | | [place], [place] | [phone] | | | | | | [address] | Fax: | | | | | | Phone: | [phone] | | | | | | [phone] | | | | | | | Fax: | | | | | | | [phone] | | +--------+--------+ + + + + Reason for Visit + + + | Reason | Comments | + + + | Hip pain | Right | + + + | Knee pain | left | + + + Intake Referral (Urgent) +--------+--------+ + + + + | Status | Reason | Specialty | Diagnoses / | Referred By | Referred To | | | | | Procedures | Contact | Contact | +--------+--------+ + + + + | Closed | | Orthopedics | Diagnoses | Fernandez, | Nicolás, | | | | | Other and | Andrei Buitrago, | Chrystal Ahn MD | | | | | unspecified | | [address] | | | | | coagulation | [place] | Ave | | | | | defects | FAMILY | [place], [place] | | | | | Primary | MEDICINE | [address] | | | | | localized | [address] | Phone: | | | | | osteoarthros | [address] | [phone] | | | | | is, pelvic | [place], | Fax: | | | | | region and | [place] [address] | [phone] | | | | | thigh | Phone: | | | | | | Possible | [phone] | | | | | | right hip | Fax: | | | | | | replacement, | [phone] | | | | | | risk of Von | | | | | | | | | | | | | | Willebrand's | | | | | | | disease; | | | | | | | may need | | | | | | | referral to | | | | | | | hematology | | | | | | | and | | | | | | | rheumatology | | | +--------+--------+ + + + + Encounter Details +--------+---------+ + + + | Date | Type | Department | Care Team | Description | +--------+---------+ + + + | 04/23/ | Office | Orthopaedics | Chrystal Monzon | OA (osteoarthritis) | | 2013 | Visit | [facility] | MD Anabelle [address] | of hip (Primary Dx); | | | | for Health and | Ave [place], [place] | Right hip pain; | | | | Healing [address] | [address] | Left knee pain | | | | Ave [facility] | [phone] | | | | | Health and Healing, | | | | | | [facility] | | | | | | [place], [place] | | | | | | [address] | | | | | | [phone] | | | +--------+---------+ + + + Social History + +-------+ [...] + + + | Blood Pressure | 126/76 | 04/23/2014 9:55 AM | | | | | PDT | | + + + + + | Pulse | 75 | 04/23/2014 9:55 AM | | | | | PDT | | + + + + + | Temperature | - | - | | + + + + + | Respiratory Rate | - | - | | + + + + + | Oxygen Saturation | - | - | | + + + + + | Inhaled Oxygen | - | - | | | Concentration | | | | + + + + + | Weight | 77.1 kg (170 lb) | 04/23/2014 9:55 AM | | | | | PDT | | + + + + + | Height | 162.6 cm (5' 4") | 04/23/2014 9:55 AM | | | | | PDT | | + + + + + | Body Mass Index | 29.18 | 04/23/2014 9:55 AM | | | | | PDT | | + + + + + documented in this encounter Progress Notes Marlee Flores MD - 04/23/2014 10:01 AM PDT [facility] [place] Department of Orthopaedics and Rehabilitation Division of Adult Reconstruction Decision for Hip Surgery and knee surgery History of Present Illness: Mr. Baldwin is a 63 year old pleasant man with right hip pain for about 5 years. The pain is located in the deep groin crease . The patient describes the pain as constant, achy and harris its his function daily. Radiation of the pain is negative. The patient reports pain at [facility]. He also complains of bilateral knee pain. He has history of right knee replacement 12 y ears ago. His left knee has been bothering him daily. His pain is medial joint line. Additional details include: He has been seen by Dr. Reeder (an orthopaedist) in [place] [facility]. He was scheduled for a right hip replacement but surgery was cancelled secondary to harley mcnulty medical comorbidities. He has a history of von willebrand's disease and was considere d high risk and has been referred to [facility] for secondary evaluation for potential right hip r eplacement. History of mechanical symptoms is negative. History of neurological symptoms is negative. History of constitutional symptoms such as fever, chills, and sweats is negative. History of trauma/previous surgery to the affected extremity is negative History of inflammatory disease is negative. History of other painful conditions is negative. Previous treatments and their efficacy or reason treatment was not attempted: Medications: Patient has tried taking oxycodone for pain. Weight loss: Patient has maintained a healthy body weight, weight loss not indicated. Physical therapy: Patient has had prior physical therapy and symptoms have progressed in spite of good effort. Injections: He has never had any knee or hip injections. Braces, orthotics and/or assistive devices: No appropriate hip bracing of hip degeneratio n. Limitations of activities of daily living from hip degeneration include severe limitation i n ability to walk, climb stairs, shop. Safety concerns: Patient is at risk of falling due to pain, unstable gait and stiffness. Past Medical History: No past medical history on file. Patient denies history of DVT/PE, DM, CAD or other significant cardiopulmonary disease. Past Surgical History: No past surgical history on file. Medications: Current Outpatient Prescriptions Medication baclofen 10 mg oral tablet losartan-hydrochlorothiazide 50-12.5 mg oral tablet metoprolol succinate 50 mg oral tablet extended release 24 hr oxyCODONE, immediate release, 5 mg oral tablet No current facility-administered medications for this visit. Patient denies anticoagulation, immunosuppressants, hormone therapy with the following exce ptions: Allergies: Allergies Allergen Reactions Clarification Needed Angioedema Reaction to Metal "in mouth" Contrast Medium Anaphylaxis and Contact Dermatitis Review of systems: Patient denies fevers, chills, chest pain, shortness of breath, chest pain, leg swelling or recent infection The review is otherwise negative except as noted in HPI. Family History: Patient denies family history of coagulopathies or problems with anesthesia. Family history is otherwise non-contributory Social History: Smoking/tobacco products: Former smoker (1 PPD) Alcohol: drinks occassionally. Illicit drugs: none Occupation: He is on disability for work related knee problems. The pt's medical history, medications, allergies, surgical history, family history, social history, and a complete review of systems are also included on today's patient questionnaire (see Scanned Documents/Media section). This was reviewed and signed by us both today. EXAM: Last Vitals: BP 126/76 | Pulse 75 | Ht 1.626 m (5' 4") | Wt 77.111 kg (170 lb) | BMI 29.17 kg/(m^2) BMI: Body mass index is 29.17 kg/(m^2). General: NAD, alert, affect appropriate. Well-nourished adult. Non Obese. Neck: Supple. Normal motion and strength. No cervical/axillary lymphadenopathy. Spine: Normal gross alignment with no obvious coronal or sagittal plane deformity. Normal motion and strength. CV: Regular rate and rhythm Chest: Breathing non-labored, no signs of respiratory distress. Abd: Soft, ND/NT Pelvis: Level. Leg lengths clinically equal Skin: No lesions noted on bilateral lower extremities. No pedal edema Lower extremity exam: Gait: Antalgic Right: Hip: No tenderness over trochanteric bursa. Mild pain with hip rotation Forward flexion Internal Rotation External Rotation Adduction Abduction ROM 110 10 20 30 30 Right knee- incision well healed Crepitance with flexion extension ROM 0- 110 Left: Hip: No tenderness over trochanteric bursa. No pain with hip rotation Forward flexion Internal Rotation External Rotation Adduction Abduction ROM 110 20 40 30 30 Knee extension 0-130, varus deformity is passively correctable. No laxity with varus/valgus stressing Examination of the remainder of the left lower extremity reveals full pain-free motion with out tenderness, swelling, or crepitus of the knee and ankle. Neurologic: Motor: Bilateral Hip flexion Bilateral Knee Extension Bilateral Ankle Plantarflexion Bilateral EHL Bilateral Ankle Dorsiflexion 5 5 5 5 5 Sensory: Sensation intact to light touch in deep peroneal, superficial peroneal and tibial nerve distributions of foot and grossly in all distributions of leg. Reflexes: Patella and Achilles equal Vascular: Palpable dorsalis pedis and posterior tibial pulses. Capillary refill <2 sec. N o evidence venous varicosities. Imaging: Riky-posterior pelvis with riky-posterior & lateral views of the right hip show: modera te to severe OA of right hip. Xrays of knee show intact knee replacement on right, end stage OA with varus deformity of l eft knee. Impression: 1. Right hip pain with exam and radiographic evidence consistent with severe, end-stage ost eoarthritis. 2. Left knee end stage OA, with varus deformity passively correctible. 3. Right TKA, 13 years ago, recent increase in pain. No radiographic failure 4. 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 Plan: Hip replacement surgery is indicated because this patient has failed thorough trials of con servative management. Given the severity of the patient's condition and debilitating pain, c ontinued nonsurgical management will not result in significant or long-term pain relief and deferral of surgery will only serve increase the risk of falls, deconditioning, and severely limit the patient's daily activities. VTE risk stratification: Thromboembolic risk stratification: Kike Baldwin is at average orthopaedic risk for venous thrombo-embolism after joint replacement, having no additional risk factors. I have described our multimodal VTE prophylaxis approach and emphasized the im portance of compliance. We will need a chest xray for PMC clinic appointment due to patient's COPD. He will return to clinic for PMC, Heme visit, and to see Dr. Monzon for surgical consent. We will also plan for hematology consult for von willebrands evaluation for upcoming surger y. We will plan for knee injection today. Risks and benefits of steroid injection reviewed with patient. The risks include infection , failure, pain, swelling. The patient verbalized understanding and verbal consent was obta ined prior to procedure. The area of injection was prepped with chloroprep and the site of injection was confirmed. The left knee was injected with 2ml of kenalog 40 (80mg) and 4 ml of Marcaine. Injection max wed freely. Good hemostasis was achieved and no complications noted. The patient tolerated the procedure well. Orders Placed This Encounter X-RAY HIP 2 VIEWS RIGHT W/ PELVIS 1 VIEW X-RAY KNEE 4 VIEWS LEFT 3 VIEWS RIGHT ORTHO COMBO baclofen 10 mg oral tablet oxyCODONE, immediate release, 5 mg oral tablet losartan-hydrochlorothiazide 50-12.5 mg oral tablet metoprolol succinate 50 mg oral tablet extended release 24 hr MARLEE FLORES MD I have seen this patient, performed independent history and physical exam, and have reviewe d and edited resident physician's note. I agree with assessment and plan as above. I was present for the entire procedure as described in the note for this encounter. Chrystal Monzon MD Consumer Science Teacher Orthopaedic Surgery Adult Reconstruction documented in this encounter Plan of Treatment + +------+--------+ + + | Name | Type | Priori | Associated Diagnoses | Order Schedule | | | | ty | | | + +------+--------+ + + | 12 LEAD ECG | ECG | Routin | OA | Ordered: 04/23/2014 | | | | e | (osteoarthritis) of | | | | | | hip | | + +------+--------+ + + documented as of this encounter Procedures + +--------+ + + + | Procedure Name | Priori | Date/Time | Associated Diagnosis | Comments | | | ty | | | | + +--------+ + + + | LAB REPORTS | | 04/03/2014 | | Results for this | | | | 12:00 AM | | procedure are in the | | | | PDT | | results section. | + +--------+ + + + | OUTSIDE RADIOLOGY - | | 02/18/2014 | | Results for this | | MRI | | 12:00 AM | | procedure are in the | | | | PDT | | results section. | + +--------+ + + + | OUTSIDE RADIOLOGY - | | 02/26/2013 | | Results for this | | CT | | 12:00 AM | | procedure are in the | | | | PDT | | results section. | + +--------+ + + + documented in this encounter Results X-RAY KNEE 4 VIEWS LEFT 3 VIEWS RIGHT ORTHO COMBO (04/23/2014 10:13 AM PDT) + + + + + + | Component | Value | Ref Range | Performed | Pathologist | | | | | At | Signature | + + + + + + | X-RAY KNEE | STUDY: HIP 2 VIEWS RIGHT | | | | | 4 VIEWS | W/ PELVIS 1 VIEW | | | | | LEFT 3 | 04/23/14 10:13:00 | | | | | VIEWS RIGHT | HISTORY: Pain. | | | | | ORTHO | COMPARISON: 02/18/2014 | | | | | COMBO | outside hip MRI | | | [...] | | | | | KNEES: RIGHT: [place], | | | | | | AP [...] | | + +---------+ + + | [facility] DEPARTMENT OF | | | | | RADIOLOGY | | | | + +---------+ + + X-RAY HIP 2 VIEWS RIGHT W/ PELVIS [...] | | | | | KNEES: RIGHT: [place], | | | | | | AP [...] Radiologists: | | | | | | FLROENCIO GARCIA MDAuthor: | | | | | [...] | | + +---------+ + + | [facility] DEPARTMENT OF | | | | | RADIOLOGY | | | | + +---------+ + + LAB REPORTS (04/03/2014 12:00 AM PDT) + + + | Narrative | Performed At | + + + | | | | | | + + + + + | Procedure Note | + + | Constantin, Faculty - 05/06/2014 2:15 PM PDT | + + + + | Transcriptions | + + | Constantin Faculty - 05/06/2014 2:15 PM PDT | + + OUTSIDE RADIOLOGY - MRI (02/18/2014 12:00 AM PDT) + + + | Narrative | Performed At | + + + | | | | | | + + + + + | Procedure Note | + + | Stacey Killian - 05/06/2014 2:15 PM PDT | + + OUTSIDE RADIOLOGY - CT (02/26/2013 12:00 AM PDT) + + + | Narrative | Performed At | + + + | | | | | | + + + + + | Procedure Note | + + | Stacey Killian - 05/06/2014 2:15 PM PDT | + + documented in this encounter Visit Diagnoses + + | Diagnosis | + + | OA (osteoarthritis) of hip - Primary Osteoarthrosis, unspecified whether generalized | | or localized, pelvic region and thigh | + + | Right hip pain Pain in joint, pelvic region and thigh | + + | Left knee pain Pain in joint, lower leg | + + documented in this encounter Administered Medications + +--------+ +------+------+------+ | Medication Order | MAR | Action | Dose | Rate | Site | | | Action | Date | | | | + +--------+ +------+------+------+ | Bupivacaine 0.5% | Given | 10/9/201 | 2ml | | | | | | 4 | | | | + +--------+ +------+------+------+ +---+---+ | | | +---+---+ + +-------+ +-----+---+---+ | Lidocaine 1% | Given | | 2ml | | | | | | 4 | | | | + +-------+ +-----+---+---+ +---+---+ | | | +---+---+ + +-------+ +------+---+---+ | Triamcinolone Acetonide 40 | Given | | 40mg | | | | Mg/ml | | 4 | | | | + +-------+ +------+---+---+ +---+---+ | | | +---+---+ documented in this encounter
--- OUTSIDE RECORDS SUMMARY | ~2020-01-22 | XMS | Encounter Summary ---
Demographics + + + | Address | [address] | | | [place] [address] | + + + | Home Phone | | + + + | Preferred Language | Unknown | + + + | Marital Status | | + + + | Uatsdin Affiliation | Unknown | + + + | Race | White | + + + | Ethnic Group | Not or | + + + Author + + + | Author | [facility] | + + + | Organization | [facility] | + + + | Address | Unknown | + + + | Phone | Unavailable | + + + Support + + +---------+ + | Name | Relationship | Address | Phone | + + +---------+ + | Bridgett Persall | ECON | Unknown | | + + +---------+ + Care Team Providers + +------+ + | Care Consulting Application Engineer Name | Role | Phone | + +------+ + | Andrei Presley MD | PCP | | + +------+ + Encounter Details +--------+ + + + + | Date | Type | Department | Care Team | Description | +--------+ + + + + | 02/18/ | Document-Sc | UNKNOWN DEPARTMENT | Other, Faculty | | | 2013 | anned | [address] [facility] | [phone] | | | | | [address] | | | | | | [place], [place] | | | | | | [address] | | | +--------+ + + + [...] | + +--------+ + + + | RADIOLOGY | | 02/18/2014 | | Results for this | | | | 12:00 AM | | procedure are in the | | | | PDT | | results section. | + +--------+ + + + documented in this encounter Results RADIOLOGY (02/18/2014 12:00 AM PDT) + + + | Narrative | Performed At | + + + | | | | | | + + + + + | Procedure Note | + + | Other, Faculty - 05/04/2014 10:51 AM PDT | + + documented in this encounter Visit Diagnoses Not on filedocumented in this encounter"
--- OUTSIDE RECORDS SUMMARY | ~2020-01-22 | XMS | Encounter Summary ---
Demographics + + + | Address | [address] | | | [place] [address] | + + + | Home Phone | | + + + | Preferred Language | Unknown | + + + | Marital Status | | + + + | Hinduism Affiliation | [id number] | + + + | Race | Unknown | + + + | Ethnic Group | Unknown | + + + Author + + + | Author | [facility] | | | and [place] | + + + | Organization | [facility] | | | and [place] | + [...] + | Manuela Baldwin | ECON | [address] | | | | | [place] | | | | | [address] | | + + + + + Care Team Providers + +------+ + | Care Card Grader Name | Role | Phone | + +------+ + | Andrei Presley PCP | | | MD | | | + +------+ + Encounter Details +--------+ + + + + | Date | Type | Department | Care Team | Description | +--------+ + + + + | 06/09/ | Abstract | [facility] | [place], | COPD (chronic | | 2013 | | PULMONARY [address] | Sloane Husain MD | obstructive | | | | [place], | | pulmonary disease) | | | | [place] [address] | | (HCC) (Primary Dx) | | | | [phone] | | | +--------+ + + + [...] + + + | Blood Pressure | 137/84 | 06/03/2014 1:36 PM | | | | | PST | | + + + + + | Pulse | 57 | 06/03/2014 1:36 PM | | | | | PST | | + + + + + | Temperature | - | - | | + + + + + | Respiratory Rate | 14 | 06/03/2014 1:36 PM | | | | | PST | | + + + + + | Oxygen Saturation | - | - | | + + + + + | Inhaled Oxygen | - | - | | | Concentration | | | | + + + + + | Weight | 75.3 kg (166 lb) | 06/03/2014 1:36 PM | | | | | PST | | + + + + + | Height | 161.3 cm (5' 3.5") | 06/03/2014 1:36 PM | | | | | PST | | + + + + + | Body Mass Index | 28.94 | 06/03/2014 1:36 PM | | | | | PST | | + + + + + documented in this encounter Plan of Treatment Not on filedocumented as of this encounter Visit Diagnoses + + | Diagnosis | + + | COPD (chronic obstructive pulmonary disease) (HCC) - Primary Chronic airway | | obstruction, not elsewhere classified | + + documented in this encounter
--- OUTSIDE RECORDS SUMMARY | ~2020-01-22 | XMS | Encounter Summary ---
Demographics + + + | Address | [address] | | | [place] [address] | + + + | Home Phone | | + + + | Preferred Language | Unknown | + + + | Marital Status | | + + + | Scientologist Affiliation | Unknown | + + + | Race | White | + + + | Ethnic Group | Not or | + + + Author + + + | Author | [facility] | + + + | Organization | [facility] | + + + | Address | Unknown | + + + | Phone | Unavailable | + + + Support + + +---------+ + | Name | Relationship | Address | Phone | + + +---------+ + | Bridgett Persall | ECON | Unknown | | + + +---------+ + Care Team Providers + +------+ + | Care Slat Basket Maker Machine Name | Role | Phone | + [...] | | | | | Procedures | [place] | | | | | REQUEST TO | [address] | [address] | | | | | SURGERY | Phone: | Phone: | | | | | [facility] | [phone] | [phone] | | | | | [place] | Fax: | Fax: | | | | | | [phone] | [phone] | | | | | ARTHROPLASTY | [...] | | Oncology | Left knee | Sandra, | MD North | | | | | pain | Marlee Husain MD | [address] | | | | | Procedures | [address] | [address] | | | | | CONSULT TO | [facility] | [place], [place] | | | | | HEMATOLOGY / | Hospital | [address] | | | | | ONCOLOGY | Road | Phone: | | | | | | [place], [place] | [phone] | | | | | | [address] | Fax: | | | | | | Phone: | [phone] | | | | | | [phone] | | | | | | | Fax: | | | | | | | [phone] | | +--------+--------+ + + + + [...] | | | defects | FAMILY | [place], [place] | | | | | Primary | MEDICINE | [address] | | | | | localized | [address] | Phone: | | | | | osteoarthros | [address] | [phone] | | | | | is, pelvic | [place], | Fax: | | | | | region and | [place] [address] | [phone] | | | | | thigh | Phone: | | | | | | Possible | [phone] | | | | | | right hip | Fax: | | | | | | replacement, | [phone] | | | | | | risk [...] | 2013 | Visit | [facility] | MD Anabelle [address] | of hip (Primary Dx); | | | | for Health and | Ave [place], [place] | Right hip pain; | | | | Healing [address] | [address] | Left knee pain | | | | Ave [facility] | [phone] | | | | | Health and Healing, | | | | | | [facility] | | | | | | [place], [place] | | | | | | [address] | | | | | | [phone] | | | +--------+---------+ + + + [...] Flores MD - 04/23/2014 10:01 AM PDT [facility] [place] Department of Orthopaedics and Rehabilitation Division of [...] is negative. The patient reports pain at [facility]. He also complains of bilateral knee pain. He has history of right knee replacement 12 y ears ago. His left knee has been bothering him daily. His pain is medial joint line. Additional details include: He has been seen by Dr. Reeder (an orthopaedist) in [place] [facility]. He was scheduled for a right hip replacement but surgery was cancelled secondary to harley mcnulty medical comorbidities. He has a history of von willebrand's disease and was considere d high risk and has been referred to [facility] for secondary evaluation for potential right [...] note for this encounter. Chrystal Monzon MD Locator Specialist Orthopaedic Surgery Adult Reconstruction documented in this [...] | | | | | KNEES: RIGHT: [place], | | | | | | AP [...] | | + +---------+ + + | [facility] DEPARTMENT OF | | | | [...] | | | | | KNEES: RIGHT: [place], | | | | | | AP [...] | | + +---------+ + + | [facility] DEPARTMENT OF | | | | [...]
--- OUTSIDE RECORDS SUMMARY | ~2020-01-22 | XMS | Encounter Summary ---
Demographics + + + | Address | [address] | | | [place] [address] | + + + | Home Phone | | + + + | Preferred Language | Unknown | + + + | Marital Status | | + + + | Episcopal Affiliation | 1041 | + + + | Race | Unknown | + + + | Ethnic Group | Unknown | + + + Author + + + | Author | [facility] | | | and [place] | + + + | Organization | [facility] | | | and [...] + | Manuela Denny | ECON | [address] | | | | | [place] | | | | | [address] | | + + + + + Care Team Providers + +------+ + | Care Core Drill Operator Helper Name | Role | Phone | + +------+ + | Andrei Presley PCP | | | MD | | | + +------+ + Encounter Details +--------+ + + + + | Date | Type | Department | Care Team | Description | +--------+ + + + + | 11/01/ | Orders Only | [facility] | Andrei Presley | | | 2019 | | CONVERSION 888 | MD Akbar [address] | | | | | [place] | [place] | | | | | [facility] | [place] | | | | | [phone] | [address] | | | | | [phone] | [phone] | | | | | | | | +--------+ + + + + Social History + + [...] + +--------+ + + + | ECHO INTERPRETATION | Routin | 11/01/2018 | | Results for this | | OF OUTSIDE FILMS | e | 1:57 PM | | procedure are in the | | | | PDT | | results section. | + +--------+ + + + documented in this encounter Results ECHO Interpretation of Outside Films (11/01/2018 1:57 PM PDT) + + | Specimen | + + | | + + + + + | Impressions | Performed At | + + + | 1. Overall left ventricular systolic function is normal with an EF | | | between 60 - 65 %. 2. The diastolic filling pattern indicates | | | impaired relaxation consistent with mild dysfunction (Grade I). 3. | | | The right ventricular systolic function is mildly impaired. 4. The | | | right atrium is mildly enlarged. 5. There is mild pulmonary | | | hypertension. 6. No significant valvular abnormalities are noted. 7. | | | In comparison to the previous echocardiographic study, done 04/25/11, | | | mild changes are noted, as reported below. | | + + + + + + | Narrative | Performed At | + + + | Patient Name: NATHANIEL BADILLO Date of : 1950 | | | Performing Physician: ALAN DÍAZ MD | | | | | | INDICATIONS Syncope/collapse CONCLUSIONS | | | 1. Overall left ventricular systolic function is normal | | | with an EF between 60 - 65 %. 2. The diastolic filling pattern | | | indicates impaired relaxation consistent with mild dysfunction (Grade | | | I). 3. The right ventricular systolic function is mildly impaired. | | | 4. The right atrium is mildly enlarged. 5. There is mild pulmonary | | | hypertension. 6. No significant valvular abnormalities are noted. 7. | | | In comparison to the previous echocardiographic study, done 04/25/11, | | | mild changes are noted, as reported below. FINDINGS -------- ECG | | | rhythm: Sinus rhythm. Study: A 2-dimensional transthoracic | | | echocardiogram with m-mode, spectral and color flow Doppler, along | | | with LV strain imaging, was perfomed at [facility]. Study: This was a | | | technically adequate study. Left Ventricle: Overall left ventricular | | | systolic function is normal with an EF between 60 - 65%. It was > | | | 70% on the prior study. Left Ventricle: The left ventricle cavity | | | size is normal. Left Ventricle: Left ventricular wall thickness is | | | normal. Left Ventricle: No regional wall motion abnormalities. LV | | | strain imaging was normal in all segments, with an average value of | | | -20.5%. There is a sig Left Ventricle: moid-shaped septum with mild | | | focal hypertrophy of the basal septum. The remaining wall thickness | | | is normal. Left Ventricle: The diastolic filling pattern indicates | | | impaired relaxation consistent with mild dysfunction (Grade I). Right | | | Ventricle: The right ventricle is normal in size. Right Ventricle: | | | The right ventricular systolic function is mildly impaired. RV | | | systolic function was normal on the previous exam. Left Atrium: The | | | left atrium is normal in size. Right Atrium: The right atrium is | | | mildly enlarged, unchanged from the prior study. Aortic Valve: The | | | aortic valve appears to be trileaflet. Aortic Valve: There is no | | | evidence of aortic regurgitation. Aortic Valve: There is no evidence | | | of aortic stenosis. Mitral Valve: There is trace mitral | | | regurgitation. Mitral Valve: No evidence of MVP. Mitral Valve: Mild | | | mitral annular calcification present. Mitral Valve: Mild thickening | | | of the anterior mitral valve leaflet. Tricuspid Valve: The tricuspid | | | valve appears structurally normal. Tricuspid Valve: Mild tricuspid | | | regurgitation is present (TR was not reported on the previous exam). | | | Tricuspid Valve: There is mild pulmonary hypertension. Tricuspid | | | Valve: The right ventricular systolic pressure (pulmonary artery | | | systolic pressure), as measured by Doppler, is 40.31mmHg, slightly | | | increased from the peak RVSP of 35 mm Hg noted on the previous study. | | | Pulmonic Valve: Trace pulmonic regurgitation. Pericardium: There | | | is no pericardial effusion. IVC/Hepatic Veins: The IVC is normal size | | | (1.5-2.5cm) and collapses >50% with sniff, consistent with central | | | venous pressures of 5-10mmHg. Aorta: The aortic root, ascending aorta | | | and aortic arch are normal. Mass: No mass visualized Thrombus: No | | | clot visualized Thrombus: No vegetation visualized. Septum: No ASD | | | observed. Septum: No VSD observed. MEASUREMENTS | | | Ao asc: 3.03 cm Ao Diam: 2.69 cm Ao sinus: 3.[address] | | | junct: 2.67 cm IVC: 1.69 cm LA Major: 5.26 cm EDV(Teich): | | | 79.79 ml IVSd: 1.14 cm LVIDd: 4.22 cm LVPWd: 1.06 cm | | | LVOT Diam: 2.16 cm %FS: 29.23 % EF(Teich): 56.44 % | | | ESV(Teich): 34.75 ml LVIDs: 2.99 cm SV(Teich): 45.04 ml RA | | | Major: 5.29 cm RV Major: 7.83 cm RV Minor: 3.24 cm RV | | | Minor: 2.88 cm LVEF MOD A2C: 59.61 % SV MOD A2C: 50.64 ml | | | LVEF MOD A4C: 69.03 % SV MOD A4C: 59.95 ml EF Biplane: | | | 65.55 % LVEDV MOD BP: 87.98 ml LVESV MOD BP: 30.30 ml LVEDV | | | MOD A2C: 84.94 ml LVLd A2C: 8.07 cm LVEDV MOD A4C: 86.84 ml | | | LVLd A4C: 8.58 cm LVESV MOD A2C: 34.30 ml LVLs A2C: 6.98 | | | cm LVESV MOD A4C: 26.88 ml LVLs A4C: 7.03 cm LAESV(A-L): | | | 55.98 ml LAESV Index (A-L): 31.62 ml/m2 LAAs A2C: 17.68 cm2 | | | LAESV A-L A2C: 50.84 ml LAESV MOD A2C: 49.01 ml LALs A2C: | | | 5.21 cm LAAs A4C: 19.46 cm2 LAESV A-L A4C: 57.26 ml LAESV MOD | | | A4C: 53.79 ml LALs A4C: 5.61 cm RAAs: 17.49 cm2 RAESV | | | A-L: 47.66 ml RAESV MOD: 47.20 ml RALs: 5.45 cm TAPSE: | | | 2.15 cm AV Env.Ti: 310.90 ms AV maxP.01 mmHg AV meanPG: | | | 2.08 mmHg AV Vmax: 1.00 m/s AV Vmean: 0.68 m/s AV VTI: | | | 21.30 cm TRAVIS Vmax: 2.85 cm2 TRAVIS (VTI): 2.86 cm2 AVAI Vmax: | | | 0.00 cm2/m2 AVAI (VTI): 0.00 cm2/m2 LVOT Env.Ti: 310.90 ms | | | LVOT maxP.43 mmHg LVOT meanP.34 mmHg LVSI Dopp: | | | 34.50 ml/m2 LVSV Dopp: 61.07 ml LVOT Vmax: 0.78 m/s LVOT | | | Vmean: 0.53 m/s LVOT VTI: 16.66 cm MV A Del: 0.72 m/s MV | | | Dec Bailey: 3.52 m/s2 MV DecT: 199.18 ms MV E Del: 0.70 m/s | | | MV E/A Ratio: 0.96 E/E' Sept: 15.86 E' Lat: 0.08 m/s E' | | | Sept: 0.04 m/s RAP: 5 mmHg RV S': 0.08 m/s RVSP: 40.30 | | | mmHg TR maxP.30 mmHg TR Vmax: 2.97 m/s Senior Systems Architect: | | | Authenticated by: ALAN DÍAZ MD Report Date/Time: 11-04-2018 | | | 13:14:28 | | + + + + + | Procedure Note | + + | Michael, Rad Conversion - 03/06/2019 1:02 PM PDT Patient Name: Tyree BADILLO of | | : 1950 Performing Physician: ALAN DÍAZ, | | MD INDICATIONS S | | yncope/collapse CONCLUSIONS 1. Overall left ventricular systolic function is | | normal with an EF between 60 - 65 %.2. The diastolic filling pattern indicates impaired | | relaxation consistent with mild dysfunction (Grade I).3. The right ventricular systolic | | function is mildly impaired.4. The right atrium is mildly enlarged.5. There is mild | | pulmonary hypertension. 6. No significant valvular abnormalities are noted. 7. In | | comparison to the previous echocardiographic study, done 04/25/11, mild changes are | | noted, as reported below. FINDINGS--------ECG rhythm: Sinus rhythm.Study: A | | 2-dimensional transthoracic echocardiogram with m-mode, spectral and color flow Doppler, | | along with LV strain imaging, was perfomed at [facility].Study: This was a technically | | adequate study.Left Ventricle: Overall left ventricular systolic function is normal with | | an EF between 60 - 65%. It was > 70% on the prior study.Left Ventricle: The left | | ventricle cavity size is normal.Left Ventricle: Left ventricular wall thickness is | | normal.Left Ventricle: No regional wall motion abnormalities. LV strain imaging was | | normal in all segments, with an average value of -20.5%. There is a sigLeft Ventricle: | | moid-shaped septum with mild focal hypertrophy of the basal septum. The remaining wall | | thickness is normal.Left Ventricle: The diastolic filling pattern indicates impaired | | relaxation consistent with mild dysfunction (Grade I).Right Ventricle: The right | | ventricle is normal in size.Right Ventricle: The right ventricular systolic function is | | mildly impaired. RV systolic function was normal on the previous exam.Left Atrium: The | | left atrium is normal in size.Right Atrium: The right atrium is mildly enlarged, | | unchanged from the prior study.Aortic Valve: The aortic valve appears to be | | trileaflet.Aortic Valve: There is no evidence of aortic regurgitation.Aortic Valve: | | There is no evidence of aortic stenosis.Mitral Valve: There is trace mitral | | regurgitation.Mitral Valve: No evidence of MVP.Mitral Valve: Mild mitral annular | | calcification present.Mitral Valve: Mild thickening of the anterior mitral valve | | leaflet.Tricuspid Valve: The tricuspid valve appears structurally normal.Tricuspid | | Valve: Mild tricuspid regurgitation is present (TR was not reported on the previous | | exam).Tricuspid Valve: There is mild pulmonary hypertension.Tricuspid Valve: The right | | ventricular systolic pressure (pulmonary artery systolic pressure), as measured by | | Doppler, is 40.31mmHg, slightly increased from the peak RVSP of 35 mm Hg noted on the | | previous study.Pulmonic Valve: Trace pulmonic regurgitation.Pericardium: There is no | | pericardial effusion.IVC/Hepatic Veins: The IVC is normal size (1.5-2.5cm) and collapses | | >50% with sniff, consistent with central venous pressures of 5-10mmHg.Aorta: The aortic | | root, ascending aorta and aortic arch are normal.Mass: No mass visualizedThrombus: No | | clot visualizedThrombus: No vegetation visualized.Septum: No ASD observed.Septum: No VSD | | observed. MEASUREMENTS Ao asc: 3.03 cmAo Diam: 2.69 cmAo sinus: 3.24 | | cmAo st junct: 2.67 cmIVC: 1.69 cmLA Major: 5.26 cmEDV(Teich): 79.79 mlIVSd: | | 1.14 cmLVIDd: 4.22 cmLVPWd: 1.06 cmLVOT Diam: 2.16 cm%FS: 29.23 %EF(Teich): | | 56.44 %ESV(Teich): 34.75 mlLVIDs: 2.99 cmSV(Teich): 45.04 mlRA Major: 5.29 cmRV | | Major: 7.83 cmRV Minor: 3.24 cmRV Minor: 2.88 cmLVEF MOD A2C: 59.61 %SV MOD A2C: | | 50.64 mlLVEF MOD A4C: 69.03 %SV MOD A4C: 59.95 mlEF Biplane: 65.55 %LVEDV MOD | | BP: 87.98 mlLVESV MOD BP: 30.30 mlLVEDV MOD A2C: 84.94 mlLVLd A2C: 8.07 cmLVEDV | | MOD A4C: 86.84 mlLVLd A4C: 8.58 cmLVESV MOD A2C: 34.30 mlLVLs A2C: 6.98 cmLVESV | | MOD A4C: 26.88 mlLVLs A4C: 7.03 cmLAESV(A-L): 55.98 mlLAESV Index (A-L): 31.62 | | ml/m2LAAs A2C: 17.68 [id number] A-L A2C: 50.84 mlLAESV MOD A2C: 49.01 mlLALs A2C: | | 5.21 cmLAAs A4C: 19.46 [id number] A-L A4C: 57.26 mlLAESV MOD A4C: 53.79 mlLALs A4C: | | 5.61 cmRAAs: 17.49 [id number] A-L: 47.66 mlRAESV MOD: 47.20 mlRALs: 5.45 | | cmTAPSE: 2.15 cmAV Env.Ti: 310.90 msAV maxP.01 mmHgAV meanP.08 mmHgAV | | Vmax: 1.00 m/Hong Vmean: 0.68 m/Hong VTI: 21.30 cmAVA Vmax: 2.85 cm2AVA (VTI): | | 2.86 [id number] Vmax: 0.00 cm2/m2AVAI (VTI): 0.00 cm2/m2LVOT Env.Ti: 310.90 msLVOT | | maxP.43 mmHgLVOT meanP.34 mmHgLVSI Dopp: 34.50 ml/m2LVSV Dopp: 61.07 | | mlLVOT Vmax: 0.78 m/sLVOT Vmean: 0.53 m/sLVOT VTI: 16.66 cmMV A Del: 0.72 m/sMV | | Dec Bailey: 3.52 m/s2MV DecT: 199.18 msMV E Dle: 0.70 m/sMV E/A Ratio: 0.96E/E' | | Sept: 15.86E' Lat: 0.08 m/sE' Sept: 0.04 m/sRAP: 5 mmHgRV S': 0.08 m/sRVSP: | | 40.30 mmHgTR maxP.30 mmHgTR Vmax: 2.97 m/s Senior Systems Architect:Authenticated by: | | Faye SALDAÑA Date/Time: 11-04-2018 13:14:28 IMPRESSION: 1. Overall left | | ventricular systolic function is normal with an EF between 60 - 65 %.2. The diastolic | | filling pattern indicates impaired relaxation consistent with mild dysfunction (Grade | | I).3. The right ventricular systolic function is mildly impaired.4. The right atrium is | | mildly enlarged.5. There is mild pulmonary hypertension. 6. No significant valvular | | abnormalities are noted. 7. In comparison to the previous echocardiographic study, done | | 04/25/11, mild changes are noted, as reported below. | |IVSd: 1.14 cm | |LVIDd: 4.22 cm | |LVPWd: 1.06 cm | |LVOT Diam: 2.16 cm | |%FS: 29.23 % | |EF(Teich): 56.44 % | |ESV(Teich): 34.75 ml | |LVIDs: 2.99 cm | |SV(Teich): 45.04 ml | |RA Major: 5.29 cm | |RV Major: 7.83 cm | |RV Minor: 3.24 cm | |RV Minor: 2.88 cm | |LVEF MOD A2C: 59.61 % | |SV MOD A2C: 50.64 ml | |LVEF MOD A4C: 69.03 % | |SV MOD A4C: 59.95 ml | |EF Biplane: 65.55 % | |LVEDV MOD BP: 87.98 ml | |LVESV MOD BP: 30.30 ml | |LVEDV MOD A2C: 84.94 ml | |LVLd A2C: 8.07 cm | |LVEDV MOD A4C: 86.84 ml | |LVLd A4C: 8.58 cm | |LVESV MOD A2C: 34.30 ml | |LVLs A2C: 6.98 cm | |LVESV MOD A4C: 26.88 ml | |LVLs A4C: 7.03 cm | |LAESV(A-L): 55.98 ml | |LAESV Index (A-L): 31.62 ml/m2 | |LAAs A2C: 17.68 cm2 | |LAESV A-L A2C: 50.84 ml | |LAESV MOD A2C: 49.01 ml | |LALs A2C: 5.21 cm | |LAAs A4C: 19.46 cm2 | |LAESV A-L A4C: 57.26 ml | |LAESV MOD A4C: 53.79 ml | |LALs A4C: 5.61 cm | |RAAs: 17.49 cm2 | |RAESV A-L: 47.66 ml | |RAESV MOD: 47.20 ml | |RALs: 5.45 cm | |TAPSE: 2.15 cm | |AV Env.Ti: 310.90 ms | |AV maxP.01 mmHg | |AV meanP.08 mmHg | |AV Vmax: 1.00 m/s | |AV Vmean: 0.68 m/s | |AV VTI: 21.30 cm | |TRAVIS Vmax: 2.85 cm2 | |TRAVIS (VTI): 2.86 cm2 | |AVAI Vmax: 0.00 cm2/m2 | |AVAI (VTI): 0.00 cm2/m2 | |LVOT Env.Ti: 310.90 ms | |LVOT maxP.43 mmHg | |LVOT meanP.34 mmHg | |LVSI Dopp: 34.50 ml/m2 | |LVSV Dopp: 61.07 ml | |LVOT Vmax: 0.78 m/s | |LVOT Vmean: 0.53 m/s | |LVOT VTI: 16.66 cm | |MV A Del: 0.72 m/s | |MV Dec Bailey: 3.52 m/s2 | |MV DecT: 199.18 ms | |MV E Del: 0.70 m/s | |MV E/A Ratio: 0.96 | |E/E' Sept: 15.86 | |E' Lat: 0.08 m/s | |E' Sept: 0.04 m/s | |RAP: 5 mmHg | |RV S': 0.08 m/s | |RVSP: 40.30 mmHg | |TR maxP.30 mmHg | |TR Vmax: 2.97 m/s | | | |Senior Systems Architect: | |Authenticated by: ALAN DÍAZ MD | |Report Date/Time: 11-04-2018 13:14:28 | | | |IMPRESSION: | |1. Overall left ventricular systolic function is normal with an EF between 60 - 65 %. | |2. The diastolic filling pattern indicates impaired relaxation consistent with mild dysfunc tion (Grade I). | |3. The right ventricular systolic function is mildly impaired. | |4. The right atrium is mildly enlarged. | |5. There is mild pulmonary hypertension. 6. No significant valvular abnormalities are noted . 7. In comparison to the previous echocardiographic study, done 04/25/11, mild changes are noted, as reported below. | + + documented in this encounter Visit Diagnoses Not on filedocumented in this encounter"
--- OUTSIDE RECORDS SUMMARY | ~2020-01-22 | XMS | Encounter Summary ---
Demographics + + + | Address | [address] | | | [place] [address] | + + + | Home Phone | | + + + | Preferred Language | Unknown | + + + | Marital Status | | + + + | Hinduism Affiliation | 1041 | + + + | Race | Unknown | + + + | Ethnic Group | Unknown | + + + Author + + + | Author | [facility] | | | and [place] | + + + | Organization | [facility] | | [...] + | [place]a Baldwin | ECON | [address] | | | | | [place] | | | | | [address] | | + + + + + Care Team Providers + +------+ + | Care Composer Teaching Artist Name | Role | Phone | + +------+ + | Andrei Presley PCP | | | MD | | | + +------+ + Encounter Details +--------+ + + + + | Date | Type | Department | Care Team | Description | +--------+ + + + + | 06/16/ | Hospital | [facility] | D[place], | COPD (chronic | | 2013 | Encounter | [facility] | Sloane Husain MD | obstructive | | | | FUNCTION [address] | | pulmonary disease) | | | | [place], | | ([facility]) | | | | [place] [address] | | | | | | [phone] | | | +--------+ + + + [...] | + + + +---------+--------+ + | albuterol (PROAIR | Inhale 2 puffs into | | 0 | | | | HFA) 90 mcg/puff | the lungs every 6 | | | | | | inhaler | hours as needed. | | | | | + + + +---------+--------+ + | albuterol 2.5 mg/3 | Take 2.5 mg by | | 0 | | | | mL nebulizer | nebulization every 6 | | | | | | solution | hours as needed. | | | | | + + + +---------+--------+ + | baclofen | Take 10 mg by mouth | | 0 | | | | (LIORESAL) 10 mg | 3 times daily. | | | | | | tablet | | | | | | + + + +---------+--------+ + | | Take 1 tablet by | | 0 | | | | butalbital-acetamino | mouth every 4 hours | | | | | | phen-caffeine | as needed. | | | | | | (FIORICET) per | | | | | | | tablet | | | | | | + + + +---------+--------+ + | metoprolol | Take 50 mg by mouth | | 0 | | | | succinate | Daily. | | | | | | (TOPROL-XL) 50 mg 24 | | | | | | | hr tablet | | | | | | + + + +---------+--------+ + | oxyCODONE | Take 15 mg by mouth | | 0 | | | | (ROXICODONE) 15 mg | every 4 hours as | | | | | | immediate release | needed. | | | | | | tablet | | | | | | + + + +---------+--------+ + documented as of this encounter Procedure Sloane Caba MD - 06/28/2014 9:09 AM PSTAssociated Order(s): PFT PULMONARY FUNCT ION TESTING ORDERSProcedure(s): PFT PULMONARY FUNCTION TESTING ORDERSPre-Procedure Diagnose( s): COPD (chronic obstructive pulmonary disease) (HCC) PULMONARY FUNCTION TESTING METHOD: Spirometry was obtained pre administration of inhaled bronchodilator only. Lung vol umes were obtained by body plethysmography. Diffusion capacity was obtained by single breath method and was not corrected for a measured hemoglobin. ATS standards were met. SPIROMETRY: FVC was normal at 3.75 L or 105% of predicted. FEV1 was normal at 2.90 L or 100 % of predicted. FEV1/FVC ratio was normal at 77%. LUNG VOLUMES: Total lung capacity was normal at 5.24 L or 92% of predicted. Residual volume was mildly reduced at 1.49 L or 76% of predicted. RV/TLC ratio was normal at 28% or 84 % of predicted. DIFFUSION CAPACITY: Diffusion capacity was moderately reduced at 15.1 mL/mmHg per minute or 57% of predicted and was not corrected for a measured hemoglobin. IMPRESSION: Spirometry is normal. Lung volume testing is normal. Diffusion capacity is mode rately reduced and is not corrected for measured hemoglobin. Electronically signed by: Sloane Tom MD 06/28/2014 9:09 [facility] CC: Andrei Presley ICHARD GARCIA [facility] T - 06/16/2014 12:00 AM PSTAssociated Order(s): DIAGNOSTIC REPORT - [facility]Elect[facility] [place] l[facility] signed by Segundo Ledezma at 06/30/2014 9:56 AM PSTdocumented in this encounter Plan of Treatment Not on filedocumented as of this encounter Procedures + +--------+ + + + | Procedure Name | Priori | Date/Time | Associated Diagnosis | Comments | | | ty | | | | + +--------+ + + + | PFT PULMONARY | NADIA | 06/28/2014 | COPD (chronic | Results for this | | FUNCTION TESTING | | 9:12 AM | obstructive | procedure are in the | | ORDERS | | PST | pulmonary disease) | results section. | | | | | (HCC) | | + +--------+ + + + | PFT PULMONARY | NADIA | 06/28/2014 | COPD (chronic | Results for this | | FUNCTION TESTING | | 9:12 AM | obstructive | procedure are in the | | ORDERS | | PST | pulmonary disease) | results section. | | | | | (HCC) | | + +--------+ + + + | PFT PULMONARY | NADIA | 06/28/2014 | COPD (chronic | Results for this | | FUNCTION TESTING | | 9:12 AM | obstructive | procedure are in the | | ORDERS | | PST | pulmonary disease) | results section. | | | | | (HCC) | | + +--------+ + + + | PFT PULMONARY | NADIA | 06/28/2014 | COPD (chronic | Results for this | | FUNCTION TESTING | | 9:12 AM | obstructive | procedure are in the | | ORDERS | | PST | pulmonary disease) | results section. | | | | | ([facility]) | | + +--------+ + + + | DIAGNOSTIC REPORT - | | 06/16/2014 | | | | EXTERNAL SCAN | | 12:00 AM | | | | | | PST | | | + +--------+ + + + documented in this encounter Results PFT PULMONARY FUNCTION TESTING ORDERS Full PFT ([place] w/BD, lung volumes, diffusion)?: Yes (06/28/2014 9:12 [...] | | Sloane Tom MD 06/28/2014 9:09 [facility] | | | [facility] CC: Andrei Presley | | + + [...] corrected for measured hemoglobin.Electronically signed by: Sloane Tom, | | 06/28/2014 9:09[facility] | |[facility] | | | |CC: Andrei Presley | + + documented in this encounter Visit Diagnoses + + | Diagnosis | + + | COPD (chronic obstructive pulmonary disease) (HCC) Chronic airway obstruction, not | | elsewhere classified | + + documented in this encounter"
--- OUTSIDE RECORDS SUMMARY | ~2020-01-22 | XMS | Encounter Summary ---
Demographics + + + | Address | [address] | | | [place] [address] | + + + | Home Phone | | + + + | Preferred Language | Unknown | + + + | Marital Status | | + + + | Restoration Affiliation | Unknown | + + + | Race | White | + + + | Ethnic Group | Not or | + + + Author + + + | Author | [facility] | + + + | Organization | [facility] | + + + | Address | Unknown | + + + | Phone | Unavailable | + + + Support + + +---------+ + | Name | Relationship | Address | Phone | + + +---------+ + | Bridgett Persall | ECON | Unknown | | + + +---------+ + Care Team Providers + +------+ + | Care Industrial Safety And Health Manager Name | Role | Phone | + +------+ + | Andrei Presley MD | PCP | | + +------+ + Encounter Details +--------+ + + + + | Date | Type | Department | Care Team | Description | +--------+ + + + + | 04/23/ | Hospital | Radiology/Imaging | | | | 2013 | Encounter | Lab at [facility] [address] | | | | | | [facility] | | | | [facility], | | | | | | [address] | | | | | | [place], [place] | | | | | | [address] | | | | | | [phone] | | | +--------+ + + + [...] + +--------+ + + + | X-RAY KNEE 4 VIEWS | Routin | 04/23/2014 | Left knee pain | Results for this | | LEFT 3 VIEWS RIGHT | e | 10:13 AM | | procedure are in the | | ORTHO COMBO | | PDT | | results section. [...] | | | | | KNEES: RIGHT: [facility], | | | | | | AP [...] + | Diagnosis | + + | Left knee pain Pain in joint, lower leg | + + documented in this encounter"
--- OUTSIDE RECORDS SUMMARY | ~2020-01-22 | XMS | Encounter Summary ---
Demographics + + + | Address | [address] | | | [place] [address] | + + + | Home Phone | | + + + | Preferred Language | Unknown | + + + | Marital Status | | + + + | Sabianist Affiliation | Unknown | + + + | Race | White | + + + | Ethnic Group | Not or | + + + Author + + + | Author | [facility] | + + + | Organization | [facility] | + + + | Address | Unknown | + + + | Phone | Unavailable | + + + Support + + +---------+ + | Name | Relationship | Address | Phone | + + +---------+ + | Bridgett Persall | ECON | Unknown | | + + +---------+ + Care Team Providers + +------+ + | Care Finishing Supervisor Plastic Sheets Name | Role | Phone | + +------+ + | Andrei Presley MD | PCP | | + +------+ + Encounter Details +--------+ + + + + | Date | Type | Department | Care Team | Description | +--------+ + + + + | 05/05/ | Can Reforming Machine Operator | Orthopaedics at | [facility] | Lung disease, | | 2013 | | Pending Sale To [facility] [address] | MD Anabelle [address] | obstructive (HCC) | | | | [address] | [place], [place] | (Primary Dx) | | | | [address] | [address] | | | | | [place] | [phone] | | | | | [address] | | | | | | [phone] | | | +--------+ + + + [...] + | Diagnosis | + + | Lung disease, obstructive (HCC) - Primary Chronic airway obstruction, not elsewhere | | classified | + + documented in this encounter"
--- OUTSIDE RECORDS SUMMARY | ~2020-01-22 | XMS | Encounter Summary ---
Demographics + + + | Address | [address] | | | [place] [address] | + + + | Home Phone | | + + + | Preferred Language | Unknown | + + + | Marital Status | | + + + | Holiness Affiliation | 1041 | + + + | Race | Unknown | + + + | Ethnic Group | Unknown | + + + Author + + + | Author | [facility] | | | and [place] | + + + | Organization | [facility] | | | and [place] [...] + | Manuela Baldwin | ECON | [address] | | | | | [place] | | | | | [address] | | + + + + + Care Team Providers + +------+ + | Care Phlebotomy Director Name | Role | Phone | + +------+ + | Andrei Presley PCP | | | MD | | | + +------+ + Reason for Visit +--------+--------+ + | Reason | Onset | Comments | | | Date | | +--------+--------+ + | Other | 06/19/ | Pulmonary clearance for hip surgery | | | 2013 | | +--------+--------+ + Encounter Details +--------+ + + + + | Date | Type | Department | Care Team | Description | +--------+ + + + + | 06/19/ | Telephone | [facility] | Vaishali, | Other (Pulmonary | | 2013 | | PULMONARY [address] | Sloane Husain MD | clearance for hip | | | | [place], | | surgery) | | | | [place] [address] | | | | | | [phone] | | | +--------+ + + + [...] + + documented as of this encounter Miscellaneous Notes Telephone Encounter - Stacia Ledezma RN - 06/22/2014 2:01 PM PSTCalled Kike and advise d that the sleep center here is booking out until August 2014. Kike states that he will be talking to his surgeon and will call back. elephone Encounter - Cristina Mccartney RN - 06/19/2014 2:34 PM PSTSp guy with Kike. There was miscommunication when I spoke with him earlier. He now tells me it was the [facility] Sleep [facility] which said they did not have availability until the end of July. I relayed the information from Dr. Tom to the patient. Patient voiced understanding. I tried to reach [facility] today but got voicemail. Please clarify with [facility] on Sunday whether they would be able to see Kike any s ooner because of need for pulmonary clearance for hip surgery. elephone Encounter - Sloane Tom MD - 1 08/20/2013 12:32 PM PSTThe other option is to have here, which was my first preference. I hav e no control over scheduling, but they do prioritize patients who need surgery. I would not feel comfortable with saying that I think he should have surgery before he has a sleep study, but that is a discussion between him and the surgeon. The surgeon he chooses is up to him, not to me. I have told him I think he should consider a higher level of care max Jones for reasons we discussed before. elephone Encounter - Cristina Mccartney RN - 06/19/2014 11:33 AM PSTKike called to let Dr. Tom know the soonest available appointment time for his sleep study is 08/12/14 (at [place]). Kike said he does not want to wait this long to hav e his hip surgery. Could not get through to [facility] at this time to see how far the y are booking out. Please advise. Other Info: Patient requested to have CT performed at [place]. CT has been authorized. I spoke with [place] imaging department and arranged an appointment for him 06/22/14 with a [address] [facility] in time. Patient is to be NPO 4 hour prior to exam. Orders and auth faxed to [place] imaging department. Kike notified of instructions and appointment time for CT. Patient is aware of number to ca ll if he needs to be rescheduled. Patient stated he would like to have his hip surgery in [place] but may be able to have t he surgery sooner [facility]. documented in this encounter Plan of Treatment Not on filedocumented as of this encounter Visit Diagnoses Not on filedocumented in this encounter"
--- OUTSIDE RECORDS SUMMARY | ~2020-01-22 | XMS | Encounter Summary ---
Demographics + + + | Address | [address] | | | [place] [address] | + + + | Home Phone | | + + + | Preferred Language | Unknown | + + + | Marital Status | | + + + | Restoration Affiliation | 1041 | + + + | Race | Unknown | + + + | Ethnic Group | Unknown | + + + Author + + + | Author | [facility] | | | and [place] | + + + | Organization | [facility] | | | and [place] [...] + | Manuela Baldwin | ECON | [address] | | | | | [place] | | | | | [address] | | + + + + + Care Team Providers + +------+ + | Care Medical Billing Instructor Name | Role | Phone | + +------+ + PCP | Unavailable | + +------+ + Encounter Details +--------+ + + + + | Date | Type | Department | Care Team | Description | +--------+ + + + + | 01/27/ | Hospital | [facility] | Nikita [place] | | | 2001 - | Encounter | [facility] | MD Minna Need updated | | | | | SURGICAL [address] | address | | | 01/29/ | | [place] | | | | 2001 | | [address] | | | | | | [phone] | | | +--------+ + + + [...]
--- OUTSIDE RECORDS SUMMARY | ~2020-01-22 | XMS | Encounter Summary ---
Demographics + + + | Address | [address] | | | [place] [address] | + + + | Home Phone | | + + + | Preferred Language | Unknown | + + + | Marital Status | | + + + | Protestant Affiliation | Unknown | + + + [...] Team Providers + +------+ + | Care Movable Bulkhead Installer Name | Role | Phone | + +------+ + | Andrei Presley MD | PCP | | + +------+ + Encounter Details +--------+ + + + + | Date | Type | Department | Care Team | Description | +--------+ + + + + | 04/23/ | Hospital | Radiology/Imaging | | | | 2013 | Encounter | Lab at [facility] [address] | | | | | | [address] [facility] | | | | | | [facility] Healing, | | | | | | [address] | | | | | | [place], [place] | | | | | | [address] | | | | | | [phone] | | | +--------+ + + + [...] | | | | | KNEES: RIGHT: Clinch, | | | | | | AP [...]
--- OUTSIDE RECORDS SUMMARY | ~2020-01-22 | XMS | Encounter Summary ---
Demographics + + + | Address | [address] | | | [place] [address] | + + + | Home Phone | | + + + | Preferred Language | Unknown | + + + | Marital Status | | + + + | Oriental Orthodox Affiliation | 1041 | + + + | Race | Unknown | + + + | Ethnic Group | Unknown | + + + Author + + + | Author | [facility] | | | and [place] | + + + | Organization | [facility] | | | and [...] + | Manuela Baldwin | ECON | [address] | | | | | [place] | | | | | [address] | | + + + + + Care Team Providers + +------+ + | Care Flotation Tank Operator Name | Role | Phone | + +------+ + PCP | Unavailable | + +------+ + Encounter Details +--------+ + + + + | Date | Type | Department | Care Team | Description | +--------+ + + + + | 12/25/ | Hospital | [facility] | Nikita [place] | | | 2001 | Encounter | [facility] | MD Minna Need updated | | | | | GENERIC CONV DEPT | address | | | | | [address] | | | | | | [place] | | | | | | [address] | | | | | | [phone] | | | +--------+ + + + [...]
--- OUTSIDE RECORDS SUMMARY | ~2020-01-22 | XMS | Clinical Summary ---
Demographics + + + | Address | [address] | | | [place] [address] | + + + | Home Phone | | + + + | Preferred Language | Unknown | + + + | Marital Status | | + + + | Mormonism Affiliation | 1041 | + + + | Race | Unknown | + + + | Ethnic Group | Unknown | + + + Author + + + | Author | [facility] | | | and [place] | + + + | Organization | [facility] | | | and [...] + | Manuela Baldwin | ECON | [address] | | | | | [place] | | | | | [address] | | + + + + + Care Team Providers + +------+ + | Care Etl Informatica Developer Name | Role | Phone | + +------+ + | Andrei Presley | PCP | | | MD | | [...] | + + + + + + Medications + + + +---------+------+------+-------+ | Medication | Sig | Dispensed | Refills | Star | End | Statu | | | | | | t | Date | s | | | | | | Date | | | + + + +---------+------+------+-------+ | oxyCODONE | Take 15 mg by mouth | | 0 | | | Activ | | (ROXICODONE) 15 mg | every 4 hours as | | | | | e | | immediate release | needed. | | | | | | | tablet | | | | | | | + + + +---------+------+------+-------+ | metoprolol | Take 50 mg by mouth | | 0 | | | Activ | | succinate | Daily. | | | | | e | | (TOPROL-XL) 50 mg 24 | | | | | | | | hr tablet | | | | | | | + + + +---------+------+------+-------+ | baclofen | Take 10 mg by mouth | | 0 | | | Activ | | (LIORESAL) 10 mg | 3 times daily. | | | | | e | | tablet | | | | | | | + + + +---------+------+------+-------+ | albuterol (PROAIR | Inhale 2 puffs into | | 0 | | | Activ | | HFA) 90 mcg/puff | the lungs every 6 | | | | | e | | inhaler | hours as needed. | | | | | | + + + +---------+------+------+-------+ | | Take 1 tablet by | | 0 | | | Activ | | butalbital-acetamino | mouth every 4 hours | | | | | e | | phen-caffeine | as needed. | | | | | | | (FIORICET) per | | | | | | | | tablet | | | | | | | + + + +---------+------+------+-------+ | albuterol 2.5 mg/3 | Take 2.5 mg by | | 0 | | | Activ | | mL nebulizer | nebulization every 6 | | | | | e | | solution | hours as needed. | | | | | | + + + +---------+------+------+-------+ Active Problems + + + | Problem | Noted Date | + + + | ANITA (obstructive sleep apnea) | 06/16/2014 | + + + | Abnormal chest x-ray | 06/16/2014 | + + + | Von Willebrand's disease | | + + + | Osteoarthritis | | + + + | Lumbar spondylosis | | + + + | Hypertension | | + + + | Chronic pansinusitis | | + + + Immunizations + + + + | Name | Administration Dates | Next Due | + + + [...] | + + + +--------+ + + +---+---+---+ | Smokeless Tobacco: | | | | | Never Used | | | | + +---+---+---+ + + +---------+ + | Alcohol Use | Drinks/Week | oz/Week | Comments | + + +---------+ + | Yes | | 0.0 | very seldom | + + +---------+ + + + + | Sex Assigned at | Date Recorded | | | | + + + | Not on file | | + + + Last Filed Vital Signs + + + + + | Vital Sign | Reading | Time Taken | Comments | + + + + + | Blood Pressure | 159/102 | 06/11/2019 10:10 AM | | | | | PST | | + + + + + | Pulse | 79 | 06/11/2019 10:10 AM | | | | | PST | | + + + + + | Temperature | 37 C (98.6 F) | 06/16/2014 2:34 PM | | | | | PST | | + + + + + | Respiratory Rate | 16 | 06/11/2019 10:10 AM | | | | | PST | | + + + + + | Oxygen Saturation | 95% | 06/11/2019 10:10 AM | | | | | PST | | + + + + + | Inhaled Oxygen | - | - | | | Concentration | | | | + + + + + | Weight | 69.8 kg (153 lb 12.8 | 06/11/2019 10:10 AM | | | | oz) | PST | | + + + + + | Height | 162.6 cm (5' 4") | 06/11/2019 10:10 AM | | | | | PST | | + + + + + | Body Mass Index | 26.4 | 06/11/2019 10:10 AM | | | | | PST | | + + + + + Plan of Treatment + + + + + | Health Maintenance | Due Date | Last | Comments | | | | Done | | + + + + + | Hepatitis C | | | | | Screening | 0 | | | + + + + + | Vaccine: | | | | | Dtap/Tdap/Td (1 - | 9 | | | | Tdap) | | | | + + + + + | Colorectal Cancer | | | | | Screening | 0 | | | | (Colonoscopy) | | | | + + + + + | Vaccine: Zoster (1 | | | | | of 2) | 0 | | | + + + + + | AAA Screening | | | | | | 5 | | | + + + + + | Vaccine: | | 06/03/20 | | | Pneumococcal 65+ (1 | 8 | 13 | | | of 1 - PPSV23) | | | | + + + + + | Adult Annual | | | | | Wellness Visit | 9 | | | + + + + + | Vaccine: Influenza | | 05/28/20 | | | (#1) | 0 | 19, | | | | | 05/26/20 | | | | | 17, | | | | | 06/03/20 | | | | | 13, | | | | | Addition | | | | | al | | | | | history | | | | | exists | | + + + + + Results Not on filefrom Last 3 Months Insurance + +--------+ +--------+ + +--------+ | Payer | Benefi | Subscriber | Effect | Phone | Address | Type | | | t Plan | ID | shabana | | | | | | / | | Dates | | | | | | Group | | | | | | + +--------+ +--------+ + +--------+ | MODA | MODA | [id number] | 03/16/20 | [phone] | [address] | PPO | | | [place] | | 19-Pre | 9 | [phone] | | | | [place] | | sent | | [place], | | | | [place] | | | | [place] [address] | | + +--------+ +--------+ + +--------+ | [employer] | MODA | [id number] | 07/16/19 | | | Medica | | | HEALTH | | 18-Pre | | | re | | | MDCR | | sent | | | | + +--------+ +--------+ + +--------+ | MEDICARE | MEDICA | [id number] | 12/15/19 | [phone] | | Medica | | | RE | | 08-Pre | 5 | | re | | | PART A | | sent | | | | | | AND B | | | | | | + +--------+ +--------+ + +--------+ | HEALTHNET | HEALTH | [id number] | 09/14/19 | [phone] | | Indemn | | | NET | | 13-Pre | 1 | | ity | | | MDCR | | sent | | | | | | SUPPL | | | | | | + +--------+ +--------+ + +--------+ + +--------+ +--------+ + + | Guarantor Name | Accoun | Relation to | Date | Phone | Billing Address | | | t Type | Patient | of | | | | | | | | | | + +--------+ +--------+ + + | Kike Baldwin | Person | Self | [birth year] | | [address] | | | al/Fam | | 1950 | [phone] | [place] [address] | | | tish | | | 9 (Home) | | + +--------+ +--------+ + + | Kike Baldwin | Person | Self | [birth year] | | [address] | | | al/Fam | | 1950 | [phone] | [place] [address] | | | tish | | | 9 (Home) | | + +--------+ +--------+ + + | Kike Baldwin | Third | Self | [birth year] | | [address] | | | Democrat | | 1950 | [phone] | [place] [address] | | | Liabil | | | 9 (Home) | | | | ity | | | | | + +--------+ +--------+ + + Advance Directives + + + + + | Type | Date Recorded | Patient | Explanation | | | | Electric Motor And Generator Assembler | | + + + + + | Power of | | | | | Change Management Facilitator | | | | + + + + + | Advance | 06/16/2014 12:01 | | | | Directive | PM | | | + + + + +
--- OUTSIDE RECORDS SUMMARY | ~2020-01-22 | XMS | Clinical Summary ---
Demographics + + + | Address | [address] | | | [place] [address] | + + + | Home Phone | | + + + | Preferred Language | Unknown | + + + | Marital Status | | + + + | Restoration Affiliation | Unknown | + + + | Race | White | + + + | Ethnic Group | Not or | + + + Author + + + | Author | [facility] | + + + | Organization | [facility] | + + + | Address | Unknown | + + + | Phone | Unavailable | + + + Support + + +---------+ + | Name | Relationship | Address | Phone | + + +---------+ + | Bridgett Persall | ECON | Unknown | | + + +---------+ + Care Team Providers + +------+ + | Care Art Sales Consultant Name | Role | Phone | + +------+ + PCP | Unavailable | + +------+ + Source Comments [facility] is fully live on both [facility] and [facility] InPatient.[facility] Allergies + + + + + + [...] | + + + +---------+------+------+-------+ | baclofen 10 mg | Take 10 mg by mouth | | 0 | | | Activ | | oral tablet | two times daily. | | | | | e | + + + +---------+------+------+-------+ | oxyCODONE, | Take 5 mg by mouth | | 0 | | | Activ | | immediate release, 5 | every six hours as | | | | | e | | mg oral tablet | needed. | | | | | | + + + +---------+------+------+-------+ | | Take 1 tablet by | | 0 | | | Activ | | losartan-hydrochloro [...] | + + + +---------+------+------+-------+ Active Problems Not on file Social History [...] recent travel history available. | + + Last Filed Vital Signs + [...] + + + + + | Pneumococcal | | | | | vaccination (1 of 2 | 5 | | | | - PCV13) | | | | + + + + + | Influenza (Flu) | | | | | vaccination (#1) | 9 | | | + + + + + Results Not on filefrom Last 3 Months Insurance + +--------+ +--------+ + +-------- + | Payer | Benefi | Subscriber | Effect | Phone | Address | Type | | | t Plan | ID | shabana | | | | | | / | | Dates | | | | | | Group | | | | | | + +--------+ +--------+ + +-------- + | MEDICARE | MEDICA | xxxxxxxxxx | 12/15/19 | [phone] | [address] | Medica | | | RE A & | | 08-Pre | 1 | [phone] | re | | | B | | sent | | [place] | | | | | | | | [address] | | + +--------+ +--------+ + +-------- + | HEALTH NET MEDICARE | HEALTH | xxxxxxxxx | | [phone] | [address] | PPO | | SUPPLEMENT | NET | | [phone]-Pr | 1 | [phone] | | | | MEDICA | | esent | | [place], | | | | RE | | | | [place] | | | | [place] | | | | [phone] | | | | MENT | | | | | | + +--------+ +--------+ + +-------- + + +--------+ +--------+ + + | Guarantor Name | Accoun | Relation to | Date | Phone | Billing Address | | | t Type | Patient | of | | | | | | | | | | + +--------+ +--------+ + + | Kike Baldwin | Person | Self | [birth year] | | [address] | | | al/Fam | | 1950 | [phone] | [place] [address] | | | tish | | | 9 (Home) | | + +--------+ +--------+ + +
--- OUTSIDE RECORDS SUMMARY | ~2020-01-22 | XMS | Encounter Summary ---
Demographics + + + | Address | [address] | | | [place] [address] | + + + | Home Phone | | + + + | Preferred Language | Unknown | + + + | Marital Status | | + + + | Baptist Affiliation | Unknown | + + + | Race | White | + + + | Ethnic Group | Not or | + + + Author + + + | Author | [facility] | + + + | Organization | [facility] | + + + | Address | Unknown | + + + | Phone | Unavailable | + + + Support + + +---------+ + | Name | Relationship | Address | Phone | + + +---------+ + | Bridgett Persall | ECON | Unknown | | + + +---------+ + Care Team Providers + +------+ + | Care Tie Man Name | Role | Phone | + +------+ + | Andrei Presley MD | PCP | | + +------+ + Encounter Details +--------+ + + + + | Date | Type | Department | Care Team | Description | +--------+ + + + + | 04/23/ | Hospital | Radiology/Imaging | | | | 2013 | Encounter | Lab at [facility] [address] | | | | | [address] [facility] | | | | | | [facility] and Healing, | | | | | | [address] | | | | | | [place], [place] | | | | | | [address] | | | | | | [phone] | | | +--------+ + + + [...] | | | | | KNEES: RIGHT: [facility], | | | | | | [...]
--- OUTSIDE RECORDS SUMMARY | ~2020-01-22 | XMS | Encounter Summary ---
Demographics + + + | Address | [address] | | | [place] [address] | + + + | Home Phone | | + + + | Preferred Language | Unknown | + + + | Marital Status | | + + + | Jehovah'S Witness Affiliation | 1041 | + + + | Race | Unknown | + + + | Ethnic Group | Unknown | + + + Author + + + | Author | [facility] | | | and [place] | + + + | Organization | [facility] | | | and [place] | [...] + | Manuela Baldwin | ECON | [address] | | | | | [place] | | | | | [address] | | + + + + + Care Team Providers + +------+ + | Care Batch Freezer Name | Role | Phone | + +------+ + PCP | Unavailable | + +------+ + Encounter Details +--------+ + + + + | Date | Type | Department | Care Team | Description | +--------+ + + + + | 02/05/ | Hospital | [facility] | Nikita Morris | | | 2002 | Encounter | [facility] | MD Minna Need updated | | | | | GENERIC CONV DEPT | address | | | | | [address] | | | | | | [place] | | | | | | [address] | | | | | | [phone] | | | +--------+ + + + [...]
--- OUTSIDE RECORDS SUMMARY | ~2020-01-22 | XMS | Encounter Summary ---
Demographics + + + | Address | [address] | | | [place] [address] | + + + | Home Phone | | + + + | Preferred Language | Unknown | + + + | Marital Status | | + + + | Denominational Affiliation | 1041 | + + + | Race | Unknown | + + + | Ethnic Group | Unknown | + + + Author + + + | Author | [facility] | | | and [place] | + + + | Organization | [facility] | | | and [place] | [...] + | Manuela Badillo | ECON | [address] | | | | | [place] | | | | | [address] | | + + + + + Care Team Providers + +------+ + | Care Pl Sql Programmer Name | Role | Phone | + +------+ + | Andrei Presley PCP | | | MD | | | + +------+ + Encounter Details +--------+ + + + + | Date | Type | Department | Care Team | Description | +--------+ + + + + | 04/26/ | Orders Only | [place] [facility] | Lin Pike, | | | 2010 | | CONVERSION | MD [address] | | | | | INTERFACES [address] | [place] [address] | | | | | [address] [place], [place] | [phone] | | | | | [address] | | | | | | [phone] | | | +--------+ + + + [...] | + +--------+ + + + | NM MYOCARDIAL | Routin | 04/26/2011 | | Results for this | | PERFUSION MULT SPECT | e | 10:14 AM | | procedure are in the | | | | PDT | | results section. | + +--------+ + + + documented in this encounter Results NM Myocardial Perfusion Mult SPECT (04/26/2011 10:14 AM PDT) + + | Specimen | + + | | + + + + + | Narrative | Performed At | + + + | [facility] [address] Ph: | | | Patient Name: KIKE BADILLO Date of : | | | 1950 Medical Record: [id number] Account: [id number] | | | Exam Date/Time: 04/26/2011 06:00 Ordering | | | Physician: LIN PIKE Order Detail: [id number] Exam Description: | | | NM MYOCARDIAL GATED S+R | | | KIKE | | | ABY NM MYOCARDIAL GATED S+R 04/26/2011 6:00 AM History: 60 | | | years. Male. Chest pain and shortness of breath. Family history | | | of heart disease. No personal history of heart disease. Technique: | | | A rest examination was performed on 04/26/11 with 10 mCi of | | | technetium Myoview injected intravenously, followed by gated SPECT | | | imaging of the heart in the supine position. The patient then had an | | | treadmill stress examination with intravenous administration of 40 | | | mCi of technetium Myoview, followed by gated SPECT imaging of the | | | heart in the supine and prone positions. The patient achieved a | | | maximal heart rate of 146 bpm, 91% of age-predicted maximum heart | | | rate. LEFT VENTRICULAR PERFUSION: The left ventricle demonstrates | | | uniform uptake of tracer on stress imaging, indicating normal | | | perfusion of the left ventricle. LEFT VENTRICULAR WALL MOTION: | | | There is uniform of motion of the left ventricle, with normal | | | excursion of the left ventricular wall in all axial and longitudinal | | | planes. LEFT VENTRICULAR VOLUMES: The stress end-diastolic | | | volume is 75 ml. The stress end-systolic volume is 23 ml. | | | The stress ejection fraction is 69%. The rest | | | end-diastolic volume is 91 ml. The rest end-systolic | | | volume is 39 ml. The rest ejection fraction is 57%. | | | Conclusions: Normal left ventricular stress and rest perfusion and | | | wall motion. Normal left ventricular volumes and ejection fractions. | | | | | | AM | | + + + + + | Procedure Note | + + | Michael, Rad Conversion - 03/08/2019 11:00 AM PDT | | [facility] | | [facility] [address] | | | | | | Patient Name: KIKE BADILLO | | Date of : 1950 | | Medical Record: [id number] | | Account: [id number] | | | | | | Exam Date/Time: 04/26/2011 06:00 | | Ordering Physician: LIN PIKE | | Order Detail: [id number] | | Exam Description: NM MYOCARDIAL GATED S+R | | | | KIKE BADILLO | | NM MYOCARDIAL GATED S+R | | 04/26/2011 6:00 AM | | | | History: 60 years. Male. Chest pain and shortness of breath. Family | | history of heart disease. No personal history of heart disease. | | | | Technique: A rest examination was performed on 04/26/11 with 10 mCi of | | technetium Myoview injected intravenously, followed by gated SPECT imaging | | of the heart in the supine position. The patient then had an treadmill | | stress examination with intravenous administration of 40 mCi of technetium | | Myoview, followed by gated SPECT imaging of the heart in the supine and | | prone positions. The patient achieved a maximal heart rate of 146 bpm, 91% | | of age-predicted maximum heart rate. | | | | LEFT VENTRICULAR PERFUSION: The left ventricle demonstrates uniform uptake | | of tracer on stress imaging, indicating normal perfusion of the left | | ventricle. | | | | LEFT VENTRICULAR WALL MOTION: There is uniform of motion of the left | | ventricle, with normal excursion of the left ventricular wall in all axial | | and longitudinal planes. | | | | LEFT VENTRICULAR VOLUMES: | | The stress end-diastolic volume is 75 ml. | | The stress end-systolic volume is 23 ml. | | The stress ejection fraction is 69%. | | The rest end-diastolic volume is 91 ml. | | The rest end-systolic volume is 39 ml. | | The rest ejection fraction is 57%. | | | | Conclusions: | | Normal left ventricular stress and rest perfusion and wall motion. | | Normal left ventricular volumes and ejection fractions. | | | | | + + documented in this encounter Visit Diagnoses Not on filedocumented in this encounter"
--- OUTSIDE RECORDS SUMMARY | ~2020-01-22 | XMS | Encounter Summary ---
Demographics + + + | Address | [address] | | | [place] [address] | + + + | Home Phone | | + + + | Preferred Language | Unknown | + + + | Marital Status | | + + + | Restorationism Affiliation | Unknown | + + + | Race | White | + + + | Ethnic Group | Not or | + + + Author + + + | Author | [facility] | + + + | Organization | [facility] | + + + | Address | Unknown | + + + | Phone | Unavailable | + + + Support + + +---------+ + | Name | Relationship | Address | Phone | + + +---------+ + | Bridgett Persall | ECON | Unknown | | + + +---------+ + Care Team Providers + +------+ + | Care Fleet Mechanic Name | Role | Phone | + +------+ + | Andrei Presley MD | PCP | | + +------+ + Encounter Details +--------+ + + + + | Date | Type | Department | Care Team | Description | +--------+ + + + + | 05/05/ | [facility]ue Drier | Orthopaedics at | Chrystal Monzon | Lung disease, | | 2013 | | [facility] [address] | MD Anabelle [address] | obstructive (HCC) | | | | [address] | [place], [place] | (Primary Dx) | | | | [address] | [address] | | | | | [place] | [phone] | | | | | [address] | | | | | | [phone] | | | +--------+ + + + [...]
--- OUTSIDE RECORDS SUMMARY | ~2020-01-22 | XMS | Clinical Summary ---
Demographics + + + | Address | [address] | | | [place] [address] | + + + | Home Phone | | + + + | Preferred Language | Unknown | + + + | Marital Status | | + + + | Baptism Affiliation | Unknown | + + + | Race | White | + + + | Ethnic Group | Not or | + + + Author + + + | Author | [facility] | + + + | Organization | [facility] | + + + | Address | Unknown | + + + | Phone | Unavailable | + + + Support + + +---------+ + | Name | Relationship | Address | Phone | + + +---------+ + | Bridgett Persall | ECON | Unknown | | + + +---------+ + Care Team Providers + +------+ + | Care Principal Biostatistician Name | Role | Phone | + +------+ + PCP | Unavailable | + +------+ + Source Comments MESERET is fully live on both [facility] Ambulatory and [facility] InPatient.[facility] Allergies + + + + + [...] | MEDICA | xxxxxxxxxx | 12/15/19 | [phone] | [address] | Medica | | | RE A & | | 08-Pre | 1 | [address] | re | | | B | | sent | | [place] | | | | | | | | [address] | | + +--------+ +--------+ + +-------- + | HEALTH NET MEDICARE | HEALTH | xxxxxxxxx | | [phone] | [address] | PPO | | SUPPLEMENT | NET | | 019-Pr | 1 | 9030 | | | | MEDICA | | esent | | [place], | | | | RE | | | | [place] | | | | SUPPLE | | | | [phone] | | | | MENT | | [...] Person | Self | [birth year] | [address] | | | al/Fam | | 1950 | [phone] | [place] [address] | | | tish | | | 9 (Home) | | + +--------+ +--------+ + +
--- OUTSIDE RECORDS SUMMARY | ~2020-01-22 | XMS | Encounter Summary ---
Demographics + + + | Address | [address] | | | [place] [address] | + + + | Home Phone | | + + + | Preferred Language | Unknown | + + + | Marital Status | | + + + | Congregational Affiliation | Unknown | + + + | Race | White | + + + | Ethnic Group | Not or | + + + Author + + + | Author | [facility] | + + + | Organization | [facility] | + + + | Address | Unknown | + + + | Phone | Unavailable | + + + Support + + +---------+ + | Name | Relationship | Address | Phone | + + +---------+ + | Bridgett Persall | ECON | Unknown | | + + +---------+ + Care Team Providers + +------+ + | Care Wastewater Project Manager Name | Role | Phone | + +------+ + | Andrei Presley MD | PCP | | + +------+ + Encounter Details +--------+ + + + + | Date | Type | Department | Care Team | Description | +--------+ + + + + | 02/18/ | Document-Sc | UNKNOWN DEPARTMENT | Other, Faculty | | | 2013 | anned | [address] [facility] | [phone] | | | | | [address] | | | | | | [place], [place] | | | | | | [address] | | | +--------+ + + + [...]
--- OUTSIDE RECORDS SUMMARY | ~2020-01-22 | XMS | Encounter Summary ---
Demographics + + + | Address | [address] | | | [place] [address] | + + + | Home Phone | | + + + | Preferred Language | Unknown | + + + | Marital Status | | + + + | Rastafarian Affiliation | 1041 | + + + | Race | Unknown | + + + | Ethnic Group | Unknown | + + + Author + + + | Author | [facility] | | | and [place] | + + + | Organization | [facility] | | | and [place] [...] + | Manuela Baldwin | ECON | [address] | | | | | [place] | | | | | [address] | | + + + + + Care Team Providers + +------+ + | Care Jacquard Lace Weaver Name | Role | Phone | + +------+ + | Andrei Presley | PCP | | | MD | | | + +------+ + Reason for Visit + +--------+ + | Reason | Onset | Comments | | | Date | | + +--------+ + | Follow-up, Office | 07/01/ | | | Visit | 2019 | | + +--------+ + Encounter Details +--------+ + + + + | Date | Type | Department | Care Team | Description | +--------+ + + + + | 07/01/ | Telephone | [facility] | Boom Rizo, | Follow-up, Office | | 2018 | | INTERVENTIONAL | RN | Visit | | | | RADIOLOGY [address] | | | | | [address] | | | | | | [place], [place] | | | | | | [address] | | | | | | [phone] | | | +--------+ + + + [...] this encounter Miscellaneous Notes Telephone Encounter - Boom Rizo RN - 07/14/2019 2:23 PM PSTReferring clinic notif ied of Dr. Ferguson's findings. Referring office will contact the pt. elephone Encounter - Boom Ferguson MD - 07/14/2019 9:58 AM PSTNo compression fracture. No intervention indicated. Electronica lly signed by Boom Ferguson MD at 07/14/2019 9:58 AM PSTTelephone Encounter - Boom Haq RN - 07/03/2019 11:49 AM PSTImages are now in PACS elephone Encounter - Betty Chavira PA - 06/15 10:55 AM PSTClinic visit 10: 55 AM PSTTelephone Encounter - Betty Chavira PA - 07/01/2019 1:59 PM PSTDiscussed with [facility] RN who will request for lumbar MRI be pushed to PACS elephone Encounter - Boom Rizo RN - 2018 9:28 AM PSTINTERVENTIONAL RADIOLOGY REFERRAL Reason for Referral: Low back pain, Radiculopathy, lumbar and cervical region, Intervertebr al disc disorders with radiculopathy, lumbar region, Other intervertebral disc degeneration, lumbar region. Procedure Requested: Consult and treat Referring Physician: MARTI Aguayo Office contact: Imaging: MR & CT in PACS Patient Dx: Low back pain Patient BMI: 26.40 Blood thinners: None Diabetic medications: None Any Red Flags?: [facility] umented in this encounter Plan of Treatment Not on filedocumented as of this encounter Visit Diagnoses Not on filedocumented in this encounter"
--- OUTSIDE RECORDS SUMMARY | ~2020-01-22 | XMS | Encounter Summary ---
Demographics + + + | Address | [address] | | | [place] [address] | + + + | Home Phone | | + + + | Preferred Language | Unknown | + + + | Marital Status | | + + + | Zoroastrianism Affiliation | 1041 | + + + | Race | Unknown | + + + | Ethnic Group | Unknown | + + + Author + + + | Author | [facility] | | | and [place] | + + + | Organization | [facility] | | | and [...] + | Manuela Baldwin | ECON | [address] | | | | | [place] | | | | | [address] | | + + + + + Care Team Providers + +------+ + | Care Rim Roller Setter Name | Role | Phone | + +------+ + | Andrei Presley | PCP | | | MD | | | + +------+ + Reason for Visit +---------+ + | Reason | Comments | +---------+ + | Consult | dizziness | +---------+ + Evaluate & Treat (Routine) +--------+--------+ + + + + | Status | Reason | Specialty | Diagnoses / | Referred By | Referred To | | | | | Procedures | Contact | Contact | +--------+--------+ + + + + | Closed | | Vascular | Diagnoses | Alex, | Ramiro, | | | | Surgery | Dizziness | Boom | Lasha Philip MD | | | | | | RODRIGO [address]z | [address] | | | | | | [address] | [address] | | | | | | [address] | [address] [place] | | | | | | [place], | [place], [place] | | | | | | [place] | [address] Phone: | | | | | | [address] | [phone] | | | | | | Phone: | Fax: | | | | | | [phone] | [phone] | | | | | | Fax: | | | | | | | [phone] | | +--------+--------+ + + + + Encounter Details +--------+---------+ + + + | Date | Type | Department | Care Team | Description | +--------+---------+ + + + | 06/11/ | Office | [facility] | Lasha Rubio MD | Dizziness after | | 2019 | Visit | VASCULAR SURGERY | [address] | extension of neck | | | | [address] | [address] | (Primary Dx) | | | | [place], [place] | [place] [address] | | | | | [address] | [phone] | | | | | [phone] | | | +--------+---------+ + + + [...] + documented in this encounter Progress Notes Lasha Rubio MD - 06/11/2019 9:00 AM PSTFormatting of this note might be different from t he original. [facility] [address] [place] [address] Office: [phone] DATE OF VISIT: 06/11/2019 PATIENT NAME: Kike Baldwin : 1950; AGE: 69 y.o.; Sex:M PHONE NUMBER: ; (Work); ; PHYSICIAN: Lasha Rubio MD PRIMARY CARE / REFERRING PHYSICIAN: Boom Johnson P* / Sabas Agrawal D / [id number] / [place] [address] / REASON FOR EVALUATION / CHIEF COMPLAINT: Evaluation and Treatment of Carotid Arter y Occlusive Disease HISTORY OF PRESENT ILLNESS:Kike Baldwin is a 69 y.o. male patient with history of chronic abhinav k, and neck pain who presents for evaluation of carotid artery disease. Patient was recentl y evaluated for cervical spine stenosis. He states that in the last several months he has h ad persistently worsening neck pain. On one instance when trying to look up he passed out. His found him lying on the ground. He denies any dizzy spells. He states that he get s shocks throughout his body that radiate from his back down through his legs. He has bilat eral upper extremity weakness and pain. The symptoms are exacerbated with neck movement. He states that he is in constant pain. He is not been able to sleep over 2 to 3 hours at nigh t due to pain for the last several months. He has never had vision changes or vision loss. He denies experiencing symptoms where he was unable to move a arm or leg. He states that w ithin the last year he had a carotid duplex ultrasound which per patient did not show anythi ng. He has a history of smoking. He is not currently taking an antiplatelet agent. PAST SURGICAL HISTORY: The patient's has a past surgical history that includes Tonsillecto my; Inguinal hernia repair; Vasectomy; vasectomy reversal; Total knee arthroplasty (2001); a nd knee surgery. PAST MEDICAL HISTORY: The patient has a past medical history of Abnormal chest x-ray, Park Maintenance Technician bowen pansinusitis, COPD (chronic obstructive pulmonary disease) (HCC), Hypertension, Lumbar s pondylosis, Osteoarthritis, and Von Willebrand's disease (HCC). FAMILY HISTORY: The patient's family history includes Alcohol abuse in his mother; Cancer i n his brother and father; Heart disease in his brother; Other (see comment) in his father. CURRENT MEDICATIONS: Current Outpatient Medications Medication Sig Dispense Refill albuterol (PROAIR HFA) 90 mcg/puff inhaler Inhale 2 puffs into the lungs every 6 hours as needed. albuterol 2.5 mg/3 mL nebulizer solution Take 2.5 mg by nebulization every 6 hours as n eeded. baclofen (LIORESAL) 10 mg tablet Take 10 mg by mouth 3 times daily. qpyfyqsnlo-eobxaifvrgdog-bortfkcb (FIORICET) per tablet Take 1 tablet by mouth every 4 hours as needed. metoprolol succinate (TOPROL-XL) 50 mg 24 hr tablet Take 50 mg by mouth Daily. oxyCODONE (ROXICODONE) 15 mg immediate release tablet Take 15 mg by mouth every 4 hours as needed. No current facility-administered medications for this visit. Allergies Allergen Reactions Contrast [Iodinated Diagnostic Agents] Hives and Shortness Of Breath Ceftin [Cefuroxime] Joint pain. SOCIAL HISTORY: reports that he quit smoking about 5 years ago. His smoking use included c igarettes. He has a 19.00 pack-year smoking history. He has never used smokeless tobacco. He reports current alcohol use. He reports that he does not use drugs. REVIEW OF SYSTEMS: 12-point ROS negative, other per HPI VITAL SIGNS: BP (!) 159/102 | Pulse 79 | Resp 16 | Ht 1.626 m (5' 4") | Wt 69.8 kg (153 lb 12.8 oz) | SpO2 95% | BMI 26.40 kg/m PHYSICAL EXAM: Constitutional: Well nourished, no signs of distress HENT: Normocephalic and atraumatic. Cranial nerves II-XI are grossly intact. Lymphadenopathy: no cervical, supraclavicular adenopathy Cardiovascular: regular Pulmonary/Chest: Unlabored at rest Abdominal: non-tender Musculoskeletal: decreased ROM in bilateral upper extremities, 4/5 strength in upper extrem ities equal bilaterally Extremities: No edema Neurological: alert and oriented. VASCULAR: palpable carotid bilaterally, no bruit IMAGINGS: Reviewed CT spine w/o contrast - some calcific changes noted, unable to determine degree of stenosis in non-contrast study. ASSESSMENT & PLAN: Her Juliette is 69-year-old gentleman with chronic lumbar and cervical spine stenosis. He pr esents for evaluation of carotid artery disease. Per patient he had a carotid duplex done r ecently which did not show any significant disease. Unfortunately I do not have access to t his imaging to review at this time. He has not had any stroke/TIA symptoms. His episode of passing out could be related to a vertebral artery issue although less likely. It is reaso nable to evaluate carotid and vertebral arteries, however. I will review his carotid duplex imaging. I will call the patient to discuss further evaluation or treatment pending the re view of the carotid duplex. Patient voiced understanding and is agreeable to the plan movin g forward. Lasha Rubio MD Vascular Surgery Dictation software, [employer], used which may contain error for similar sounding words even af ter review. Personal communication requested for any clarification. Portions of this chart may have been copied from previous notes for continuity of care purp ose documented in this encou nter Plan of Treatment Not on filedocumented as of this encounter Visit Diagnoses + + | Diagnosis | + + | Dizziness after extension of neck - Primary | + + documented in this encounter
--- OUTSIDE RECORDS SUMMARY | ~2020-01-22 | XMS | Encounter Summary ---
Demographics + + + | Address | [address] | | | [place] [address] | + + + | Home Phone | | + + + | Preferred Language | Unknown | + + + | Marital Status | | + + + | Uatsdin Affiliation | 1041 | + + + | Race | Unknown | + + + | Ethnic Group | Unknown | + + + Author + + + | Author | [facility] | | | and [place] | + + + | Organization | [facility] | | | and [...] + | Manuela Baldwin | ECON | [address] | | | | | [place] | | | | | [address] | | + + + + + Care Team Providers + +------+ + | Care Diesel Locomotive Firer Name | Role | Phone | + +------+ + | Andrei Presley | PCP | | | MD | | | + +------+ + Reason for Visit + +--------+ + | Reason | Onset | Comments | | | Date | | + +--------+ + | Shortness of Breath | 06/29/ | and stiff neck | | | 2013 | | + +--------+ + Encounter Details +--------+ + + + + | Date | Type | Department | Care Team | Description | +--------+ + + + + | 06/29/ | Telephone | [facility] [place] | Vaishali, | Shortness of Breath | | 2013 | | PULMONARY [address] | Sloane Husain MD | (and stiff neck) | | | | [place], | | | | | | [place] [address] | | | | | | [phone] | | | +--------+ + + + [...] this encounter Miscellaneous Notes Telephone Encounter - Sloane Tom MD - 06/29/2014 5:09 PM PSTI look forward to seeing him back to review everything once he has his sleep study. elephone Encounter - Tata Crockett R N - 06/29/2014 4:40 PM PSTManuela had called to inform us that she took Kike to the ED at [facility]. Call was returned and Kike was spoken to. He stated that his neck and shoulder got to hurting so bad and he couldn't breath that Manuela took him to the ED. He stated ashutosh t they found his prior chest CT and also took another and compared the two. They told him t hat there were definite changes in the two, that he had "inflammation". He was started on A zithromycin 600 mg 2 times per day for 14 days, lorazepam 1 mg, 1/2 to 1 tab every 8 hours P RN, robaxin 500 mg 4 times daily for 28 days. He stated he has not scheduled the sleep stud y yet. I asked if he would call us when he schedules that so we could put it in our file. The CT from [facility] ED visit today was requested and prior CT was requested earlier to day. elephone Encoun ter - Tata Crockett RN - 06/29/2014 10:28 AM PSTDr. Presley's ofc was called and the CT and cardiac work up were requested. They had the CT and will send that to us but the "card iac workup" was a holter monitor done through Dr. Ignacio Dyer. His office was called and ashutosh t information was requested; they will send it to us. Left msg for Kike to call back to check if sleep study is scheduled yet and recommend he co ntact his PCP for further acute issues. elephone Encounter - Sloane Tom MD - 06/29/2014 9:51 AM PSTI do think that Mr. Baldwin needs to fin pretty his work up as stated previously. He needs to schedule a sleep study and a chest CT to h elp clarify his disease. In addition, can we get records of prior cardiac work up? Reportedl y done 1 year ago. Save these for his follow up appointment, which should be after his sleep study. In the meantime, I recommend he seek care with his PCP for any acute issues until we can co mplete his work up, which he has refused to complete (he refused to schedule his sleep study in [place] or here is my understanding). elephone Demetris muro - Tata Crockett RN - 06/29/2014 9:18 AM PSTAlan called and stated that Fri he sta rted having a stiff neck and then he started having left lung pain and shortness of breath. He went to the ED yesterday AM and they gave him pain meds and sent him home but he states he is severly short of breath. He has used both his ProAir inhaler and the nebulizer and ne ither helps at all. When it first started the shortness of breath came and went but now it is continuous. He has a dry cough and in the morning it is productive of brown sputum which turns to clear as the day progresses. He denies any fever. documented in this encounter Plan of Treatment Not on filedocumented as of this encounter Visit Diagnoses Not on filedocumented in this encounter
--- OUTSIDE RECORDS SUMMARY | ~2020-01-22 | XMS | Encounter Summary ---
Demographics + + + | Address | [address] | | | [place] [address] | + + + | Home Phone | | + + + | Preferred Language | Unknown | + + + | Marital Status | | + + + | Christian Affiliation | 1041 | + + + | Race | Unknown | + + + | Ethnic Group | Unknown | + + + Author + + + | Author | [facility] | | | and [place] | + + + | Organization | [facility] | | | and [place] [...] + | Manuela Baldwin | ECON | [address] | | | | | [place] | | | | | [address] | | + + + + + Care Team Providers + +------+ + | Care Switchgear Repairer Name | Role | Phone | + +------+ + | Andrei Presley | PCP | | | MD | | | + +------+ + Reason for Visit + +--------+ + | Reason | Onset | Comments | | | Date | | + +--------+ + | Referral | 06/02/ | | | | 2019 | | + +--------+ + Encounter Details +--------+ + + + + | Date | Type | Department | Care Team | Description | +--------+ + + + + | 06/02/ | Telephone | [facility] | Lasha Rubio MD | Referral | | 2019 | | VASCULAR SURGERY | [address] | | | | | [address] | [facility] | | | | | [place], [place] | [place] [address] | | | | | [address] | [phone] | | | | | [phone] | | | +--------+ + + + [...] this encounter Miscellaneous Notes Telephone Encounter - Delia Gonsales, Global Supply Chain Director - 06/03/2019 11:04 AM PSTSpoke with pt about referral to see Dr. Rubio, pt stated he would call us back after he gets CTA done . eleph one Encounter - Nasima Crews - 06/03/2019 10:12 AM PSTAlan, is returning call for Refe rral and would like a call back. Additional Call Details: Retuning call to schedule from referral. Call patient back at the home number listed on the chart. elephone Encounter - Betty Barry - 06/03/2019 8:06 AM PSTAlan, is returning call for Referral and would like a call back. Additional Call Details: returning call and requesting to schedule from referral. elephone Deborah Cintron - 06/02/2019 4:30 PM PSTAlan, is calling regarding Referral and would like a call back. Additional Call Details: Returning call to schedule from referral. Please call back at the home number. If this is a symptom based call, was patient offered triage? Not Applicable If this is a symptom based call and you were unable to immediately transfer the call to a bailey navarro dental assisting instructor was caller made aware that if at any time he feels it is an emergency they dolly uld call 911 or go to the nearest emergency room? not applicable documented in this encounter Plan of Treatment Not on filedocumented as of this encounter Visit Diagnoses Not on filedocumented in this encounter"
--- OUTSIDE RECORDS SUMMARY | ~2020-01-22 | XMS | Encounter Summary ---
Demographics + + + | Address | [address] | | | [place] [address] | + + + | Home Phone | | + + + | Preferred Language | Unknown | + + + | Marital Status | | + + + | Mandaeism Affiliation | 1041 | + + + | Race | Unknown | + + + | Ethnic Group | Unknown | + + + Author + + + | Author | [facility] | | | and [place] | + + + | Organization | [facility] | | | and [place] | [...] + | Manuela Baldwin | ECON | [address] | | | | | [place] | | | | | [address] | | + + + + + Care Team Providers + +------+ + | Care Auto Locator Name | Role | Phone | + +------+ + PCP | Unavailable | + +------+ + Encounter Details +--------+ + + + + | Date | Type | Department | Care Team | Description | +--------+ + + + + | 07/06/ | Hospital | [facility] | Finesse Alvarado, | | | 2002 | Encounter | [facility] | [place] [address] | | | | | LABORAT[address] [place], [place] | | | | | [address] [place], [place] | [address] | | | | | [address] | [phone] | | | | | [phone] | | | +--------+ + + + [...]
--- OUTSIDE RECORDS SUMMARY | ~2020-01-22 | XMS | Encounter Summary ---
Demographics + + + | Address | [address] | | | [place] [address] | + + + | Home Phone | | + + + | Preferred Language | Unknown | + + + | Marital Status | | + + + | Presybeterian Affiliation | 1041 | + + + | Race | Unknown | + + + | Ethnic Group | Unknown | + + + Author + + + | Author | [facility] | | | and [place] | + + + | Organization | [facility] | | | and [...] + | Manuela Denny | ECON | [address] | | | | | [place] | | | | | [address] | | + + + + + Care Team Providers + +------+ + | Care Medical Territory Manager Name | Role | Phone | + +------+ + | Andrei Presley PCP | | | MD | | | + +------+ + Encounter Details +--------+ + + + + | Date | Type | Department | Care Team | Description | +--------+ + + + + | 05/22/ | Hospital | [facility] | Minh Curry | | | 2015 | Encounter | [facility] | [address] | | | | [address] | [address] | | | | | [address] [place], [place] | [place] [address] | | | | | [address] | [phone] | | | | | [phone] | | | +--------+ + + + [...] | + +--------+ + + + | CBC W/AUTO | STAT | 05/22/2015 | | Results for this | | DIFFERENTIAL | | 9:51 AM | | procedure are in the | | | | PST | | results section. | + +--------+ + + + | TROPONIN I | STAT | 05/22/2015 | | Results for this | | | | 9:51 AM | | procedure are in the | | | | PST | | results section. | + +--------+ + + + | COMPREHENSIVE | STAT | 05/22/2015 | | Results for this | | METABOLIC PANEL | | 9:51 AM | | procedure are in the | | | | PST | | results section. | + +--------+ + + + | XR CHEST PA OR AP | Routin | 05/22/2015 | | Results for this | | | e | 9:01 AM | | procedure are in the | | | | PST | | results section. | + +--------+ + + + documented in this encounter Results Troponin I (05/22/2015 9:51 AM PST) + +-------+ + + + | Component | Value | Ref Range | Performed | Pathologist | | | | | At | Signature | + +-------+ + + + | Troponin I | 0.01 | <=0.10 ng/mL | EXTERNAL | | | | | | LAB | | + +-------+ + + + + + | Specimen | + + | | + + + +---------+ + + | Performing | Address | City/State/Zipcode | Phone Number | | Organization | | | | + +---------+ + + | EXTERNAL LAB | | | | + +---------+ + + CBC w/ Auto Differential (05/22/2015 9:51 AM PST) + +-------+ + + + | Component | Value | Ref Range | Performed | Pathologist | | | | | At | Signature | + +-------+ + + + | WBC | 7.4 | 4.6 - 10.5 | EXTERNAL | | | | | 1000/mm3 | LAB | | + +-------+ + + + | RBC | 5.44 | 4.36 - 5.83 | EXTERNAL | | | | | mil/mm3 | LAB | | + +-------+ + + + | HGB, | 16.4 | 13.1 - 17.4 | EXTERNAL | | | External | | g/dL | LAB | | + +-------+ + + + | HCT, | 48.4 | 39.0 - 51.9 % | EXTERNAL | | | External | | | LAB | | + +-------+ + + + | MCV | 89 | 82 - 96 fl | EXTERNAL | | | | | | LAB | | + +-------+ + + + | MCH | 30.1 | 27.7 - 32.3 pg | EXTERNAL | | | | | | LAB | | + +-------+ + + + | MCHC | 33.9 | 32.0 - 36.9 | EXTERNAL | | | | | g/dL | LAB | | + +-------+ + + + | RDW-CV | 15.1 | <=17.0 % | EXTERNAL | | | | | | LAB | | + +-------+ + + + | RDW-SD | 49.3 | 34.0 - 57.0 fL | EXTERNAL | | | | | | LAB | | + +-------+ + + + | Platelet | 191 | 150 - 450 | EXTERNAL | | | Count | | 1000/mm3 | LAB | | | Plasma | | | | | + +-------+ + + + | MPV | 10 | 9.4 - 12.4 FL | EXTERNAL | | | | | | LAB | | + +-------+ + + + | % Segmented | 63.8 | 42.0 - 76.0 % | EXTERNAL | | | | | | LAB | | | Neutrophils | | | | | + +-------+ + + + | % | 26.8 | 20.0 - 40.0 % | EXTERNAL | | | Lymphocytes | | | LAB | | + +-------+ + + + | % Monocytes | 6.5 | 3.0 - 13.0 % | EXTERNAL | | | | | | LAB | | + +-------+ + + + | % | 2.2 | 0.0 - 7.0 % | EXTERNAL | | | Eosinophils | | | LAB | | + +-------+ + + + | % Basophils | 0.7 | 0.0 - 2.0 % | EXTERNAL | | | | | | LAB | | + +-------+ + + + | Absolute | 4.74 | 2.80 - 7.70 | EXTERNAL | | | Neutrophils | | 1000/mm3 | LAB | | + +-------+ + + + | Absolute | 1.99 | 1.20 - 3.30 | EXTERNAL | | | Lymphocytes | | 1000/mm3 | LAB | | + +-------+ + + + | Absolute | 0.48 | 0.00 - 0.80 | EXTERNAL | | | Monocytes | | 1000/mm3 | LAB | | + +-------+ + + + | Absolute | 0.16 | 0.00 - 0.70 | EXTERNAL | | | Eosinophils | | 1000/mm3 | LAB | | + +-------+ + + + | Absolute | 0.05 | 0.00 - 0.20 | EXTERNAL | | | Basophils | | 1000/mm3 | LAB | | + +-------+ + + + | SLIDE | NO | | EXTERNAL | | | REVIEWED | | | LAB | | + +-------+ + + + + + | Specimen | + + | | + + + +---------+ + + | Performing | Address | City/State/Zipcode | Phone Number | | Organization | | | | + +---------+ + + | EXTERNAL LAB | | | | + +---------+ + + Comprehensive Metabolic Panel (05/22/2015 9:51 AM PST) + +-------+ + + + | Component | Value | Ref Range | Performed | Pathologist | | | | | At | Signature | + +-------+ + + + | Sodium | 133 | 132 - 143 | EXTERNAL | | | | | mmol/L | LAB | | + +-------+ + + + | Potassium | 3.5 | 3.3 - 4.9 | EXTERNAL | | | | | mmol/L | LAB | | + +-------+ + + + | Cl | 103 | 95 - 108 mmol/L | EXTERNAL | | | | | | LAB | | + +-------+ + + + | CO2 | 25 | 23 - 34 mmol/L | EXTERNAL | | | | | | LAB | | + +-------+ + + + | Anion Gap | 5 | 7 - 16 | EXTERNAL | | | | | | LAB | | + +-------+ + + + | Calcium | 8.4 | 8.3 - 10.0 | EXTERNAL | | | | | mg/dL | LAB | | + +-------+ + + + | Glucose | 161 | 70 - 110 mg/dL | EXTERNAL | | | | | | LAB | | + +-------+ + + + | BUN, Bld | 18 | 5 - 26 mg/dL | EXTERNAL | | | | | | LAB | | + +-------+ + + + | Creatinine | 1.1 | 0.7 - 1.4 mg/dL | EXTERNAL | | | | | | LAB | | + +-------+ + + + | BUN/Creatin | 16.4 | 7.0 - 24.0 | EXTERNAL | | | ine Ratio | | RATIO | LAB | | + +-------+ + + + | GFR | 60 | >=60 | EXTERNAL | | | ESTIMATE | | mL/min/1.73m2 | LAB | | | (REF) | | | | | + +-------+ + + + | Bilirubin, | 0.6 | <=1.2 mg/dL | EXTERNAL | | | Total | | | LAB | | + +-------+ + + + | Protein, | 6.9 | 6.6 - 8.5 g/dL | EXTERNAL | | | Total | | | LAB | | + +-------+ + + + | Albumin | 3.5 | 3.0 - 4.5 g/dL | EXTERNAL | | | | | | LAB | | + +-------+ + + + | Alkaline | 94 | 46 - 116 U/L | EXTERNAL | | | Phosphatase | | | LAB | | + +-------+ + + + | ALT, | 23 | 16 - 63 U/L | EXTERNAL | | | External | | | LAB | | + +-------+ + + + | AST, | 7 | <=38 U/L | EXTERNAL | | | External | | | LAB | | + +-------+ + + + + + | Specimen | + + | | + + + +---------+ + + | Performing | Address | City/State/Zipcode | Phone Number | | Organization | | | | + +---------+ + + | EXTERNAL LAB | | | | + +---------+ + + XR Brandee WATSON or MAXINE (05/22/2015 9:01 AM PST) + + | Specimen | + + | | + + + + + | Narrative | Performed At | + + + | ORIGINAL SINGLE VIEW CHEST: HISTORY: | | | Syncope. FINDINGS: The heart is enlarged. There is perihilar | | | haziness. There is vascular indistinctness. Bronchial wall cuffing | | | and coarsening of interstitial lung markings. Septal lines are | | | noted at the lateral bases. Query small right pleural effusion. No | | | acute bone process. There is change of left humeral arthroplasty. | | | IMPRESSION: 1. Cardiomegaly. 2. Pulmonary edema versus | | | diffuse interstitial infectious process. Pulmonary edema, likely | | | cardiogenic, is suspected. JOB #: [id number] | | | Read By: BRUNO GREENE MD Released By: BRUNO GREENE | | | Date: 05/22/2015 17:27 | | + + + + + | Procedure Note | + + | Michael, Rad Results In - 05/23/2017 8:50 PM PST ORIGINAL SINGLE VIEW CHEST: | | HISTORY:Syncope. FINDINGS:The heart is enlarged. There is perihilar haziness. There is | | vascular indistinctness. Bronchial wall cuffing and coarsening of interstitial lung | | markings. Septal lines are noted at the lateral bases. Query small right pleural | | effusion. No acute bone process. There is change of left humeral arthroplasty. | | IMPRESSION:1. Cardiomegaly.2. Pulmonary edema versus diffuse interstitial infectious | | process. Pulmonary edema, likely cardiogenic, is suspected. JOB #: | | [id number] Read By: BRUON GREENE MD Released By: CHANDRIKA SHANNONate: | | 05/22/2015 17:27 | | | |FINDINGS: | |The heart is enlarged. There is perihilar haziness. There is vascular indistinctness. Br onchial wall cuffing and coarsening of interstitial lung markings. Septal lines are noted a t the lateral bases. Query small right pleural effusion. No acute | |bone process. There is change of left humeral arthroplasty. | | | |IMPRESSION: | |1. Cardiomegaly. | |2. Pulmonary edema versus diffuse interstitial infectious process. Pulmonary edema, likely cardiogenic, is suspected. | | | | | |JOB #: [id number] | | | | | |Read By: BRUNO GREENE MD | | | |Released By: BRUNO GREENE MD | |Date: 05/22/2015 17:27 | | | | | + + documented in this encounter Visit Diagnoses Not on filedocumented in this encounter"
--- OUTSIDE RECORDS SUMMARY | 2020-01-22 18:32 | XMS ---
PreManage Notification: NATHANIEL BADILLO Security Machine Feed Operator Events No recent Security Events currently on file [facility] There are no care providers on record at this time. [facility] has no Care Guidelines for this patient. Pratik VISIT COUNT (12 MO.) 1 Antoinette Torres 1 VINCENT Morillo TOTAL 2 NOTE: Visits indicate total known visits. ED/C VISIT TRACKING (12 MO.) 01/22/2020 18:29 VINCENT [place] TYPE: Emergency COMPLAINT: - BLOOD PRESSURE PROBLEM,WEAKNESS 07/03/2019 19:32 Antoinette CORADO TYPE: Emergency COMPLAINT: - NECK PAIN INPATIENT VISIT TRACKING (12 MO.) 07/04/2019 01:36 Neema CORADO TYPE: Inpatient [id number]
== END 2020-01-22 20:19 | disposition home or self-care (01) ==
LOC: ED 18:29
DX: T67.5XXA Heat exhaustion, unspecified, initial encounter (principal); I10 Essential (primary) hypertension; F17.200 Nicotine dependence, unspecified, uncomplicated; Z91.041 Radiographic dye allergy status; Z88.8 Allergy status to other drugs, medicaments and biological substances; Z79.899 Other long term (current) drug therapy; X58.XXXA Exposure to other specified factors, initial encounter
CPT/HCPCS: 80053; 85025; 99284; J7030

== ENCOUNTER 2021-01-23 08:47 | Emergency (ER) | payer MEDICARE ==
[~2021-01-23] VITALS: Ht 162.6 cm; Wt 63.0 kg
--- OUTSIDE RECORDS SUMMARY | 2021-01-23 08:50 | XMS ---
PreManage Notification: NATHANIEL BADILLO Security Shift Leader Events No recent Security Events currently on file CRITERIA MET - PDMP CARE PROVIDERS JEAN PAUL PACHECO [facility] 01/23/2020-Current PHONE: [phone] [place] has no Care Guidelines for this patient. Pratik VISIT COUNT (12 MO.) 1 [facility] TOTAL 1 NOTE: Visits indicate total known visits. ED/UCC VISIT TRACKING (12 MO.) 01/23/2021 08:48 [facility] [place] TYPE: Emergency COMPLAINT: - HEAD INJURY INPATIENT VISIT TRACKING (12 MO.) No inpatient visits to display in this time frame [id number]
== END 2021-01-23 13:03 | disposition home or self-care (01) ==
LOC: ED 08:47
DX: S01.81XA Laceration without foreign body of other part of head, initial encounter (principal); S20.212A Contusion of left front wall of thorax, initial encounter; I10 Essential (primary) hypertension; J44.9 Chronic obstructive pulmonary disease, unspecified; M19.90 Unspecified osteoarthritis, unspecified site; F17.200 Nicotine dependence, unspecified, uncomplicated; Z91.041 Radiographic dye allergy status; Z88.8 Allergy status to other drugs, medicaments and biological substances; Z79.899 Other long term (current) drug therapy; Y04.8XXA Assault by other bodily force, initial encounter
CPT/HCPCS: 70450; 71045; 72125; 80053; 81001; 83690; 85025; 96374; 96375; 99284-25; J1170; J2405; J7040

== ENCOUNTER 2021-06-03 16:18 | Emergency (ER) | payer OTHER, MEDICARE ==
[~2021-06-03] VITALS: Ht 162.6 cm; Wt 68.7 kg
--- NOTE | 2021-06-04 15:01 | EKG ---
[facility] [address] [place] [address] Signed Sinus rhythm with 1st degree AV block Biatrial enlargement Possible Inferior infarct , age undetermined T wave abnormality, consider anterolateral ischemia Abnormal ECG When compared with ECG of 11-MAY-2018 22:51, Criteria for Septal infarct are no longer present Borderline criteria for Inferior infarct are now present T wave inversion now evident in Anterolateral leads Confirmed by TIMOTEO DAMICO MD ([id number]) on 06/04/2021 3:01:02 PM Electronically Signed By: TIMOTEO DAMICO MD 06/04/21 1501 PATIENT NAME: NATHANIEL BADILLO Electrocardiogram DATE OF : 50 PHYSICIAN: TIMOTEO DAMICO MD REPORT #: [id number] REPORT IS CONFIDENTIAL AND NOT TO BE RELEASED WITHOUT AUTHORIZATION
== END 2021-06-03 22:13 | disposition home or self-care (01) ==
LOC: ED 16:18
DX: R55 Syncope and collapse (principal); M79.89 Other specified soft tissue disorders; I44.0 Atrioventricular block, first degree; I10 Essential (primary) hypertension; F17.200 Nicotine dependence, unspecified, uncomplicated; Z90.89 Acquired absence of other organs; Z96.641 Presence of right artificial hip joint; Z96.612 Presence of left artificial shoulder joint; Z96.653 Presence of artificial knee joint, bilateral; Z91.048 Other nonmedicinal substance allergy status; Z88.8 Allergy status to other drugs, medicaments and biological substances; Z79.899 Other long term (current) drug therapy
CPT/HCPCS: 70450; 80053; 83735; 84484; 85025; 93005; 93010; 93971; 99284-25